=== PATIENT | male | born 1935 | race Caucasian/White ===

== ENCOUNTER 2017-12-01 09:58 | Inpatient (IN) | payer MEDICARE ==
--- NOTE | 2017-12-01 11:33 | ERPHSYRPT ---
- History of Present Illness Time Seen by Provider: 12/01/17 11:13 Source: patient Exam Limitations: no limitations Patient Subjective Stated Complaint: rash Triage Nursing Assessment: pt to er c/o total body rash, states began tuesday, denies exposure to allaergen, no history of such, rash present from neck down, nothing noted on face, states upper lip feels swollen Physician History: The patient is an 82-year-old male with his complaining of a worsening red itchy blotchy rash all over his body that began 3 days ago. He's had no change in his medicines. He is eaten no new foods. He thinks his lips are slightly swollen. He has a sore throat. He denies shortness of breath. He put some old hydrocortisone cream on the rash on his legs. The cortisone cream help the itching somewhat. His past medical history is significant for diabetes, hypertension, high cholesterol, GERD. Timing/Duration: day(s) (3) Quality: itchy Severity: moderate Location: torso, hands, feet, extremities, generalized Possible Causes: no cause identified Modifying Factors: Improves With: scratching, topical steriods Associated Symptoms: hives, No difficulty breathing, No fever Allergies/Adverse Reactions: morphine Adverse Reaction (Verified 12/01/17 10:42) Fainting Home Medications: Aspirin 81 gm Chew [Baby Aspirin 81 mg Chew] 12/01/17 [History] Atenolol 12/01/17 [History] Fenofibrate,Micronized [Fenofibrate] 12/01/17 [History] Glimepiride 2 mg [Amaryl 2 MG] 12/01/17 [History] Glimepiride 2 mg [Amaryl 2 MG] 1.5 tab PO BID 12/01/17 [History] Insulin Glargine,Hum.rec.anlog [Breana Triplett] 12/01/17 [History] Isosorbide Mononitrate 30 mg [Imdur 30 MG] 12/01/17 [History] Lisinopril 5 mg [Zestril 5 MG] 12/01/17 [History] Niacin 12/01/17 [History] Omeprazole 20 MG [Prilosec 20 mg] 12/01/17 [History] Pravastatin Sodium 12/01/17 [History] Warfarin Sodium 2.5 mg [Coumadin 2.5 MG] 12/01/17 [History] Hx Tetanus, Diphtheria Vaccination/Date Given: No Hx Influenza Vaccination/Date Given: Yes Hx Pneumococcal Vaccination/Date Given: Yes - Review of Systems Constitutional: No Fever, No Chills Eyes: No Symptoms Ears, Nose, & Throat: Throat Pain, Painful Swallowing Respiratory: Cough Cardiac: No Chest Pain, No Edema, No Syncope Abdominal/Gastrointestinal: No Abdominal Pain, No Nausea, No Vomiting, No Diarrhea Genitourinary Symptoms: No Dysuria Musculoskeletal: No Back Pain, No Neck Pain Skin: No Rash Neurological: No Dizziness, No Focal Weakness, No Sensory Changes Psychological: No Symptoms Endocrine: No Symptoms Hematologic/Lymphatic: No Symptoms Immunological/Allergic: No Symptoms All Other Systems: Reviewed and Negative - Past Medical History Pertinent Past Medical History: Yes Neurological History: No Pertinent History ENT History: No Pertinent History Cardiac History: Coronary Artery Disease Respiratory History: No Pertinent History Endocrine Medical History: Diabetes Type II Musculoskeletal History: No Pertinent History GI Medical History: Gallbladder Disease History: No Pertinent History Psycho-Social History: No Pertinent History Male Reproductive Disorders: No Pertinent History - Past Surgical History Neuro Surgical History: No Pertinent History Cardiac: No Pertinent History Respiratory: No Pertinent History Gastrointestinal: Cholecystectomy Genitourinary: No Pertinent History Musculoskeletal: No Pertinent History Male Surgical History: No Pertinent History - Social History Smoking Status: Former smoker Exposure to second hand smoke: No Drug Use: none Patient Lives Alone: No - Nursing Vital Signs Nursing Vital Signs: Initial Vital Signs Temperature 97.8 F 12/01/17 10:31 Pulse Rate 88 12/01/17 10:31 Respiratory Rate 20 12/01/17 10:31 Blood Pressure 119/84 12/01/17 10:31 O2 Sat by Pulse Oximetry 96 12/01/17 10:31 Pain Scale Pain Intensity 0 - Physical Exam General Appearance: no apparent distress, alert Eye Exam: PERRL/EOMI, eyes nml inspection Ears, Nose, Throat Exam: other (pinpoint red rash around pharynx.) Neck Exam: normal inspection, non-tender, supple, full range of motion Respiratory Exam: normal breath sounds, lungs clear, No respiratory distress Cardiovascular Exam: regular rate/rhythm, normal heart sounds Gastrointestinal/Abdomen Exam: soft, mass, No tenderness Rectal Exam: not done Back Exam: normal inspection, normal range of motion, No CVA tenderness, No vertebral tenderness Extremity Exam: normal inspection, normal range of motion Neurologic Exam: alert, oriented x 3, cooperative, normal mood/affect, sensation nml, No motor deficits Skin Exam: rash (red rash of multiple sizes on upper and lower extremities, back , chest, abd.) SpO2 Interpretation: normal SpO2: 96 Oxygen Delivery: Room Air - Radiology Exams Chest X-ray Interpretation: Teleradiologist Report, Negative (stable per Dr Soni.) Ordered Tests: Active Orders 24 hr Category Date Time Status Clean Catch Urine Specimen STAT Care 12/01/17 15:07 Active IV Insertion STAT Care 12/01/17 13:57 Active Regular Diet Diet 12/01/17 Dinner Active CHEST 2 VIEWS (PA AND LAT) Stat Exams 12/01/17 11:41 Completed BMP Stat Lab 12/01/17 12:12 Completed CBC W DIFF Stat Lab 12/01/17 12:12 Completed CULTURE, THROAT Stat Lab 12/01/17 12:12 Received Lactic Acid Stat Lab 12/01/17 13:20 Completed Lactic Acid Stat Lab 12/01/17 15:42 Results [place] Screen Stat Lab 12/01/17 14:10 Completed STREP SCREEN-BETA A Stat Lab 12/01/17 12:12 Completed UA W/RFX UR CULTURE Stat Lab 12/01/17 15:07 Ordered Medication Summary Discontinued Medications Generic Name Dose Route Start Last Admin Trade Name Freq PRN Reason Stop Dose Admin Dexamethasone Sodium Phosphate 10 mg 12/01/17 11:42 12/01/17 12:05 Decadron 10mg Inj. IM 12/01/17 11:43 10 mg STAT ONE Administration Dexamethasone Sodium Phosphate Confirm 12/01/17 12:02 Decadron 10mg Inj. Administered 12/01/17 12:03 Dose 10 mg .ROUTE .STK-MED ONE Ceftriaxone Sodium/Dextrose 1 g in 50 mls @ 100 mls/hr 12/01/17 14:00 14:13 Rocephin 1 Gm-D5w 50 Ml Bag IV 12/01/17 14:29 100 mls/hr STAT ONE Administration Sodium Chloride 1,000 mls @ 999 mls/hr 12/01/17 13:57 12/01/17 14:13 Sodium Chloride 0.9% 1000 Ml IV 12/01/17 14:57 999 mls/hr .Q1H1M STA Administration Sodium Chloride Confirm 12/01/17 14:11 Sodium Chloride 0.9% 1000 Ml Administered 12/01/17 14:12 Dose 1,000 mls @ ud .ROUTE .STK-MED ONE Ceftriaxone Sodium/Dextrose Confirm 12/01/17 14:11 Rocephin 1 Gm-D5w 50 Ml Bag Administered 12/01/17 14:12 Dose 1 g in 50 mls @ ud IV .STK-MED ONE Lab/Rad Data: Laboratory Result Diagrams 12/01/17 12:12 12/01/17 12:12 Laboratory Results 12/01/17 12/01/17 12/01/17 Range/Units 15:42 14:30 14:10 WBC (4.0-10.5) K/mm3 RBC (4.1-5.6) M/mm3 Hgb (12.5-18.0) gm/dl Hct (42-50) % MCV (78-100) fl MCH (26-32) pg MCHC (32-36) g/dl RDW (11.5-14.0) % Plt Count (150-450) K/mm3 MPV (6-9.5) fl Gran % (36.0-66.0) % Lymphocytes % (24.0-44.0) % Monocytes % (0.0-12.0) % Eosinophils % (0.00-5.0) % Basophils % (0.0-0.4) % Basophils # (0-0.4) Sodium (136-145) mEq/L Potassium (3.5-5.1) mEq/L Chloride (98-107) mEq/L Carbon Dioxide (21-32) mEq/L Anion Gap (5-15) MEQ/L BUN (9-20) mg/dL Creatinine (0.55-1.30) mg/dl Estimated GFR ML/MIN Glucose (70-110) MG/DL Lactic Acid 2.2 H (0.4-2.0) Calcium (8.5-10.1) mg/dL Monoscreen NEGATIVE (Negative) Influenza Type A Ag NEGATIVE (NEGATIVE) Influenza Type B Ag NEGATIVE (NEGATIVE) RSV (PCR) NEGATIVE (Negative) Streptococcus Screen (Negative) 12/01/17 12/01/17 12/01/17 Range/Units 13:20 12:12 12:12 WBC (4.0-10.5) K/mm3 RBC (4.1-5.6) M/mm3 Hgb (12.5-18.0) gm/dl Hct (42-50) % MCV (78-100) fl MCH (26-32) pg MCHC (32-36) g/dl RDW (11.5-14.0) % Plt Count (150-450) K/mm3 MPV (6-9.5) fl Gran % (36.0-66.0) % Lymphocytes % (24.0-44.0) % Monocytes % (0.0-12.0) % Eosinophils % (0.00-5.0) % Basophils % (0.0-0.4) % Basophils # (0-0.4) Sodium 130 L (136-145) mEq/L Potassium 4.3 (3.5-5.1) mEq/L Chloride 97 L (98-107) mEq/L Carbon Dioxide 23.7 (21-32) mEq/L Anion Gap 10.2 (5-15) MEQ/L BUN 23 H (9-20) mg/dL Creatinine 1.36 H (0.55-1.30) mg/dl Estimated GFR 53 ML/MIN Glucose 291 H (70-110) MG/DL Lactic Acid 2.5 H (0.4-2.0) Calcium 9.4 (8.5-10.1) mg/dL Monoscreen (Negative) Influenza Type A Ag (NEGATIVE) Influenza Type B Ag (NEGATIVE) RSV (PCR) (Negative) Streptococcus Screen NEGATIVE (Negative) 12/01/17 Range/Units 12:12 WBC 12.9 H (4.0-10.5) K/mm3 RBC 5.03 (4.1-5.6) M/mm3 Hgb 14.6 (12.5-18.0) gm/dl Hct 45.2 (42-50) % MCV 89.9 (78-100) fl MCH 29.0 (26-32) pg MCHC 32.3 (32-36) g/dl RDW 14.1 H (11.5-14.0) % Plt Count 287 (150-450) K/mm3 MPV 11.4 H (6-9.5) fl Gran % 80.5 H (36.0-66.0) % Lymphocytes % 10.6 L (24.0-44.0) % Monocytes % 6.1 (0.0-12.0) % Eosinophils % 2.4 (0.00-5.0) % Basophils % 0.4 (0.0-0.4) % Basophils # 0.05 (0-0.4) Sodium (136-145) mEq/L Potassium (3.5-5.1) mEq/L Chloride (98-107) mEq/L Carbon Dioxide (21-32) mEq/L Anion Gap (5-15) MEQ/L BUN (9-20) mg/dL Creatinine (0.55-1.30) mg/dl Estimated GFR ML/MIN Glucose (70-110) MG/DL Lactic Acid (0.4-2.0) Calcium (8.5-10.1) mg/dL Monoscreen (Negative) Influenza Type A Ag (NEGATIVE) Influenza Type B Ag (NEGATIVE) RSV (PCR) (Negative) Streptococcus Screen (Negative) - Progress Progress: unchanged Discussed with : Freddy Will see patient in: hospital (observation) Counseled pt/family regarding: lab results, diagnosis, rad results - Departure Time of Disposition: 15:48 Departure Disposition: Observation (per Dr Hayes) Clinical Impression: Rash Condition: Stable Critical Care Time: No Referrals: CONY BENSON [Primary Care Provider] -
[2017-12-01] MEDS ORDERED: DECADRON 10MG INJ. IM ONE (11:42)
[2017-12-01] MEDS ORDERED: DECADRON 10MG INJ. ONE (12:02)
--- NOTE | 2017-12-01 12:12 | XRAY ---
Indication: Cough and rash. Comparison: April 21, 2008. PA/lateral chest again markedly hyperinflated with scattered fibrosis/scarring and tiny calcific granulomas. No focal infiltrate, consolidation, or large effusion. Heart is not enlarged. Bony thorax intact again with osteopenia and degenerative changes. Impression: Stable nonacute hyperinflated chest with chronic features.
[2017-12-01 12:14] LABS: BASOPHIL % 0.4 % (0.0-0.4); Basophil (Absolute #) 0.05 (0-0.4); Eosinophil % 2.4 % (0.00-5.0); Eosinophil (Absolute #) 0.31 (0-0.5); Granulocyte Absolute (ANC) 10.38 (1.4-6.9); Granulocytes % 80.5 % (36.0-66.0); Hematocrit 45.2 % (42-50); Hemoglobin 14.6 gm/dl (12.5-18.0); Lymphocyte (Absolute #) 1.37 (1.0-4.6); Lymphocytes % 10.6 % (24.0-44.0); Mean Cell Volume 89.9 fl (78-100); Mean Corpuscular Hgb Concent. 32.3 g/dl (32-36); Mean Platelet Volume 11.4 fl (6-9.5); Monocyte (Absolute #) 0.79 (0.0-1.3); Monocytes % 6.1 % (0.0-12.0); Platelet Count 287 K/mm3 (150-450); Red Blood Count 5.03 M/mm3 (4.1-5.6); Red Cell Distribution Width 14.1 % (11.5-14.0); White Blood Count 12.9 K/mm3 (4.0-10.5)
[2017-12-01 12:34] LABS: ANION GAP 10.2 MEQ/L (5-15); Calcium 9.4 mg/dL (8.5-10.1); Carbon Dioxide 23.7 mEq/L (21-32); Creatinine 1 1.36 mg/dl (0.55-1.30); Potassium 4.3 mEq/L (3.5-5.1)
[2017-12-01 13:24] LABS: Lactic Acid 2.5 (0.4-2.0)
[2017-12-01] MEDS ORDERED: Sodium Chloride 0.9% 1000 ML 1,000 ML IV STA (13:57)
[2017-12-01] MEDS ORDERED: ROCEPHIN 1 Gm-D5w 50 ml Bag** 1 G/50 ML IVPB IV ONE ×2 (14:00→14:11)
[2017-12-01] MEDS ORDERED: Sodium Chloride 0.9% 1000 ML 1,000 ML ONE (14:11)
[2017-12-01 15:02] LABS: INFLUENZA A NEGATIVE (NEGATIVE); INFLUENZA B NEGATIVE (NEGATIVE); RESPIRATORY SYNCTIAL VIRUS NEGATIVE (Negative)
[2017-12-01 15:46] LABS: Lactic Acid 2.2 (0.4-2.0)
[2017-12-01 15:56] LABS: Appearance CLEAR (CLEAR); Bilirubin NEGATIVE (NEGATIVE); Blood NEGATIVE Ery/ul (0-5); Glucose 500 mg/dL (NEGATIVE); Ketones NEGATIVE (NEGATIVE); Leukocyte Esterase NEGATIVE (NEGATIVE); Nitrite NEGATIVE (NEGATIVE); Protein,Urine Dip NEGATIVE (Negative); Urobilinogen NORMAL mg/dL (0-1)
[2017-12-01 18:09] LABS: INR 3.04 (0.8-3.0)
--- NOTE | 2017-12-01 20:16 | PCM.HP ---
History of Present Illness - Chief Complaint Chief Complaint: rash History of Present Illness: is a 82 year old male pt of Dr. Simon who came to ER c/o 3 d of rash. It started with skin itching and some redness. Yesterday he states he could count the number of lesions on his R thigh, but today there are innumerable lesions over the whole body, sparing the face. They are somewhat itchy. Not painful. Overall he has been feeling well, some cough over th elast week or two, otherwise no sx. He feels the rash gets more red when he needs to urinate. He received some IV steroid and IV antibiotic in the ER but is not seeing any decrease in the rash so far. Pt denies any recent medication change. His did start using a different kind of bleach in the white clothes recently, otherwise no changes in household products. - Review of Systems Ears, Nose, & Throat: Throat Pain Respiratory: Cough Psychological: Suicidal Ideations (vague, non specific - wouldn't do it because "I'm a coward." and "I have a loving family"), No Anxiety, No Depression All Other Systems: Reviewed and Negative Medications & Allergies Home Medications: Home Medication List Aspirin 81 gm Chew [Baby Aspirin 81 mg Chew] 81 PO HS 12/01/17 [History] Atenolol 25 PO DAILY 12/01/17 [History] Fenofibrate,Micronized [Fenofibrate] 134 PO HS 12/01/17 [History] Glimepiride 2 mg [Amaryl 2 MG] 1.5 tab PO BID 12/01/17 [History Confirmed 12/01/17] Insulin Glargine,Hum.rec.anlog [Breana Triplett] 50 units HS 12/01/17 [History Confirmed 12/01/17] Isosorbide Mononitrate 30 mg [Imdur 30 MG] 30 PO DAILY 12/01/17 [History] Lisinopril 5 mg [Zestril 5 MG] 5 PO DAILY 12/01/17 [History] Niacinamide [Niacin] 1,000 mg PO HS 12/01/17 [History] Omeprazole 20 MG [Prilosec 20 mg] 20 PO HS 12/01/17 [History] Pravastatin Sodium 40 PO HS 12/01/17 [History] Warfarin Sodium 2.5 mg [Coumadin 2.5 MG] 2.5 PO HS 12/01/17 [History] Allergies/Adverse Reactions: Allergies Allergy/AdvReac Type Severity Reaction Status Date / Time morphine AdvReac Fainting Verified 12/01/17 10:42 - Past Medical History Past Medical History: Yes Neurological History: No Pertinent History ENT History: No Pertinent History Cardiac History: Coronary Artery Disease Respiratory History: No Pertinent History Endocrine Medical History: Diabetes Type II Musculoskelatal History: No Pertinent History GI Medical History: Gallbladder Disease History: No Pertinent History Pyscho-Social History: No Pertinent History Male Reproductive Disorders: No Pertinent History - Past Surgical History Past Surgical History: Yes (gallbladder, 2 stents) Neuro Surgical History: No Pertinent History Cardiac History: No Pertinent History Respiratory Surgery: No Pertinent History GI Surgical History: Cholecystectomy Genitourinary Surgical Hx: No Pertinent History Musculskeletal Surgical Hx: No Pertinent History Male Surgical History: No Pertinent History - Social History Smoking Status: Never smoker Exposure to second hand smoke: No Alcohol: None Drug Use: none - Physical Exam Vital Signs: Vital Signs - 24 hr Temp Pulse Resp BP Pulse Ox 12/01/17 17:50 98.4 F 78 16 122/62 98 12/01/17 17:05 98.5 F 76 18 126/76 94 L 12/01/17 17:03 98.3 F 78 18 126/76 93 L 12/01/17 16:50 98.6 F 76 20 130/62 94 L 12/01/17 16:44 98.6 F 80 20 130/68 94 L 12/01/17 16:40 98.3 F 78 18 126/76 93 L 12/01/17 15:54 96 12/01/17 15:50 98.3 F 78 18 128/71 93 L 12/01/17 15:09 74 16 110/59 93 L 12/01/17 11:56 70 20 120/80 97 12/01/17 10:31 97.8 F 88 20 119/84 96 General Appearance: no apparent distress, alert Neurologic Exam: oriented x 3, cooperative Eye Exam: eyes nml inspection, other (no lesions near eyes; no lesions on face) Ears, Nose, Throat Exam: moist mucous membranes, pharyngeal erythema (soft palate wiht erythematous area vs 2 confluent lesions) Neck Exam: normal inspection, non-tender, supple, No lymphadenopathy Respiratory Exam: normal breath sounds, lungs clear, No crackles/rales, No rhonchi, No wheezing Cardiovascular Exam: regular rate/rhythm, normal heart sounds, No murmur Gastrointestinal/Abdomen Exam: soft, normal bowel sounds, No tenderness, No distention, No mass, No guarding, No rebound Extremity Exam: other (R ankle medially with curvilinear abrasion wiht surrounding erythema), No pedal edema, No swelling Skin Exam: warm, dry, rash (numerous erythematous small papules, some with blanching erythema, over legs, feet, arms, abdomen, back. There are some in the groin area. Some on plantar surfaces and palmar surfaces. Somewhat coalescent at elbows and groin. nttp. no pustules.) Assessment/Plan (1) Rash Current Visit: Yes Status: Acute Assessment & Plan: I don't believe this is infectious, he's really had no prodromal symptoms. Concern for Atkins-Vincenzo Syndrome or erythema multiforme (although pt reallydoes not have typical target lesions). Check ESR and CRP. If no improvement in the morning, will biopsy a lesion or two. If worsening tomorrow , would consider transfer to level of care with ID or dermatology available. He is certainly feeling well and stable at this point. Code(s): R21 - RASH AND OTHER NONSPECIFIC SKIN ERUPTION
[2017-12-01] MEDS ORDERED: CHLORASEPTIC SPRAY 180 ML PO PRN (20:50)
[2017-12-01] MEDS ORDERED: ECOTRIN 81 MG PO ONE (20:59)
[2017-12-01] MEDS ORDERED: XYLOCAINE 1%/Epi 1:100000 MDV 20 ML ONE (21:52)
[2017-12-01] MEDS ORDERED: ZOCOR 20MG PO SCH (22:00)
[2017-12-01] MEDS ORDERED: BABY ASPIRIN 81 MG CHEW PO SCH (22:00)
[2017-12-01] MEDS: Amaryl 2 MG PO SCH (22:33)
[2017-12-01] MEDS: Protonix 40MG Tablet PO SCH (22:34)
[2017-12-01] MEDS: Coumadin 2.5 MG PO SCH (22:35)
[2017-12-02] MEDS ORDERED: Lantus Insulin SQ SCH ×3 (01:06→22:00)
[2017-12-02 05:40] LABS: Lactic Acid 2.6 (0.4-2.0)
[2017-12-02 05:58] LABS: BASOPHIL % 0.2 % (0.0-0.4); Basophil (Absolute #) 0.04 (0-0.4); Eosinophil % 0.3 % (0.00-5.0); Eosinophil (Absolute #) 0.06 (0-0.5); Granulocyte Absolute (ANC) 16.44 (1.4-6.9); Granulocytes % 87.2 % (36.0-66.0); Hematocrit 39.9 % (42-50); Hemoglobin 12.9 gm/dl (12.5-18.0); Lymphocyte (Absolute #) 1.31 (1.0-4.6); Mean Cell Volume 90.1 fl (78-100); Mean Corpuscular Hemoglobin 29.1 pg (26-32); Mean Corpuscular Hgb Concent. 32.3 g/dl (32-36); Mean Platelet Volume 11.8 fl (6-9.5); Monocyte (Absolute #) 0.99 (0.0-1.3); Monocytes % 5.3 % (0.0-12.0); Platelet Count 308 K/mm3 (150-450); Red Blood Count 4.43 M/mm3 (4.1-5.6); Red Cell Distribution Width 13.7 % (11.5-14.0); White Blood Count 18.8 K/mm3 (4.0-10.5)
[2017-12-02 06:11] LABS: ANION GAP 15.3 MEQ/L (5-15); Calcium 9.3 mg/dL (8.5-10.1); Carbon Dioxide 23.8 mEq/L (21-32); Creatinine 1 1.31 mg/dl (0.55-1.30); Potassium 4.2 mEq/L (3.5-5.1)
--- NOTE | 2017-12-02 09:05 | PCM.NOTE ---
Date and Time: 12/02/17 0900 Subjective Assessment: Pt thinks his rash is perhaps a little better on his R forearm. Itchy. Harvinder po well. Otherwise feeling well. - Review of Systems Constitutional: No Fever Skin: Rash Objective Exam General Appearance: no apparent distress, alert Neurologic Exam: oriented x 3, cooperative Skin Exam: warm, dry, rash (as before, numerous erythematous papules on erythematous base, at times confluent) Respiratory Exam: normal breath sounds, lungs clear, No crackles/rales, No rhonchi, No wheezing Cardiovascular Exam: regular rate/rhythm, normal heart sounds, No murmur OBJECTIVE DATA Vital Signs: Vital Signs - 24 hr Temp Pulse Resp BP Pulse Ox 12/02/17 07:00 97.7 F 77 18 134/89 94 L 12/02/17 03:00 97.8 F 76 20 99/51 93 L 12/01/17 23:53 98.1 F 84 18 143/67 93 L 12/01/17 21:40 98.1 F 81 18 144/65 94 L 12/01/17 17:50 98.4 F 78 16 122/62 98 12/01/17 17:05 98.5 F 76 18 126/76 94 L 12/01/17 17:03 98.3 F 78 18 126/76 93 L 12/01/17 16:50 98.6 F 76 20 130/62 94 L 12/01/17 16:44 98.6 F 80 20 130/68 94 L 12/01/17 16:40 98.3 F 78 18 126/76 93 L 12/01/17 15:54 96 12/01/17 15:50 98.3 F 78 18 128/71 93 L 12/01/17 15:09 74 16 110/59 93 L 12/01/17 11:56 70 20 120/80 97 12/01/17 10:31 97.8 F 88 20 119/84 96 Pain Assessment - Last Documented Pain Intensity 0 Pain Scale Used FLACC Intake and Output: Intake & Output 11/29/17 11/30/17 12/01/17 12/02/17 11:59 11:59 11:59 11:59 Intake Total 1220 Balance 1220 Weight 87.1 kg Lab Results: Accuchecks Accucheck Value: 248 Lab Results-Last 24 Hours 12/02/17 12/02/17 12/02/17 Range/Units 05:25 05:25 05:25 WBC 18.8 H (4.0-10.5) K/mm3 RBC 4.43 (4.1-5.6) M/mm3 Hgb 12.9 (12.5-18.0) gm/dl Hct 39.9 L (42-50) % MCV 90.1 (78-100) fl MCH 29.1 (26-32) pg MCHC 32.3 (32-36) g/dl RDW 13.7 (11.5-14.0) % Plt Count 308 (150-450) K/mm3 MPV 11.8 H (6-9.5) fl Gran % 87.2 H (36.0-66.0) % Lymphocytes % 7.0 L (24.0-44.0) % Monocytes % 5.3 (0.0-12.0) % Eosinophils % 0.3 (0.00-5.0) % Basophils % 0.2 (0.0-0.4) % Basophils # 0.04 (0-0.4) ESR 5 (0-15) mm/hr Sodium 138 (136-145) mEq/L Potassium 4.2 (3.5-5.1) mEq/L Chloride 103 (98-107) mEq/L Carbon Dioxide 23.8 (21-32) mEq/L Anion Gap 15.3 H (5-15) MEQ/L BUN 22 H (9-20) mg/dL Creatinine 1.31 H (0.55-1.30) mg/dl Estimated GFR 56 ML/MIN Glucose 297 H (70-110) MG/DL Lactic Acid (0.4-2.0) Calcium 9.3 (8.5-10.1) mg/dL 12/02/17 Range/Units 05:30 WBC (4.0-10.5) K/mm3 RBC (4.1-5.6) M/mm3 Hgb (12.5-18.0) gm/dl Hct (42-50) % MCV (78-100) fl MCH (26-32) pg MCHC (32-36) g/dl RDW (11.5-14.0) % Plt Count (150-450) K/mm3 MPV (6-9.5) fl Gran % (36.0-66.0) % Lymphocytes % (24.0-44.0) % Monocytes % (0.0-12.0) % Eosinophils % (0.00-5.0) % Basophils % (0.0-0.4) % Basophils # (0-0.4) ESR (0-15) mm/hr Sodium (136-145) mEq/L Potassium (3.5-5.1) mEq/L Chloride (98-107) mEq/L Carbon Dioxide (21-32) mEq/L Anion Gap (5-15) MEQ/L BUN (9-20) mg/dL Creatinine (0.55-1.30) mg/dl Estimated GFR ML/MIN Glucose (70-110) MG/DL Lactic Acid 2.6 H (0.4-2.0) Calcium (8.5-10.1) mg/dL Assessment/Plan (1) Rash Current Visit: Yes Status: Acute Assessment & Plan: ESR is nl. WBC elevated today but he received decadron in ER yesterday. May have slight improvement; give IV solumedrol now and if d/c to home will give kenalog before discharge. Biopsy taken of area on R lower back and sent to pathology. I will discuss with dermatology, would like for them to see him today. Code(s): R21 - RASH AND OTHER NONSPECIFIC SKIN ERUPTION (2) Abrasion Current Visit: Yes Status: Acute Assessment & Plan: On ankle. Received IV rocephin for this. Code(s): T14.8XXA - OTHER INJURY OF UNSPECIFIED BODY REGION, INITIAL ENCOUNTER
[2017-12-02] MEDS ORDERED: solu-MEDROL 40 MG IV ONE (09:30)
[2017-12-02] MEDS ORDERED: TENORMIN 50 MG PO SCH (10:00)
[2017-12-02] MEDS ORDERED: Zestril 5 MG PO SCH (10:00)
[2017-12-02] MEDS: ROCEPHIN 1 Gm-D5w 50 ml Bag** 1 G/50 ML IVPB IV SCH (10:33)
[2017-12-02] MEDS: Amaryl 2 MG PO SCH (10:34)
[2017-12-02] MEDS: Imdur 30 MG PO SCH (10:34)
[2017-12-02] MEDS ORDERED: Sodium Chloride 0.9% 1000 ML 1,000 ML IV SCH ×2 (12:30→16:30)
[2017-12-02] MEDS: Sodium Chloride 0.9% 1000 ML 1,000 ML IV SCH ×2 (13:04→15:36)
[2017-12-02] MEDS: NovoLOG Insulin SQ PRN ×3 (13:12→22:11)
[2017-12-02] MEDS ORDERED: Kenalog-40 IM ONE (14:45)
[2017-12-02 15:12] LABS: Lactic Acid 3.1 (0.4-2.0)
[2017-12-02] MEDS: BENADRYL 25 MG CAPSULE PO PRN ×2 (18:39→23:31)
[2017-12-02 20:41] LABS: Lactic Acid 3.7 (0.4-2.0)
[2017-12-02] MEDS ORDERED: BABY ASPIRIN 81 MG CHEW PO SCH (22:00)
[2017-12-02] MEDS ORDERED: ECOTRIN 81 MG PO SCH (22:00)
[2017-12-02] MEDS ORDERED: Tricor 145 MG PO SCH (22:00)
[2017-12-02] MEDS: Protonix 40MG Tablet PO SCH (22:10)
[2017-12-02] MEDS: Coumadin 2.5 MG PO SCH (22:10)
[2017-12-02] MEDS: CHLORASEPTIC SPRAY 180 ML PO PRN (22:55)
[2017-12-03] MEDS: CHLORASEPTIC SPRAY 180 ML PO PRN ×2 (03:05→08:06)
[2017-12-03 06:39] LABS: ALBUMIN 3.1 g/dL (3.4-5.0); ALKALINE PHOSPHATASE 52 U/L (46-116); ANION GAP 11.4 MEQ/L (5-15); BLOOD UREA NITROGEN 19 mg/dL (9-20); CHLORIDE 105 mEq/L (98-107); Calcium 8.6 mg/dL (8.5-10.1); Carbon Dioxide 25.4 mEq/L (21-32); Creatinine 1 1.18 mg/dl (0.55-1.30); EST GLOMERULAR FILTRATION RATE > 60 ML/MIN; Glucose 232 MG/DL (70-110); SGOT/AST 16 U/L (15-37); SGPT/ALT 13 U/L (12-78); SODIUM 138 mEq/L (136-145); Total Protein 6.2 gm/dL (6.4-8.2)
[2017-12-03 06:42] LABS: INR 2.81 (0.8-3.0)
[2017-12-03] MEDS ORDERED: NovoLOG Insulin SQ SCH (07:30)
[2017-12-03] MEDS: BENADRYL 25 MG CAPSULE PO PRN ×6 (08:05→22:52)
[2017-12-03] MEDS: Imdur 30 MG PO SCH (08:06)
[2017-12-03] MEDS: ROCEPHIN 1 Gm-D5w 50 ml Bag** 1 G/50 ML IVPB IV SCH ×2 (11:12→13:03)
--- NOTE | 2017-12-03 11:31 | PCM.NOTE ---
Date and Time: 12/03/17 1125 Subjective Assessment: rash no change swelling and pain in throat worsening. feeling swollen in hands and more short of breath Objective Exam General Appearance: no apparent distress, obese Neurologic Exam: alert, oriented x 3, cooperative Skin Exam: warm, dry, other (diffuse bright red raised macular papular rash with some pustules sparing the face and head and involving the left sole and bilateral palms. no draining pustules. involves testicles bilateral but no chancaroid. no herrald patch and does not follow Beau lines.) Eye Exam: PERRL, EOMI, No scleral icterus, No pale conjunctivae Ears, Nose, Throat Exam: moist mucous membranes (pharyngitis and uvulitis) Neck Exam: non-tender, supple, full range of motion, No meningismus, No Brudzinski, No Kernig's Respiratory Exam: normal breath sounds, lungs clear, No crackles/rales, No rhonchi, No wheezing Cardiovascular Exam: regular rate/rhythm, normal heart sounds, No murmur Gastrointestinal/Abdomen Exam: soft, normal bowel sounds, No tenderness, No distention, No mass Extremity Exam: normal inspection, other (bilateral mild edema hands) Male Genitalia Exam: other (the same lesions present on the trunk also involve scrotum and penis to lesser extent but no open ulcerations or chancaroid), No testicular mass OBJECTIVE DATA Vital Signs: Vital Signs - 24 hr Temp Pulse Resp BP BP Pulse Ox 12/03/17 07:42 98.3 F 60 20 126/61 95 12/03/17 04:00 97.6 F 61 24 102/52 94 L 12/03/17 00:00 97.6 F 64 20 114/55 91 L 12/02/17 20:00 98.4 F 63 24 118/58 89/54 91 L 12/02/17 16:00 97.9 F 92 H 18 89/54 92 L Pain Assessment - Last Documented Pain Intensity 0 Pain Scale Used 0-10 Pain Scale Intake and Output: Intake & Output 11/30/17 12/01/17 12/02/17 12/03/17 11:59 11:59 11:59 11:59 Intake Total 1760 5453 Output Total 2960 Balance 1760 2813 Weight 87.1 kg Lab Results: Accuchecks Date 12/03/17 Date 12/02/17 Time 07:30 Accucheck Value: 221 Accucheck Value: 298 Accucheck Value: 362 Accucheck Value: 342 Lab Results-Last 24 Hours 12/02/17 12/02/17 12/02/17 Range/Units 05:25 15:00 20:29 INR (0.8-3.0) Sodium (136-145) mEq/L Potassium (3.5-5.1) mEq/L Chloride (98-107) mEq/L Carbon Dioxide (21-32) mEq/L Anion Gap (5-15) MEQ/L BUN (9-20) mg/dL Creatinine (0.55-1.30) mg/dl Estimated GFR ML/MIN Glucose (70-110) MG/DL Hemoglobin A1c 10.0 H (4.5-6.2) Lactic Acid 3.1 H 3.7 H (0.4-2.0) Calcium (8.5-10.1) mg/dL Total Bilirubin (0.2-1.0) mg/dL AST (15-37) U/L ALT (12-78) U/L Alkaline Phosphatase (46-116) U/L Serum Total Protein (6.4-8.2) gm/dL Albumin (3.4-5.0) g/dL 12/03/17 12/03/17 12/03/17 Range/Units 05:45 05:45 05:45 INR 2.81 (0.8-3.0) Sodium 138 (136-145) mEq/L Potassium 4.0 (3.5-5.1) mEq/L Chloride 105 (98-107) mEq/L Carbon Dioxide 25.4 (21-32) mEq/L Anion Gap 11.4 (5-15) MEQ/L BUN 19 (9-20) mg/dL Creatinine 1.18 (0.55-1.30) mg/dl Estimated GFR > 60 ML/MIN Glucose 232 H (70-110) MG/DL Hemoglobin A1c (4.5-6.2) Lactic Acid 1.7 (0.4-2.0) Calcium 8.6 (8.5-10.1) mg/dL Total Bilirubin 0.40 (0.2-1.0) mg/dL AST 16 (15-37) U/L ALT 13 (12-78) U/L Alkaline Phosphatase 52 (46-116) U/L Serum Total Protein 6.2 L (6.4-8.2) gm/dL Albumin 3.1 L (3.4-5.0) g/dL Assessment/Plan (1) Shortness of breath Current Visit: Yes Status: Acute Assessment & Plan: he presented with a diffuse rash sparing the face and involving the palms and left sole he had a cat scratch on the right foot that is more red and irritated and occurred prior to the rash. cover for cellulites due to cat scratch will change from ceftriaxone to unasyn the disseminated rash need to rule out secondary syphilis RPR is pending will place in contact isolation pending results With the increased swelling in throat monitor for worsening respiratory distress with the lactic acidosis now improving less likely vasculitis with the normal esr and lack of improvement with the steroids ANCA testing and skin biopsy pending Possible drug reaction: have d/c his glyburide, lisinopril and atenolol monitor for symptoms none of the medications were new Continue titrate the insulin for uncontrolled diabetes chronically worse with the steroids he had no exposure to ticks, or uncooked seafood and no travel, it is not in the typical distribution for pityriasis rosea Code(s): R06.02 - SHORTNESS OF BREATH (2) Throat swelling Current Visit: Yes Status: Acute Code(s): R22.1 - LOCALIZED SWELLING, MASS AND LUMP, NECK (3) Rash Current Visit: Yes Status: Acute Code(s): R21 - RASH AND OTHER NONSPECIFIC SKIN ERUPTION (4) Uncontrolled diabetes mellitus Current Visit: Yes Status: Acute Code(s): E11.65 - TYPE 2 DIABETES MELLITUS WITH HYPERGLYCEMIA (5) Pharyngitis Current Visit: Yes Status: Acute Code(s): J02.9 - ACUTE PHARYNGITIS, UNSPECIFIED (6) Cat scratch Current Visit: Yes Status: Acute Code(s): W55.03XA - SCRATCHED BY CAT, INITIAL ENCOUNTER (7) Cellulitis Current Visit: Yes Status: Acute Code(s): L03.90 - CELLULITIS, UNSPECIFIED
[2017-12-03] MEDS: NovoLOG Insulin SQ SCH ×2 (12:21→16:55)
[2017-12-03] MEDS: Unasyn 3GM / NaCl 100ML 3 GM/100 ML IVPB IV SCH ×3 (12:21→23:00)
[2017-12-03] MEDS: NovoLOG Insulin SQ PRN (12:22)
[2017-12-03 17:19] LABS: BASOPHIL % 0.3 % (0.0-0.4); Basophil (Absolute #) 0.06 (0-0.4); Eosinophil % 3.1 % (0.00-5.0); Eosinophil (Absolute #) 0.56 (0-0.5); Granulocyte Absolute (ANC) 15.26 (1.4-6.9); Granulocytes % 83.6 % (36.0-66.0); Hematocrit 41.8 % (42-50); Hemoglobin 13.2 gm/dl (12.5-18.0); Lymphocytes % 7.1 % (24.0-44.0); Mean Cell Volume 93.5 fl (78-100); Mean Corpuscular Hemoglobin 29.5 pg (26-32); Mean Corpuscular Hgb Concent. 31.6 g/dl (32-36); Mean Platelet Volume 12.6 fl (6-9.5); Monocyte (Absolute #) 1.08 (0.0-1.3); Monocytes % 5.9 % (0.0-12.0); Platelet Count 273 K/mm3 (150-450); Red Blood Count 4.47 M/mm3 (4.1-5.6); Red Cell Distribution Width 14.3 % (11.5-14.0); White Blood Count 18.3 K/mm3 (4.0-10.5)
[2017-12-03] MEDS: Protonix 40MG Tablet PO SCH (22:52)
[2017-12-03] MEDS: Coumadin 2.5 MG PO SCH (22:52)
[2017-12-03] MEDS: Lantus Insulin SQ SCH (22:53)
[2017-12-04] MEDS: Unasyn 3GM / NaCl 100ML 3 GM/100 ML IVPB IV SCH (05:14)
[2017-12-04 05:50] LABS: Granulocyte Absolute (ANC) 9.55 (1.4-6.9); Hematocrit 40.4 % (42-50); Hemoglobin 13.2 gm/dl (12.5-18.0); Mean Cell Volume 90.4 fl (78-100); Mean Corpuscular Hemoglobin 29.5 pg (26-32); Mean Corpuscular Hgb Concent. 32.7 g/dl (32-36); Mean Platelet Volume 11.9 fl (6-9.5); Platelet Count 270 K/mm3 (150-450); Red Blood Count 4.47 M/mm3 (4.1-5.6); White Blood Count 12.8 K/mm3 (4.0-10.5)
[2017-12-04 06:05] LABS: ALBUMIN 3.1 g/dL (3.4-5.0); ALKALINE PHOSPHATASE 41 U/L (46-116); ANION GAP 12.3 MEQ/L (5-15); BLOOD UREA NITROGEN 19 mg/dL (9-20); CHLORIDE 105 mEq/L (98-107); Calcium 8.7 mg/dL (8.5-10.1); Carbon Dioxide 25.3 mEq/L (21-32); Creatinine 1 1.22 mg/dl (0.55-1.30); EST GLOMERULAR FILTRATION RATE > 60 ML/MIN; Glucose 198 MG/DL (70-110); SGOT/AST 16 U/L (15-37); SGPT/ALT 15 U/L (12-78); SODIUM 139 mEq/L (136-145); Total Protein 6.2 gm/dL (6.4-8.2)
[2017-12-04 06:11] LABS: INR 2.63 (0.8-3.0)
[2017-12-04 07:38] LABS: BAND 1 % (0.0-2.0); Eosinophil 5 % (0.00-3.0); Lymphocytes 16 % (24-44); Monocyte 2 % (0.0-12.0); Neutrophils 76 % (36.-66.); Platelet Estimate NORMAL (NORMAL); Total Cells Counted 100
[2017-12-04 07:39] LABS: Toxic Granulation 1+
[2017-12-04] MEDS: NovoLOG Insulin SQ SCH ×3 (07:54→17:07)
[2017-12-04] MEDS: Imdur 30 MG PO SCH (07:54)
[2017-12-04] MEDS: BENADRYL 25 MG CAPSULE PO PRN ×4 (08:02→21:42)
--- NOTE | 2017-12-04 09:21 | PCM.NOTE ---
Date and Time: 12/04/17914 Subjective Assessment: the rash is relatively unchanged throat swelling and difficulty breathing is resolved throat pain improving now some irritation of tongue as well lips dry swelling in hands and feet improving Objective Exam General Appearance: no apparent distress, alert Neurologic Exam: alert, oriented x 3, cooperative, normal mood/affect, nml cerebellar function, sensation nml, No motor deficits Skin Exam: warm, dry, rash (diffuse nonblanching macular papular rash with some pustules sparing the face and neck involving the palms and soles) Eye Exam: PERRL, EOMI, eyes nml inspection Ears, Nose, Throat Exam: normal ENT inspection, pharynx normal, moist mucous membranes Neck Exam: normal inspection, non-tender, supple, full range of motion Respiratory Exam: normal breath sounds, lungs clear, No respiratory distress Cardiovascular Exam: regular rate/rhythm, normal heart sounds Gastrointestinal/Abdomen Exam: soft, No tenderness, No mass Extremity Exam: normal inspection, normal range of motion Back Exam: normal inspection, normal range of motion, No CVA tenderness, No vertebral tenderness Male Genitalia Exam: deferred Rectal Exam: deferred OBJECTIVE DATA Vital Signs: Vital Signs - 24 hr Temp Pulse Resp BP Pulse Ox 12/04/17 07:31 98.2 F 80 20 130/76 97 12/04/17 04:00 98.5 F 74 18 134/65 90 L 12/04/17 00:00 98.1 F 79 22 129/63 93 L 12/03/17 20:00 97.8 F 75 20 131/69 93 L 12/03/17 16:00 96.4 F 116/65 12/03/17 12:00 97.8 F Pain Assessment - Last Documented Pain Intensity 0 Pain Scale Used 0-10 Pain Scale Intake and Output: Intake & Output 12/01/17 12/02/17 12/03/17 12/04/17 11:59 11:59 11:59 11:59 Intake Total 1250 Output Total 2400 Balance -1150 Lab Results: Accuchecks Date 12/04/17 Date 12/03/17 Date 12/03/17 Date 12/03/17 Time 07:32 Time 22:00 Time 22:00 Time 16:30 Accucheck Value: 170 Accucheck Value: 189 Accucheck Value: 189 Accucheck Value: 160 Lab Results-Last 24 Hours 12/04/17 12/04/17 12/04/17 Range/Units 05:15 05:15 05:15 WBC 12.8 H (4.0-10.5) K/mm3 RBC 4.47 (4.1-5.6) M/mm3 Hgb 13.2 (12.5-18.0) gm/dl Hct 40.4 L (42-50) % MCV 90.4 (78-100) fl MCH 29.5 (26-32) pg MCHC 32.7 (32-36) g/dl RDW 14.0 (11.5-14.0) % Plt Count 270 (150-450) K/mm3 MPV 11.9 H (6-9.5) fl Segmented Neutrophils 76 H (36.-66.) % Band Neutrophils 1 (0.0-2.0) % Lymphocytes (Manual) 16 L (24-44) % Monocytes (Manual) 2 (0.0-12.0) % Eosinophils (Manual) 5 H (0.00-3.0) % Differential Comment ABNORMAL Toxic Granulation 1+ Platelet Estimate NORMAL (NORMAL) ESR Pending INR 2.63 (0.8-3.0) Sodium 139 (136-145) mEq/L Potassium 4.0 (3.5-5.1) mEq/L Chloride 105 (98-107) mEq/L Carbon Dioxide 25.3 (21-32) mEq/L Anion Gap 12.3 (5-15) MEQ/L BUN 19 (9-20) mg/dL Creatinine 1.22 (0.55-1.30) mg/dl Estimated GFR > 60 ML/MIN Glucose 198 H (70-110) MG/DL Calcium 8.7 (8.5-10.1) mg/dL Total Bilirubin 0.40 (0.2-1.0) mg/dL AST 16 (15-37) U/L ALT 15 (12-78) U/L Alkaline Phosphatase 41 L (46-116) U/L Serum Total Protein 6.2 L (6.4-8.2) gm/dL Albumin 3.1 L (3.4-5.0) g/dL Assessment/Plan (1) Shortness of breath Current Visit: Yes Status: Acute Assessment & Plan: he presented with a diffuse rash nonblanching papular macular with some pustules sparing the face and involving the palms and left sole he had a cat scratch on the right foot that is more red and irritated and occurred prior to the rash. cover for cellulites due to cat scratch will changed yesterday from Rocephin to unasyn and no significant change will go to doxycycline po today to cover for any potential spirochete disease although feel it is less likely given his lack of systemic symptoms as well as cover for Bartonella from cat scratch but no lymphadenopathy for possible plan for home tomorrow RPR was negative The throat swelling is improving today and pain is improving and less short of breath. less swelling in extremities since iv fluids d/c with the lactic acidosis was improved less likely vasculitis with the normal esr and lack of improvement with the steroids ANCA testing and skin biopsy pending Possible drug reaction eosinophils are higher today: have d/c his glyburide, lisinopril and atenolol yesterday no significant change will d/c imdur today monitor for symptoms none of the medications were new he did get a new order of toujeo 6 days prior to this but he has been on toujeo in the past Continue titrate the insulin for uncontrolled diabetes chronically worse with the steroids he had no exposure to ticks, or uncooked seafood and no travel, it is not in the typical distribution for pityriasis rosea add nystatin for thrush Code(s): R06.02 - SHORTNESS OF BREATH (2) Throat swelling Current Visit: Yes Status: Acute Code(s): R22.1 - LOCALIZED SWELLING, MASS AND LUMP, NECK (3) Rash Current Visit: Yes Status: Acute Code(s): R21 - RASH AND OTHER NONSPECIFIC SKIN ERUPTION (4) Uncontrolled diabetes mellitus Current Visit: Yes Status: Acute Code(s): E11.65 - TYPE 2 DIABETES MELLITUS WITH HYPERGLYCEMIA (5) Pharyngitis Current Visit: Yes Status: Acute Code(s): J02.9 - ACUTE PHARYNGITIS, UNSPECIFIED (6) Cat scratch Current Visit: Yes Status: Acute Code(s): W55.03XA - SCRATCHED BY CAT, INITIAL ENCOUNTER (7) Cellulitis Current Visit: Yes Status: Acute Code(s): L03.90 - CELLULITIS, UNSPECIFIED
[2017-12-04 09:22] LABS: Erythrocyte Sedimentation Rate 5 mm/hr (0-15)
[2017-12-04] MEDS: Nystatin SUSPENSION 60 ML PO SCH ×4 (10:45→21:41)
[2017-12-04] MEDS: Vibramycin 100 MG PO SCH ×2 (10:46→21:42)
[2017-12-04] MEDS: NovoLOG Insulin SQ PRN ×2 (12:31→21:43)
[2017-12-04] MEDS: Protonix 40MG Tablet PO SCH (21:42)
[2017-12-04] MEDS: Coumadin 2.5 MG PO SCH (21:42)
[2017-12-04] MEDS: Lantus Insulin SQ SCH (21:43)
[2017-12-04] MEDS ORDERED: Augmentin 875-125 Tablet PO SCH (22:00)
[2017-12-05] MEDS: NovoLOG Insulin SQ SCH (08:14)
[2017-12-05] MEDS: BENADRYL 25 MG CAPSULE PO PRN (08:15)
[2017-12-05] MEDS: NovoLOG Insulin SQ PRN (08:15)
[2017-12-05] MEDS: Nystatin SUSPENSION 60 ML PO SCH (08:16)
[2017-12-05] MEDS: Vibramycin 100 MG PO SCH (08:16)
--- NOTE | 2017-12-05 08:22 | PCM.DS ---
Discharge Summary Date of Admission: 12/03/17 11:36 Admitting Physician: ESA GAMBINO Primary Care Provider: CONY BENSON Allergies Allergies morphine Adverse Reaction (Verified 12/01/17 10:42) Fainting Hospital Summary - Hospital Course Hospital Course: Pt is an 82 yo male pt of Dr. Simon who came to [facility] ER c/o 3d of diffuse, worsening rash. He did have a cat scratch preceeding the rash. Has not been overall ill, no fevers. Some slight cough and some sore throat. He was found to be mono, strep, and flu negative in ER. A biopsy was taken of one of the lesions on 12/02/17, and is pending in pathology. ESR was 5. RPR was neg. His renal function was decreased and lactate was elevated for his first two days of admission; these were normalized by day #3. He had some throat swelling and difficulty swallowing yesterday, which has resolved. He was on rocephin initially for the cat scratch, changed to unasyn briefly with no improvement. Pt now on doxycycline in the event he is suffering from zoonosis such as RMSF but with no fever or systemic illness this is less likely. Some of his medicines have been discontinued in the event of drug reaction (although he does not have any overtly new medicines). I did discuss his case with the [employer] REP from [facility], Lorraine Sunshine, and I sent her pictures of the rash ( all with his verbal permission). He is seeing dermatology today in office. This morning he notes the rash is "more solid" and darker. - Vitals & Intake/Output Vital Signs: Vital Signs Temperature 97.5 F 12/05/17 07:02 Pulse Rate 83 12/05/17 07:02 Respiratory Rate 22 12/05/17 07:02 Blood Pressure 125/67 12/05/17 07:02 O2 Sat by Pulse Oximetry 93 L 12/05/17 07:02 Intake & Output: Intake & Output 12/02/17 12/03/17 12/04/17 12/05/17 11:59 11:59 11:59 11:59 Intake Total 1370 1040 Output Total 2600 400 Balance -1230 640 - Lab Result Diagrams: 12/04/17 05:15 12/04/17 05:15 Lab Results-Last 24 Hrs: Accuchecks Date 12/04/17 Date 12/04/17 Date 12/04/17 Time 22:00 Time 16:30 Time 11:30 Accucheck Value: 273 Accucheck Value: 176 Accucheck Value: 233 Lab Results-Last 24 Hours 12/04/17 Range/Units 05:15 ESR 5 (0-15) mm/hr Micro Results-Entire Visit: Accuchecks Date 12/04/17 Date 12/04/17 Date 12/04/17 Time 22:00 Time 16:30 Time 11:30 Accucheck Value: 273 Accucheck Value: 176 Accucheck Value: 233 Discharge Exam General Appearance: no apparent distress, alert Neurologic Exam: alert, oriented x 3, cooperative Skin Exam: warm, dry, rash (diffuse erythematous papules with expanding bases, darker than previously noted, somewhat coalescent.) Ears, Nose, Throat Exam: pharynx normal, moist mucous membranes, No pharyngeal erythema, No tonsillar exudate Respiratory Exam: normal breath sounds, lungs clear, No crackles/rales, No rhonchi, No wheezing Cardiovascular Exam: regular rate/rhythm, normal heart sounds, No murmur Final Diagnosis/Problem List - Final Discharge Diagnosis/Problem (1) Rash Current Visit: Yes Status: Acute Assessment & Plan: Still unsure the etiology of this rash. Less likely vasculitis with ESR of 5. RPR negative. Strep negative. Less likely drug reaction with no new meds (but most of his meds currently being held). Less likely RMSF or similar with no systemic illness. Biopsy pending; pt asking this morning about non-Hodgekins lymphoma - I explained the blood tests look fine so far, but the biopsy would be helpful in differentiating some of these serious illnesses. To dermatology today. Hold the atenolol, fenofibrate, isosorbide, lisinopril, pravastatin, aspirin, omeprazole, amaryl, and niacin until seen by dermatology today. Please address these medicines with dermatology; after the appointment, I should hear from dermatology and we can decide together which medicines pt should continue. (2) Abrasion Current Visit: Yes Status: Acute Assessment & Plan: Home on doxycycline for cat scratch. (3) Uncontrolled diabetes mellitus Current Visit: Yes Status: Acute Assessment & Plan: Continue the insulin. Hold the amaryl until seen by dermatology. - Discharge Disposition: Home, Self-Care Condition: Stable Prescriptions: New Phenol/Sodium Phenolate [Chloraseptic [place] 180 ml] 0 ml PO PRN PRN bottle PRN Reason: Sore Throat Nystatin 60 ml [Nystatin SUSPENSION 60 ML] 5 ml PO QID #1 bottle Doxycycline Hyclate 100 mg [Vibramycin 100 MG] 100 mg PO BID #20 tab Continue Glimepiride 2 mg [Amaryl 2 MG] 1.5 tab PO BID Warfarin Sodium 2.5 mg [Coumadin 2.5 MG] 2.5 tab PO HS Pravastatin Sodium 40 mg PO HS Omeprazole 20 MG [Prilosec 20 mg] 20 mg PO HS Lisinopril 5 mg [Zestril 5 MG] 5 mg PO DAILY Isosorbide Mononitrate 30 mg [Imdur 30 MG] 30 mg PO DAILY Insulin Glargine,Hum.rec.anlog [Breana Triplett] 50 units HS Fenofibrate,Micronized [Fenofibrate] 134 mg PO HS Atenolol 25 mg PO DAILY Aspirin 81 gm Chew [Baby Aspirin 81 mg Chew] 81 mg PO HS Niacinamide [Niacin] 1,000 mg PO HS Follow up with: CONY BENSON [Primary Care Provider] -
[2017-12-05 11:22] VITALS: BP 140/74; PULSE 80; O2SAT 96
[2017-12-05 15:21] LABS: ANA Interpretation See Result Note:
== END 2017-12-05 11:30 | disposition home or self-care (01) | DRG 607 ==
LOC: ED 09:58 → UNDOADMOB 16:40 → OBSVTOIN 16:40 → MED SURG 16:40 → INTOOBSV 12-03 11:36 → OBSVTOIN 12-03 11:36 → UNDODISIN 12-05 11:30
PROVIDERS: ADMIT Family Medicine; ATTEND Family Medicine
DX: R21 Rash and other nonspecific skin eruption (principal); E11.9 Type 2 diabetes mellitus without complications; L03.115 Cellulitis of right lower limb; I10 Essential (primary) hypertension; E78.00 Pure hypercholesterolemia, unspecified; K21.9 Gastro-esophageal reflux disease without esophagitis; S90.511A Abrasion, right ankle, initial encounter; W55.03XA Scratched by cat, initial encounter; E11.65 Type 2 diabetes mellitus with hyperglycemia; Z79.4 Long term (current) use of insulin; I25.10 Atherosclerotic heart disease of native coronary artery without angina pectoris; R06.02 Shortness of breath; R22.1 Localized swelling, mass and lump, neck; J02.9 Acute pharyngitis, unspecified; Z79.01 Long term (current) use of anticoagulants; Z79.899 Other long term (current) drug therapy
CPT/HCPCS: 36000; 36415; 71046; 80048; 80053; 81002; 82962; 83036; 83605; 85025; 85610; 85652; 86038; 86140; 86255; 86256; 86308; 86592; 87070; 87430; 87631; 88305; 88312; 88341; 88342; 96360; 96365; 96372; 99285; G0378; J0295; J0696; J1100; J2920; J3301; A9270-GY

== ENCOUNTER 2018-05-02 17:12 | Observation (INO) | payer MEDICARE, SELFPAY ==
[2018-05-02] MEDS ORDERED: Zofran 4 MG/2 ML VIAL IV ONE (17:23)
[2018-05-02] MEDS ORDERED: Sodium Chloride 0.9% 1000 ML 1,000 ML IV STA (17:23)
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
[2018-05-02] MEDS ORDERED: Sodium Chloride 0.9% 1000 ML 1,000 ML ONE (17:44)
[2018-05-02] MEDS ORDERED: Zofran 4 MG/2 ML VIAL ONE (17:44)
[2018-05-02 18:21] LABS: Granulocyte Absolute (ANC) 7.55 (1.4-6.9); Hematocrit 49.5 % (42-50); Hemoglobin 16.6 gm/dl (12.5-18.0); Mean Cell Volume 88.9 fl (78-100); Mean Corpuscular Hemoglobin 29.8 pg (26-32); Mean Corpuscular Hgb Concent. 33.5 g/dl (32-36); Mean Platelet Volume 12.6 fl (6-9.5); Platelet Count 181 K/mm3 (150-450); Red Blood Count 5.57 M/mm3 (4.1-5.6); Red Cell Distribution Width 15.1 % (11.5-14.0); White Blood Count 9.5 K/mm3 (4.0-10.5)
[2018-05-02 18:34] LABS: Appearance CLEAR (CLEAR); Leukocyte Esterase NEGATIVE (NEGATIVE); Nitrite NEGATIVE (NEGATIVE); Protein,Urine Dip NEGATIVE (Negative); Specific Gravity 1.015 (1.005-1.025)
[2018-05-02 18:35] LABS: Bilirubin NEGATIVE (NEGATIVE); Blood NEGATIVE Ery/ul (0-5); Glucose 1000 mg/dL (NEGATIVE); Ketones NEGATIVE (NEGATIVE); Urobilinogen NORMAL mg/dL (0-1)
[2018-05-02 18:37] LABS: ALBUMIN 4.4 g/dL (3.5-5.0); ALKALINE PHOSPHATASE 85 U/L (38-126); ANION GAP 17.4 MEQ/L (5-15); BLOOD UREA NITROGEN 19 mg/dL (9-20); CHLORIDE 103 mmol/L (98-107); Calcium 9.9 mg/dL (8.4-10.2); Carbon Dioxide 23 mmol/L (22-30); Creatinine 1 0.79 mg/dL (0.66-1.25); Glucose 263 mg/dL (74-106); Potassium 4.7 mmol/L (3.5-5.1); SGOT/AST 23 U/L (17-59); SGPT/ALT 27 U/L (0-50); SODIUM 138 mmol/L (137-145); Total Protein 7.5 g/dL (6.3-8.2)
[2018-05-02 18:38] LABS: Amphetamine,Urine NEGATIVE (NEGATIVE); Barbiturate,Urine NEGATIVE (NEGATIVE); Benzodiazepine,Urine NEGATIVE (NEGATIVE); Cocaine,Urine NEGATIVE (NEGATIVE); Methadone,Urine NEGATIVE (NEGATIVE); Opiate,Urine NEGATIVE (NEGATIVE); PCP,Urine NEGATIVE (NEGATIVE); THC,Urine NEGATIVE (NEGATIVE)
[2018-05-02 18:42] LABS: ETHYL ALCOHOL < 10 mg/dL (0-10)
[2018-05-02 19:11] LABS: Lactic Acid 3.4 (0.4-2.0)
[2018-05-02 19:44] LABS: Eosinophil 1 % (0.00-3.0); Lymphocytes 14 % (24-44); Monocyte 5 % (0.0-12.0); Neutrophils 80 % (36.-66.); Total Cells Counted 100
[2018-05-02 19:47] LABS: Platelet Estimate DECREASED (NORMAL)
[2018-05-02 22:29] LABS: Lactic Acid 2.5 (0.4-2.0)
[2018-05-02] MEDS ORDERED: ROCEPHIN 1 Gm-D5w 50 ml Bag** 1 G/50 ML IVPB IV STA (22:57)
[2018-05-02] MEDS ORDERED: ROCEPHIN 1 Gm-D5w 50 ml Bag** 1 G/50 ML IVPB IV ONE (23:08)
[2018-05-02] MEDS: Sodium Chloride 0.9% 1000 ML 1,000 ML IV SCH (23:37)
[2018-05-03 02:59] LABS: Lactic Acid 2.8 (0.4-2.0)
[2018-05-03 05:52] LABS: Granulocyte Absolute (ANC) 6.06 (1.4-6.9); Hematocrit 39.2 % (42-50); Mean Cell Volume 89.9 fl (78-100); Mean Corpuscular Hemoglobin 29.8 pg (26-32); Mean Corpuscular Hgb Concent. 33.2 g/dl (32-36); Mean Platelet Volume 11.1 fl (6-9.5); Platelet Count 246 K/mm3 (150-450); Red Blood Count 4.36 M/mm3 (4.1-5.6); Red Cell Distribution Width 14.9 % (11.5-14.0); White Blood Count 9.4 K/mm3 (4.0-10.5)
[2018-05-03 06:06] LABS: BLOOD UREA NITROGEN 16 mg/dL (9-20); CHLORIDE 104 mmol/L (98-107); Calcium 8.9 mg/dL (8.4-10.2); Carbon Dioxide 23 mmol/L (22-30); Creatinine 1 0.76 mg/dL (0.66-1.25); Glucose 165 mg/dL (74-106); Potassium 3.9 mmol/L (3.5-5.1); SODIUM 136 mmol/L (137-145)
[2018-05-03 07:28] LABS: BAND 2 % (0.0-2.0); Lymphocytes 16 % (24-44); Monocyte 8 % (0.0-12.0); Neutrophils 74 % (36.-66.); Total Cells Counted 100
[2018-05-03 07:29] LABS: Platelet Estimate NORMAL (NORMAL)
[2018-05-03] MEDS ORDERED: Sodium Chloride 0.9% 10 ML FLUSH Syringe IV PRN (08:17)
--- NOTE | 2018-05-03 09:06 | XRAY ---
Indication: Dizziness. Multiple contiguous axial images obtained through the head without contrast. Comparison: None Age-appropriate global atrophy and minimal periventricular degenerative micro-ischemia bilaterally. No acute intracranial hemorrhage, abnormal extra-axial fluid collection, or mass effect. Fourth ventricle is midline without hydrocephalus. Bony calvarium intact. There is near complete opacification of the visualized left maxillary sinus. Mastoid air cells are clear. Impression: Nonacute senile brain. Incidental left maxillary sinus disease. CT DI 49.41
--- NOTE | 2018-05-03 09:10 | XRAY ---
Indication: Left upper quadrant pain. Multiple contiguous axial images obtained through the abdomen and pelvis using 80 cc Isovue 370 contrast. Comparison: None Lung bases demonstrates mild pulmonary emphysema and minimal bibasilar fibrosis/scarring. No infiltrate or effusion. Heart is not enlarged. Noncontrasted stomach and bowel loops appear nonobstructed. Normal appendix. No free fluid/air. Diffuse fatty liver with 1 cm right lobe cyst. Previous cholecystectomy. Enlarged prostate gland impresses on the base of the bladder. Remaining liver, pancreas, spleen, adrenal glands, kidneys, ureters, and bladder appear unremarkable. Moderate scattered aortoiliac calcifications with mild aortic ectasia. Small nonpathologic rectoperineal lymph nodes. Osseous structures intact with mild degenerative changes throughout the spine. Small fatty right inguinal hernia. Impression: 1. Fatty liver, hepatic cyst, enlarged prostate gland, and small fatty right inguinal hernia. 2. No acute intra-abdominal/pelvic abnormalities on this contrasted exam. CT DI 23.24
--- NOTE | 2018-05-03 09:12 | XRAY ---
Indication: Short of breath. Comparison: December 01, 2017. Portable chest remains hyperinflated with scattered fibrosis/scarring and tiny left apical calcified granuloma. Again no focal infiltrate, consolidation, or large effusion. Heart and mediastinal structures within normal limits. Bony thorax intact again with mild osteopenia and degenerative changes. Impression: Stable nonacute hyperinflated chest with chronic features.
[2018-05-03] MEDS: Amaryl 2 MG PO SCH ×2 (09:22→22:20)
[2018-05-03] MEDS: TENORMIN 50 MG PO SCH (09:23)
--- NOTE | 2018-05-03 09:51 | XRAY ---
Indication: Dizziness. Two-dimensional sonogram and color Doppler imaging of the carotid arteries of the neck performed. Comparison: None Examination of the right carotid circulation demonstrates very minimal calcified plaquing at the level of the bulb, origin external carotid artery, and proximal internal carotid artery. PSV of the CCA is 91 cm/s. PSV of the ICA is 79 cm/s. ICA/CCA ratio is 0.9. Normal antegrade vertebral artery flow. Examination of the left carotid circulation also demonstrates very minimal calcified plaquing at the level of the bulb and proximal internal/external carotid arteries. PSV of the CCA is 82 cm/s. PSV of the ICA is 74 cm/s. ICA/CCA ratio is 0.9. Normal antegrade vertebral artery flow. Incidental benign appearing bilateral cervical lymph nodes. Impression: Very minimal calcified plaquing bilaterally as detailed. Velocity measurements and ratios are negative for hemodynamically significant flow-limiting stenosis.
[2018-05-03] MEDS: Sodium Chloride 0.9% 1000 ML 1,000 ML IV SCH ×2 (10:55→20:22)
[2018-05-03] MEDS: Sodium Chloride 0.9% 10 ML FLUSH Syringe IV SCH ×2 (17:10→22:22)
[2018-05-03] MEDS ORDERED: INSULIN GLARGINE HUM REC ANLOG 60 UNIT SQ SCH (22:00)
[2018-05-03] MEDS ORDERED: Lantus Insulin SQ SCH (22:00)
[2018-05-03] MEDS ORDERED: Ecotrin 325 MG PO ONE (22:59)
[2018-05-04] MEDS: Sodium Chloride 0.9% 10 ML FLUSH Syringe IV SCH ×2 (05:25→12:44)
[2018-05-04] MEDS: Sodium Chloride 0.9% 1000 ML 1,000 ML IV SCH (05:58)
[2018-05-04] MEDS: Amaryl 2 MG PO SCH (09:11)
[2018-05-04] MEDS: TENORMIN 50 MG PO SCH (09:11)
--- NOTE | 2018-05-04 09:28 | SSS ---
DISCHARGE DIAGNOSES: 1) TRANSIENT ISCHEMIC ATTACK. 2) DEHYDRATION. HOSPITAL COURSE: The patient is an 82 year-old white male patient who presented to the emergency room after having an episode of weakness and discoordination of both upper extremities. He was apparently in the car when his episode occurred. He does not describe it as vertiginous in nature. The patient had fairly recently been discontinued off his Coumadin and aspirin. He had a rash. He was seen by his legal billing analyst who agreed to take him off of anticoagulant therapy as he has been on it for the past eight years. The patient is currently now on no anticoagulant medication. The patient was seen in the emergency room and admitted to the hospital for evaluation and management and neural checks. We did obtain a tele-neurology consultation. The patient did have carotid Doppler's which were essentially negative with good antegrade flow through the vertebral system. He was on telemetry and showed no arrhythmia issues during his stay. The patient is currently pending MRI and MRA of the brain to determine the blood flow issue there. He also fairly recently had echocardiogram. We will get the report on this from his legal billing analyst, Dr. Owusu. The patient otherwise has been ambulated by PT. He has been checked on his oxygen saturations, 91% on room air at rest. They will be checking during ambulation to see if he qualifies for home oxygen. Otherwise the patient is back to his baseline and ready to return home, this was discussed with his daughter and his and he appears to be back to his normal baseline status neurologically otherwise. He will be sent home on Plavix 75 mg daily and have follow up appointment in the office in one week. PHYSICAL EXAMINATION: Revealed a well nourished, well developed 82 year-old white male patient currently sitting up in bed eating breakfast. HEENT: Normocephalic, atraumatic. Pupils equal round reactive to light. Extraocular movements intact. Oropharynx is pink and moist. NECK: Supple without lymphadenopathy, thyromegaly or JVD. CHEST: Clear to auscultation with good air movement bilaterally. HEART: Regular rate and rhythm without significant murmurs, rubs or gallops. ABDOMEN: Soft, nontender, nondistended without hepatosplenomegaly or masses. EXTREMITIES: Without clubbing, cyanosis or edema. NEUROLOGIC: Currently the patient is alert and oriented x3, moving all four extremities well. LAB DATA AND TESTS: His telemetry tracing has shown him to be in sinus rhythm. There is some T-wave inversion however noted. His CBC was normal. His PLT count was noted to be 246,000. He did have elevation of his lactic acid initially but was 2.0 by his admission after just fluid hydration. His metabolic panel showed glucose 165, BUN 16, creatinine 0.76. Electrolytes were normal. Liver enzymes were normal as well. He had a troponin less than 0.012. Again, the patient is felt to be ready for discharge home with addition of Plavix. He will follow up in the office in one week.
[2018-05-04] MEDS ORDERED: PLAVIX 75 MG Tablet PO SCH (10:00)
--- NOTE | 2018-05-04 11:31 | XRAY ---
Indication: Confusion and problems ambulating. Possible TIA. Multi slab 3-D [id number] MRA [place] was performed. Comparison: None Distal internal carotid arteries are bilaterally symmetric without critical stenosis, obstruction, or AV malformation. Normal carotid terminus with normal branching A1 and M1 segments bilaterally. More distal anterior and middle cerebral arteries including anterior communicating artery normal in MRA appearance. Normal left posterior communicating artery. Right posterior communicating artery not seen presumed hypoplastic. Examination of the posterior circulation demonstrates distal left vertebral artery slightly larger in caliber. Normal MRA appearance to the basilar artery with normal branching superior cerebellar, anterior-inferior cerebellar, and posterior cerebral arteries bilaterally. Incidental near complete opacification of the left maxillary sinus. Impression: 1. Negative MRA [place]. 2. Incidental left maxillary sinus disease.
--- NOTE | 2018-05-04 12:14 | XRAY ---
Indication: Confusion and problems ambulating. Possible TIA. Sagittal, coronal, and axial MRI brain was performed using pre-and post T1, T2, FLAIR, diffusion, and ADC sequences. 15 cc Magnevist contrast used. Comparison: None There is age-appropriate global atrophy and minimal bilateral periventricular degenerative micro-ischemia signal. Diffusion images demonstrates a few petechial subcortical restricted signal in the left posterior parietal and both occipital lobes favoring acute micro-ischemia. No acute intracranial hemorrhage, abnormal extra-axial fluid collection, or mass effect. Postcontrast images are negative for abnormal enhancing intra-or extra-axial mass. Fourth ventricle is midline without hydrocephalus. 7/8 cranial nerve complex bilaterally symmetric. Normal flow-void signal within the major intracerebral circulation. Normal appearing craniocervical junction and sella turcica. There is complete opacification of the left maxillary sinus. Impression: 1. Petechial acute micro-ischemia in both occipital and left posterior parietal lobes. No acute hemorrhage/mass effect. 2. Normal aging brain as evidence by atrophy and degenerative micro-ischemia. 3. Negative contrast exam. 4. Incidental left maxillary sinus disease.
[2018-05-04 12:37] VITALS: BP 164/76; PULSE 70; O2SAT 92
--- NOTE | 2018-05-04 16:02 | PCM.DCORD ---
- Discharge Discharge Date: 05/04/18 Disposition: Home, Self-Care Condition: Stable Prescriptions: New Clopidogrel Bisulfate 75 mg [PLAVIX 75 MG Tablet] 75 mg PO DAILY 30 Days #30 tablet NS Continue Glimepiride 2 mg [Amaryl 2 MG] 2 mg PO BID Insulin Glargine,Hum.rec.anlog [Breana Triplett] 60 units SQ HS Atenolol 25 mg PO DAILY Instructions: Transient Ischemic Attack, Oxygen Therapy, Adult (DC), Clopidogrel, Going Home on Blood Thinners Additional Instructions: Pt requires O2 24 x 7 @ 2l NC Follow up with: MEGHA COLLIER [CONSULTING PHYSICIAN] - 05/12/18 2:30 pm KIRAN ADAM [Primary Care Provider] - 05/09/18 10:30 am Forms: Discharge Instructions, Patient Portal Information
== END 2018-05-04 17:30 | disposition home or self-care (01) ==
LOC: ED 17:12 → MED SURG 05-03 00:38
PROVIDERS: ADMIT Internal Medicine; ATTEND Family Medicine
DX: G45.9 Transient cerebral ischemic attack, unspecified (principal); E86.0 Dehydration; Z86.718 Personal history of other venous thrombosis and embolism; R42 Dizziness and giddiness; Z79.01 Long term (current) use of anticoagulants
CPT/HCPCS: 36415; 70450; 70553; 71045; 74177; 80048; 80053; 80307; 81002; 83605; 83690; 84484; 85025; 87040; 93005; 93041; 93268; 93880; 94760; 96360; 96365; 96374; 97161; 99285; G0378; 70544; J0696; J2405; A9270-GY; G0480

== ENCOUNTER 2018-10-07 08:58 | Emergency (ER) | payer MEDICARE ==
[2018-10-07] MEDS ORDERED: Sodium Chloride 0.9% 1000 ML 1,000 ML IV STA (09:18)
[2018-10-07] MEDS ORDERED: Zofran 4 MG/2 ML VIAL IV ONE (09:18)
--- NOTE | 2018-10-07 09:18 | ERPHSYRPT ---
- History of Present Illness Time Seen by Provider: 10/07/18 09:05 Historian: patient, family Exam Limitations: no limitations Patient Subjective Stated Complaint: INCREASED WEAKNESS OVER THE PAST WEEK. DENIES ANY PAIN. ALSO HAVING DECREASED APPETITE FOR ONE WEEK. Triage Nursing Assessment: TO ROOM PER EMS COT. SKIN W/D, COLOR PALE, RESP NONLABORED. MUCOUS MEMBRANES DRY. C/O THIRST. Physician History: 82 y/o white male presents with one week h/o flu like sx including n/v earlier in this week. generalized aches and weakness. denies abd pain, cp, and soa. pt was seen at pcp Tuesday and told he has the flu and given rx for omeprazole for his gas. Timing/Duration: week(s) (1) Activities at Onset: none Quality: other (weakness) Abdominal Pain Onset Location: generalized abdomen (mild) Pain Radiation: no radiation Severity of Pain-Max: none Severity of Pain-Current: none Associated Symptoms: loss of appetite, nausea, vomiting, weakness Allergies/Adverse Reactions: morphine Adverse Reaction (Verified 10/07/18 09:06) Fainting Home Medications: Atenolol 25 mg PO DAILY 12/01/17 [History] Glimepiride 2 mg [Amaryl 2 MG] 2 mg PO BID 12/01/17 [History] Insulin Glargine,Hum.rec.anlog [Breana Triplett] 60 units SQ HS 12/01/17 [ History] Magnesium Oxide 400 mg PO BID 10/07/18 [History] Omeprazole 20 mg PO HS 10/07/18 [History] Hx Tetanus, Diphtheria Vaccination/Date Given: No Hx Influenza Vaccination/Date Given: Yes Hx Pneumococcal Vaccination/Date Given: Yes - Review of Systems Constitutional: Weakness Eyes: No Symptoms Ears, Nose, & Throat: No Symptoms Respiratory: No Symptoms Cardiac: No Symptoms Abdominal/Gastrointestinal: Nausea, Vomiting, Appetite Changes Genitourinary Symptoms: No Symptoms Musculoskeletal: No Symptoms Skin: No Symptoms Neurological: No Symptoms Psychological: No Symptoms Endocrine: No Symptoms Hematologic/Lymphatic: No Symptoms Immunological/Allergic: No Symptoms All Other Systems: Reviewed and Negative - Past Medical History Pertinent Past Medical History: Yes Neurological History: No Pertinent History ENT History: No Pertinent History Cardiac History: Coronary Artery Disease Respiratory History: No Pertinent History Endocrine Medical History: Diabetes Type II Musculoskeletal History: No Pertinent History GI Medical History: Gallbladder Disease History: No Pertinent History Psycho-Social History: No Pertinent History Male Reproductive Disorders: No Pertinent History - Past Surgical History Past Surgical History: Yes (gallbladder, 2 stents) Neuro Surgical History: No Pertinent History Cardiac: Cardiac Stent Respiratory: No Pertinent History Gastrointestinal: Cholecystectomy Genitourinary: No Pertinent History Musculoskeletal: No Pertinent History Male Surgical History: No Pertinent History - Social History Smoking Status: Former smoker Exposure to second hand smoke: No Drug Use: none Patient Lives Alone: No - Nursing Vital Signs Nursing Vital Signs: Initial Vital Signs Temperature 98.1 F 10/07/18 09:00 Pulse Rate 92 H 10/07/18 09:00 Respiratory Rate 16 10/07/18 09:00 Blood Pressure 143/74 10/07/18 09:00 O2 Sat by Pulse Oximetry 94 L 10/07/18 09:00 Pain Scale Pain Intensity 0 - Physical Exam General Appearance: mild distress, alert Eye Exam: PERRL/EOMI Ears, Nose, Throat Exam: dry mucous membranes Neck Exam: normal inspection, non-tender, supple, full range of motion Respiratory Exam: normal breath sounds, lungs clear, airway intact, No chest tenderness, No respiratory distress, No accessory muscle use, No rhonchi, No wheezing, No stridor Gastrointestinal/Abdomen Exam: soft, normal bowel sounds, No tenderness, No guarding, No rebound Rectal Exam: deferred Back Exam: normal inspection, normal range of motion, No CVA tenderness, No vertebral tenderness Extremity Exam: normal inspection, normal range of motion, pelvis stable Neurologic Exam: alert, oriented x 3, cooperative, psychology tech II-XII nml as tested Skin Exam: normal color, warm, dry Lymphatic Exam: No adenopathy SpO2 Interpretation: normal SpO2: 94 - Course Nursing assessment & vital signs reviewed: Yes EKG Interpreted by Me: RATE ([id number]), Sinus Rhythm, NORMAL AXIS, NORMAL INTERVALS, NORMAL QRS, Other (no change from ekg dated 05/02/18) Ordered Tests: Active Orders 24 hr Category Date Time Status Clean Catch Urine Specimen STAT Care 10/07/18 09:18 Active EKG-ER Only STAT Care 10/07/18 09:20 Active IV Insertion STAT Care 10/07/18 09:18 Active Regular Diet Diet 10/07/18 Dinner Active AMYLASE Stat Lab 10/07/18 09:30 Completed CBC W DIFF Stat Lab 10/07/18 09:30 Completed CMP Stat Lab 10/07/18 09:30 Completed CULTURE,URINE Stat Lab 10/07/18 09:45 Received LIPASE Stat Lab 10/07/18 09:30 Completed Manual Differential NC Stat Lab 10/07/18 09:30 Completed TROPONIN Q3H Lab 10/07/18 09:30 Completed TROPONIN Q3H Lab 10/07/18 12:30 Ordered TROPONIN Q3H Lab 10/07/18 15:30 Ordered TROPONIN Q3H Lab 10/07/18 18:30 Ordered TROPONIN Q3H Lab 10/07/18 21:30 Ordered UA W/RFX UR CULTURE Stat Lab 10/07/18 09:45 Completed Medication Summary Generic Name Dose Route Start Last Admin Trade Name Freq PRN Reason Stop Dose Admin Dextrose/Sodium Chloride 1,000 mls @ 100 mls/hr 10/07/18 11:00 10/07/18 11:10 Dextrose 5%-Ns Iv Solution 1000 Ml IV 11/06/18 10:59 100 mls/hr .Q10H SHELLY Administration Discontinued Medications Generic Name Dose Route Start Last Admin Trade Name Freq PRN Reason Stop Dose Admin Dextrose Confirm 10/07/18 10:20 D50w 50 Ml Abboject Administered 10/07/18 10:21 Dose 50 ml IV .STK-MED ONE Dextrose 50 ml 10/07/18 10:27 10/07/18 10:30 D50w 50 Ml Abboject IV 10/07/18 10:28 50 ml STAT ONE Administration Sodium Chloride 1,000 mls @ 999 mls/hr 10/07/18 09:18 10/07/18 10:32 Sodium Chloride 0.9% 1000 Ml IV 10/07/18 10:18 Infused .Q1H1M STA Infusion Sodium Chloride Confirm 10/07/18 09:31 Sodium Chloride 0.9% 1000 Ml Administered 10/07/18 09:32 Dose 1,000 mls @ ud .ROUTE .STK-MED ONE Ondansetron HCl 4 mg 10/07/18 09:18 10/07/18 09:27 Zofran 4 Mg/2 Ml Vial IV 10/07/18 09:19 4 mg STAT ONE Administration Ondansetron HCl Confirm 10/07/18 09:26 Zofran 4 Mg/2 Ml Vial Administered 10/07/18 09:27 Dose 4 mg .ROUTE .STK-MED ONE Lab/Rad Data: Laboratory Result Diagrams 10/07/18 09:30 10/07/18 09:30 Laboratory Results 10/07/18 10/07/18 10/07/18 Range/Units 09:45 09:30 09:30 WBC (4.0-10.5) K/mm3 RBC (4.1-5.6) M/mm3 Hgb (12.5-18.0) gm/dl Hct (42-50) % MCV (78-100) fl MCH (26-32) pg MCHC (32-36) g/dl RDW (11.5-14.0) % Plt Count (150-450) K/mm3 MPV (6-9.5) fl Segmented Neutrophils (36.-66.) % Band Neutrophils (0.0-2.0) % Lymphocytes (Manual) (24-44) % Monocytes (Manual) (0.0-12.0) % Eosinophils (Manual) (0.00-3.0) % Toxic Granulation Platelet Estimate (NORMAL) RBC Morphology Sodium (137-145) mmol/L Potassium (3.5-5.1) mmol/L Chloride (98-107) mmol/L Carbon Dioxide (22-30) mmol/L Anion Gap (5-15) MEQ/L BUN (9-20) mg/dL Creatinine (0.66-1.25) mg/dL Estimated GFR ML/MIN Glucose (74-106) mg/dL Calcium (8.4-10.2) mg/dL Total Bilirubin (0.2-1.3) mg/dL AST (17-59) U/L ALT (0-50) U/L Alkaline Phosphatase (38-126) U/L Troponin I < 0.012 (0.000-0.034) ng/mL Serum Total Protein (6.3-8.2) g/dL Albumin (3.5-5.0) g/dL Amylase (30-110) U/L Lipase (23-300) U/L Urine Color DARK YELLOW (YELLOW) Urine Appearance CLEAR (CLEAR) Urine pH 5.0 (5-6) Ur Specific [place] 1.023 (1.005-1.025) Urine Protein NEGATIVE (Negative) Urine Ketones NEGATIVE (NEGATIVE) Urine Blood NEGATIVE (0-5) García/ul Urine Nitrite NEGATIVE (NEGATIVE) Urine Bilirubin NEGATIVE (NEGATIVE) Urine Urobilinogen 4 (0-1) mg/dL Ur Leukocyte Esterase NEGATIVE (NEGATIVE) Urine WBC (Auto) 3-5 (0-5) /HPF Urine RBC (Auto) 3-5 (0-2) /HPF U Epithel Cells (Auto) RARE (FEW) /HPF Urine Bacteria (Auto) MODERATE (NEGATIVE) /HPF Urine Mucus (Auto) SLIGHT (NEGATIVE) /HPF Urine Culture Reflexed YES (NO) Urine Glucose NEGATIVE (NEGATIVE) mg/dL Influenza Type A Ag NEGATIVE (NEGATIVE) Influenza Type B Ag NEGATIVE (NEGATIVE) RSV (PCR) NEGATIVE (Negative) 10/07/18 10/07/18 Range/Units 09:30 09:30 WBC 6.1 (4.0-10.5) K/mm3 RBC 4.38 (4.1-5.6) M/mm3 Hgb 12.4 L (12.5-18.0) gm/dl Hct 38.7 L (42-50) % MCV 88.4 (78-100) fl MCH 28.3 (26-32) pg MCHC 32.0 (32-36) g/dl RDW 14.5 H (11.5-14.0) % Plt Count 330 (150-450) K/mm3 MPV 9.9 H (6-9.5) fl Segmented Neutrophils 76 H (36.-66.) % Band Neutrophils 5 H (0.0-2.0) % Lymphocytes (Manual) 16 L (24-44) % Monocytes (Manual) 2 (0.0-12.0) % Eosinophils (Manual) 1 (0.00-3.0) % Toxic Granulation 1+ Platelet Estimate NORMAL (NORMAL) RBC Morphology ABNORMAL Sodium 137 (137-145) mmol/L Potassium 4.0 (3.5-5.1) mmol/L Chloride 105 (98-107) mmol/L Carbon Dioxide 26 (22-30) mmol/L Anion Gap 9.7 (5-15) MEQ/L BUN 16 (9-20) mg/dL Creatinine 0.91 (0.66-1.25) mg/dL Estimated GFR > 60.0 ML/MIN Glucose 43 L* (74-106) mg/dL Calcium 8.2 L (8.4-10.2) mg/dL Total Bilirubin 0.90 (0.2-1.3) mg/dL AST 67 H (17-59) U/L ALT 46 (0-50) U/L Alkaline Phosphatase 92 (38-126) U/L Troponin I (0.000-0.034) ng/mL Serum Total Protein 8.0 (6.3-8.2) g/dL Albumin 3.3 L (3.5-5.0) g/dL Amylase 57 (30-110) U/L Lipase 123 (23-300) U/L Urine Color (YELLOW) Urine Appearance (CLEAR) Urine pH (5-6) Ur Specific [place] (1.005-1.025) Urine Protein (Negative) Urine Ketones (NEGATIVE) Urine Blood (0-5) García/ul Urine Nitrite (NEGATIVE) Urine Bilirubin (NEGATIVE) Urine Urobilinogen (0-1) mg/dL Ur Leukocyte Esterase (NEGATIVE) Urine WBC (Auto) (0-5) /HPF Urine RBC (Auto) (0-2) /HPF U Epithel Cells (Auto) (FEW) /HPF Urine Bacteria (Auto) (NEGATIVE) /HPF Urine Mucus (Auto) (NEGATIVE) /HPF Urine Culture Reflexed (NO) Urine Glucose (NEGATIVE) mg/dL Influenza Type A Ag (NEGATIVE) Influenza Type B Ag (NEGATIVE) RSV (PCR) (Negative) - Progress Progress: improved, re-examined Progress Note: 10/07/18 11:57 pt states he is feeling much better and wants to go home Counseled pt/family regarding: lab results, diagnosis, need for follow-up - Departure Time of Disposition: 11:57 Departure Disposition: Home Clinical Impression: Hypoglycemia, Dehydration Condition: Stable Critical Care Time: No Referrals: KIRAN ADAM [Primary Care Provider] - Additional Instructions: eat your diabetic diet. drink plenty of fluids. hold your diabetic medication until you are eating, drinking well. check your blood sugar before you take any of your diabetic medications.
[2018-10-07] MEDS ORDERED: Zofran 4 MG/2 ML VIAL ONE (09:26)
[2018-10-07] MEDS ORDERED: Sodium Chloride 0.9% 1000 ML 1,000 ML ONE (09:31)
[2018-10-07 09:55] LABS: Hematocrit 38.7 % (42-50); Hemoglobin 12.4 gm/dl (12.5-18.0); Mean Cell Volume 88.4 fl (78-100); Mean Corpuscular Hemoglobin 28.3 pg (26-32); Mean Platelet Volume 9.9 fl (6-9.5); Platelet Count 330 K/mm3 (150-450); Red Blood Count 4.38 M/mm3 (4.1-5.6); Red Cell Distribution Width 14.5 % (11.5-14.0); White Blood Count 6.1 K/mm3 (4.0-10.5)
[2018-10-07 10:01] LABS: Appearance CLEAR (CLEAR); Bilirubin NEGATIVE (NEGATIVE); Blood NEGATIVE Ery/ul (0-5); Glucose NEGATIVE (NEGATIVE); Ketones NEGATIVE (NEGATIVE); Leukocyte Esterase NEGATIVE (NEGATIVE); Nitrite NEGATIVE (NEGATIVE); Protein,Urine Dip NEGATIVE (Negative); Specific Gravity 1.023 (1.005-1.025); Urobilinogen 4 mg/dL (0-1)
[2018-10-07 10:12] LABS: ALBUMIN 3.3 g/dL (3.5-5.0); ALKALINE PHOSPHATASE 92 U/L (38-126); AMYLASE 57 U/L (30-110); ANION GAP 9.7 MEQ/L (5-15); BLOOD UREA NITROGEN 16 mg/dL (9-20); CHLORIDE 105 mmol/L (98-107); Calcium 8.2 mg/dL (8.4-10.2); Carbon Dioxide 26 mmol/L (22-30); Creatinine 1 0.91 mg/dL (0.66-1.25); LIPASE 123 U/L (23-300); SGOT/AST 67 U/L (17-59); SGPT/ALT 46 U/L (0-50); SODIUM 137 mmol/L (137-145)
[2018-10-07 10:13] LABS: INFLUENZA A NEGATIVE (NEGATIVE); INFLUENZA B NEGATIVE (NEGATIVE); RESPIRATORY SYNCTIAL VIRUS NEGATIVE (Negative)
[2018-10-07 10:18] LABS: BAND 5 % (0.0-2.0); Eosinophil 1 % (0.00-3.0); Lymphocytes 16 % (24-44); Monocyte 2 % (0.0-12.0); Neutrophils 76 % (36.-66.); Platelet Estimate NORMAL (NORMAL); Total Cells Counted 100; Toxic Granulation 1+
[2018-10-07 10:20] LABS: Glucose 43 mg/dL (74-106)
[2018-10-07] MEDS ORDERED: D50W 50 ml Abboject IV ONE ×2 (10:20→10:27)
[2018-10-07] MEDS ORDERED: Dextrose 5%-NS IV Solution 1000 ML 1,000 ML IV SCH (11:00)
[2018-10-07] MEDS ORDERED: Dextrose 5%-NS IV Solution 1000 ML 1,000 ML IV ONE (11:08)
[2018-10-07 12:52] VITALS: BP 111/54
[2018-10-07 12:58] VITALS: PULSE 76; O2SAT 95
== END 2018-10-07 13:00 | disposition home or self-care (01) ==
LOC: ED 08:58
DX: E11.649 Type 2 diabetes mellitus with hypoglycemia without coma (principal); E86.0 Dehydration; R53.1 Weakness; Z79.899 Other long term (current) drug therapy; Z79.4 Long term (current) use of insulin
CPT/HCPCS: 36000; 36415; 80053; 81001; 82150; 82962; 83690; 84484; 85025; 87077; 87086; 87186; 87631; 93005; 96360; 96374; 96375; 99284; J2405

== ENCOUNTER 2018-10-20 05:59 | Day surgery (SDC) | payer MEDICARE ==
[2018-10-20] MEDS ORDERED: DIPRIVAN 200 MG/20 ML IV ONE (06:00)
[2018-10-20] MEDS ORDERED: Lactated Ringers 1,000 ML IV ONE ×2 (06:13→06:49)
[2018-10-20] MEDS ORDERED: Lactated Ringers 1,000 ML IV SCH (06:30)
--- NOTE | 2018-10-20 08:59 | OP ---
SURGERY DATE/TIME: 10/20/2018821 PREOPERATIVE DIAGNOSIS: A 12 pound weight loss and nausea after meals. POSTOPERATIVE DIAGNOSIS: Diabetic gastroparesis. PROCEDURE: Esophagogastroduodenoscopy. SURGEON: Dr. Lyons. ANESTHESIA: Medications were given by the anesthesia department. BRIEF HISTORY: The patient is an 82 year old white male patient who has been taking aspirin and Plavix for heart issues. He reports he has been having problems over the past couple of months with nausea after each meal and he has been losing weight. The patient was felt to need to have endoscopic evaluation. He was appraised of the risks of the procedure including the risk of perforation, phlebitis, untoward reaction to medication, bleeding and missed lesions. The patient verbalized his understanding and desired to have the procedure performed. DESCRIPTION OF PROCEDURE: The patient was given the medications by the anesthesia department. He had continuous pulse oximetry, ECG monitoring, intermittent blood pressure monitoring and tidal CO2 monitoring during the examination. He was placed in the left lateral decubitus position. A bite block was placed and the flexible Olympus gastroscope was used to intubate the oropharynx. A view of the larynx was obtained and was normal. The scope was easily introduced in the esophagus which appeared to be normal throughout its length. The stomach was entered where we noted large amounts of retained gastric food products. The scope was passed along the stomach into the pylorus. We were able to intubate the pylorus and inspect duodenum which appeared to be normal. The scope was withdrawn towards the stomach. A retroflex view was obtained of the lesser curvature, fundus and cardia regions of the stomach and these appeared normal otherwise. The scope was removed from the patient who tolerated the procedure well and was sent back to outpatient recovery in good condition.
[2018-10-20 09:36] VITALS: BP 125/64; PULSE 89; O2SAT 100
== END 2018-10-20 09:46 | disposition home or self-care (01) ==
LOC: SDC 05:59
PROVIDERS: ATTEND Family Medicine
DX: R63.4 Abnormal weight loss (principal); Z68.1 Body mass index [BMI] 19.9 or less, adult; E11.43 Type 2 diabetes mellitus with diabetic autonomic (poly)neuropathy; K31.84 Gastroparesis
CPT/HCPCS: 82962; 99100; J2704

== ENCOUNTER 2019-08-19 18:08 | Emergency (ER) | payer MEDICARE, SELFPAY ==
[2019-08-19] MEDS ORDERED: Sodium Chloride 0.9% 1000 ML 1,000 ML IV STA (18:11)
--- NOTE | 2019-08-19 18:33 | ERPHSYRPT ---
- History of Present Illness Time Seen by Provider: 08/19/19 18:15 Source: EMS Exam Limitations: clinical condition Patient Subjective Stated Complaint: pt arrived per ambulance for possible stroke, the told ems that pt all of sudden threw her walker,sat down and then was confused with slurred speech. Triage Nursing Assessment: pt confused to person place and time, with some slurred speech. pt follows some commands, he keeps repating the same thing.resp easy,skin w/d/p. mo edema noted Physician History: Patient developed sudden confusion and slurred speech prior to coming into the emergency department. Speech is clear currently but patient does not answer questions Timing/Duration: today (15 minutes prior to coming into the emergency department ) Severity: mild Character of Deficits: impaired speech Deficits: no difficulties Baseline/Normal Cognition: alert oriented x 3 Current Cognition: alert but confused, alert/disoriented to time Baseline Gait: walks w/o assistance Associated Symptoms: confusion, No fatigue, No fever, No chills, No loss of consciousness, No nausea, No vomiting, No weakness, No insomnia, No muscle spasms, No numbness/tingling in legs/feet, No paresthesia, No ringing in ears, No seizures, No slurred speech, No trouble walking, No vision changes, No chest pain, No headache Allergies/Adverse Reactions: morphine Adverse Reaction (Verified 08/19/19 18:22) Fainting Home Medications: Glimepiride 2 mg [Amaryl 2 MG] 1.5 mg PO BID 12/01/17 [History] Omeprazole 20 mg PO HS 10/07/18 [History] Atorvastatin Calcium [Lipitor] 40 mg PO HS 10/19/18 [History] Ondansetron HCl 4 mg PO Q4HPRN PRN 10/20/18 [History] Metformin HCl 500 mg BID 08/19/19 [History] Hx Tetanus, Diphtheria Vaccination/Date Given: No Hx Influenza Vaccination/Date Given: No Hx Pneumococcal Vaccination/Date Given: No Immunizations Up to Date: No - Review of Systems Constitutional: No Fever, No Chills Eyes: No Eye Pain, No Vision Changes Ears, Nose, & Throat: No Mouth Swelling, No Painful Swallowing, No Stridor Respiratory: No Cough, No Dyspnea Cardiac: No Chest Pain, No Palpitations Abdominal/Gastrointestinal: No Abdominal Pain, No Nausea, No Vomiting Genitourinary Symptoms: No Hematuria, No Flank Pain Musculoskeletal: No Back Pain, No Neck Pain Neurological: No Dizziness, No Focal Weakness, No Headache, No Parasthesia, No Tremors Psychological: No Anxiety Endocrine: No Excessive Sweating Hematologic/Lymphatic: No Easy Bleeding, No Easy Bruising All Other Systems: Reviewed and Negative - Past Medical History Pertinent Past Medical History: Yes Neurological History: No Pertinent History ENT History: No Pertinent History Cardiac History: Coronary Artery Disease, High Cholesterol Respiratory History: No Pertinent History Endocrine Medical History: Diabetes Type II Musculoskeletal History: No Pertinent History GI Medical History: Gallbladder Disease History: No Pertinent History Psycho-Social History: No Pertinent History Male Reproductive Disorders: No Pertinent History - Past Surgical History Past Surgical History: Yes (gallbladder, 2 stents) Neuro Surgical History: No Pertinent History Cardiac: Cardiac Catheterization, Cardiac Stent Respiratory: No Pertinent History Gastrointestinal: Cholecystectomy Genitourinary: No Pertinent History Musculoskeletal: No Pertinent History Male Surgical History: No Pertinent History Other Surgical History: enlarged lymph node removed from L neck(benign per pt) - Social History Smoking Status: Former smoker Exposure to second hand smoke: No Drug Use: none Patient Lives Alone: No - Nursing Vital Signs Nursing Vital Signs: Initial Vital Signs O2 Sat by Pulse Oximetry 98 08/19/19 18:31 - An Coma Scale Best Eye Response (An): (4) open spontaneously Best Verbal Response (An): (4) confused conversation Best Motor Response (An): (6) obeys commands (some not all) [place] Total: 14 - Physical Exam General Appearance: no apparent distress, alert Eye Exam: bilateral eye: normal inspection, PERRL, EOMI Ears, Nose, Throat Exam: normal ENT inspection, TMs normal, pharynx normal, moist mucous membranes Neck Exam: normal inspection, non-tender, supple, full range of motion, No meningismus, No Brudzinski, No lymphadenopathy Respiratory: normal breath sounds, lungs clear, airway intact, No chest tenderness, No respiratory distress Cardiovascular: regular rate/rhythm, normal heart sounds, normal peripheral pulses, capillary refill <2 sec Gastrointestinal: soft, normal bowel sounds, No tenderness, No mass Back Exam: normal inspection, normal range of motion, No CVA tenderness, No vertebral tenderness, No rash Extremity Exam: normal inspection, normal range of motion, pelvis stable, No calf tenderness, No danielle's sign, No inflammation, No pedal edema, No swelling Peripheral Pulses: dorsalis-pedis (R): 2+, dorsalis-pedis (L): 2+ Mental Status: alert, uncooperative, disoriented to person, disoriented to place , disoriented to time, No agitated highway engineer Exam: normal hearing, normal speech, PERRL, No abnormal gag reflex, No facial asymmetry, No facial droop, No gaze palsy, No tongue deviation to R, No tongue deviation to L Coordination/Gait: normal finger to nose Motor/Sensory: no motor deficit, no sensory deficit, No weak motor strength RUE , No weak motor strength LUE, No weak motor strength RLE, No weak motor strength LLE Skin Exam: normal color, warm, dry, No rash, No petechiae SpO2 Interpretation: normal O2 Delivery: Room Air - Course Nursing assessment & vital signs reviewed: Yes EKG Interpreted by Me: RATE (81), Sinus Rhythm, NORMAL AXIS, NORMAL INTERVALS, NORMAL QRS, NORMAL ST-T, Other (no appreciable change in comparison to EKG from 10/07/2018) - CT Exams Head CT Interpretation: Tele-radiologist Report, Other (radiologist's interpretation : 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 Severe chronic left maxillae sinusitis with central calcifications. Unremarkable bbones with no acute fracture. Sinuses show no fluid levels and are unremarkable. Visualized mastoid air cells are well aerated. Soft tissues are unremarkable. Passenger' s show severe calcified intracranial atherosclerotic vessel disease. Overall impression: No acute intracranial findings.) Ordered Tests: Active Orders 24 hr Category Date Time Status Accucheck STAT Care 08/19/19 18:11 Active Environmental Health Nurse STAT Care 08/19/19 18:12 Active EKG-ER Only STAT Care 08/19/19 18:11 Active IV Insertion STAT Care 08/19/19 18:11 Active NPO (ED) STAT Care 08/19/19 18:11 Active Pulse Oximetry (ED) STAT Care 08/19/19 18:11 Active CHEST 1 VIEW (PORTABLE) Stat Exams 08/19/19 18:11 Taken HEAD WITHOUT CONTRAST [CT] Stat Exams 08/19/19 18:09 Taken AMYLASE Stat Lab 08/19/19 18:12 Completed ARTERIAL BLOOD GASES Stat Lab 08/19/19 18:38 Completed BLOOD CULTURE Stat Lab 08/19/19 18:37 Received CBC W DIFF Stat Lab 08/19/19 18:37 Completed CK-Creatinine Phosphokinase Stat Lab 08/19/19 18:37 Completed CMP Stat Lab 08/19/19 18:37 Completed CULTURE,URINE Stat Lab 08/19/19 18:11 Uncollected ETHYL ALCOHOL Stat Lab 08/19/19 18:37 Completed LIPASE Stat Lab 08/19/19 18:12 Completed Lactic Acid Stat Lab 08/19/19 18:38 Results MAGNESIUM Stat Lab 08/19/19 18:12 Completed NT PRO BNP Stat Lab 08/19/19 18:37 Completed PROTIME WITH INR Stat Lab 08/19/19 18:37 Completed PTT Stat Lab 08/19/19 18:37 Completed TROPONIN Q3H Lab 08/19/19 18:37 Completed TROPONIN Q3H Lab 08/19/19 21:15 Ordered TROPONIN Q3H Lab 08/20/19 00:15 Ordered TROPONIN Q3H Lab 08/20/19 03:15 Ordered TROPONIN Q3H Lab 08/20/19 06:15 Ordered Urine Triage Profile Stat Lab 08/19/19 18:13 Uncollected Medication Summary Generic Name Dose Route Start Last Admin Trade Name Freq PRN Reason Stop Dose Admin Magnesium Sulfate/Dextrose 100 mls @ 100 mls/hr 08/19/19 19:30 Magnesium 1 Gm / 100 Ml D5w IV 08/19/19 21:29 Q1H SHELLY Discontinued Medications Generic Name Dose Route Start Last Admin Trade Name Freq PRN Reason Stop Dose Admin Alteplase, Recombinant 8 mg 08/19/19 19:15 Activase 100 Mg IV 08/19/19 19:16 STAT STA Sodium Chloride 1,000 mls @ 999 mls/hr 08/19/19 18:11 08/19/19 18:44 Sodium Chloride 0.9% 1000 Ml IV 08/19/19 19:11 999 mls/hr .Q1H1M STA Administration Sodium Chloride Confirm 08/19/19 18:43 Sodium Chloride 0.9% 1000 Ml Administered 08/19/19 18:44 Dose 1,000 mls @ ud .ROUTE .STK-MED ONE Lab/Rad Data: Laboratory Result Diagrams 08/19/19 18:37 08/19/19 18:37 Laboratory Results 08/19/19 08/19/19 08/19/19 Range/Units 18:38 18:38 18:37 WBC (4.0-10.5) K/mm3 RBC (4.1-5.6) M/mm3 Hgb (12.5-18.0) gm/dl Hct (42-50) % MCV (78-100) fl MCH (26-32) pg MCHC (32-36) g/dl RDW (11.5-14.0) % Plt Count (150-450) K/mm3 MPV (6-9.5) fl Gran % (36.0-66.0) % Eos # (Auto) (0-0.5) Absolute Lymphs (auto) (1.0-4.6) Absolute Monos (auto) (0.0-1.3) Lymphocytes % (24.0-44.0) % Monocytes % (0.0-12.0) % Eosinophils % (0.00-5.0) % Basophils % (0.0-0.4) % Absolute Granulocytes (1.4-6.9) Basophils # (0-0.4) PT (8.83-12.87) SECONDS INR (0.8-3.0) APTT (24.1-36.1) SECONDS Puncture Site RIGHT BRACHIAL pCO2 26 L (35-45) mmHg pO2 82 (75-100) mmHg Base Excess -1.5 (-2.0-2.0) O2 Saturation 93.9 L (94-100) g/dF ABG pH 7.50 H (7.35-7.45) ABG HCO3 20.3 L (22-28) ABG O2 Sat (Measured) 97.0 (95-100) % Justin Test NOT APPLICABLE A-a Gradient 35 a/A Ratio 0.70 Hemoglobin 13.0 Carboxyhemoglobin 2.1 (0.0-6.9) % THgb Methemoglobin 1.2 L (1.4-1.5) % Temperature 37.0 C POC O2 Flow Rate 21 % Sodium (137-145) mmol/L Potassium 4.0 (3.5-5.1) mmol/L Chloride (98-107) mmol/L Carbon Dioxide (22-30) mmol/L Anion Gap (5-15) MEQ/L BUN (9-20) mg/dL Creatinine (0.66-1.25) mg/dL Estimated GFR ML/MIN Glucose (74-106) mg/dL Lactic Acid 3.7 H (0.4-2.0) Calcium (8.4-10.2) mg/dL Magnesium (1.6-2.3) mg/dL Total Bilirubin (0.2-1.3) mg/dL AST (17-59) U/L ALT (0-50) U/L Alkaline Phosphatase (38-126) U/L Creatine Kinase (55-170) U/L Troponin I < 0.012 (0.000-0.034) ng/mL NT-Pro-B Natriuret Pep (0-1800) pg/mL Serum Total Protein (6.3-8.2) g/dL Albumin (3.5-5.0) g/dL Amylase (30-110) U/L Lipase (23-300) U/L Ethyl Alcohol (0-10) mg/dL 08/19/19 08/19/19 08/19/19 Range/Units 18:37 18:37 18:37 WBC (4.0-10.5) K/mm3 RBC (4.1-5.6) M/mm3 Hgb (12.5-18.0) gm/dl Hct (42-50) % MCV (78-100) fl MCH (26-32) pg MCHC (32-36) g/dl RDW (11.5-14.0) % Plt Count (150-450) K/mm3 MPV (6-9.5) fl Gran % (36.0-66.0) % Eos # (Auto) (0-0.5) Absolute Lymphs (auto) (1.0-4.6) Absolute Monos (auto) (0.0-1.3) Lymphocytes % (24.0-44.0) % Monocytes % (0.0-12.0) % Eosinophils % (0.00-5.0) % Basophils % (0.0-0.4) % Absolute Granulocytes (1.4-6.9) Basophils # (0-0.4) PT 11.8 (8.83-12.87) SECONDS INR 1.04 (0.8-3.0) APTT 28.7 (24.1-36.1) SECONDS Puncture Site pCO2 (35-45) mmHg pO2 (75-100) mmHg Base Excess (-2.0-2.0) O2 Saturation (94-100) g/dF ABG pH (7.35-7.45) ABG HCO3 (22-28) ABG O2 Sat (Measured) (95-100) % Justin Test A-a Gradient a/A Ratio Hemoglobin Carboxyhemoglobin (0.0-6.9) % THgb Methemoglobin (1.4-1.5) % Temperature C POC O2 Flow Rate % Sodium 141 (137-145) mmol/L Potassium 4.2 (3.5-5.1) mmol/L Chloride 107 (98-107) mmol/L Carbon Dioxide 20 L (22-30) mmol/L Anion Gap 17.0 H (5-15) MEQ/L BUN 15 (9-20) mg/dL Creatinine 0.63 L (0.66-1.25) mg/dL Estimated GFR > 60.0 ML/MIN Glucose 240 H (74-106) mg/dL Lactic Acid (0.4-2.0) Calcium 8.9 (8.4-10.2) mg/dL Magnesium (1.6-2.3) mg/dL Total Bilirubin 0.40 (0.2-1.3) mg/dL AST 15 L (17-59) U/L ALT 17 (0-50) U/L Alkaline Phosphatase 86 (38-126) U/L Creatine Kinase < 20 L (55-170) U/L Troponin I (0.000-0.034) ng/mL NT-Pro-B Natriuret Pep 397 (0-1800) pg/mL Serum Total Protein 6.8 (6.3-8.2) g/dL Albumin 3.7 (3.5-5.0) g/dL Amylase (30-110) U/L Lipase (23-300) U/L Ethyl Alcohol < 10 (0-10) mg/dL 08/19/19 08/19/19 Range/Units 18:37 18:12 WBC 7.6 (4.0-10.5) K/mm3 RBC 4.18 (4.1-5.6) M/mm3 Hgb 12.7 (12.5-18.0) gm/dl Hct 37.4 L (42-50) % MCV 89.5 (78-100) fl MCH 30.4 (26-32) pg MCHC 34.0 (32-36) g/dl RDW 14.2 H (11.5-14.0) % Plt Count 294 (150-450) K/mm3 MPV 11.2 H (6-9.5) fl Gran % 70.9 H (36.0-66.0) % Eos # (Auto) 0.12 (0-0.5) Absolute Lymphs (auto) 1.40 (1.0-4.6) Absolute Monos (auto) 0.64 (0.0-1.3) Lymphocytes % 18.3 L (24.0-44.0) % Monocytes % 8.4 (0.0-12.0) % Eosinophils % 1.6 (0.00-5.0) % Basophils % 0.8 (0.0-0.4) % Absolute Granulocytes 5.42 (1.4-6.9) Basophils # 0.06 (0-0.4) PT (8.83-12.87) SECONDS INR (0.8-3.0) APTT (24.1-36.1) SECONDS Puncture Site pCO2 (35-45) mmHg pO2 (75-100) mmHg Base Excess (-2.0-2.0) O2 Saturation (94-100) g/dF ABG pH (7.35-7.45) ABG HCO3 (22-28) ABG O2 Sat (Measured) (95-100) % Justin Test A-a Gradient a/A Ratio Hemoglobin Carboxyhemoglobin (0.0-6.9) % THgb Methemoglobin (1.4-1.5) % Temperature C POC O2 Flow Rate % Sodium (137-145) mmol/L Potassium (3.5-5.1) mmol/L Chloride (98-107) mmol/L Carbon Dioxide (22-30) mmol/L Anion Gap (5-15) MEQ/L BUN (9-20) mg/dL Creatinine (0.66-1.25) mg/dL Estimated GFR ML/MIN Glucose (74-106) mg/dL Lactic Acid (0.4-2.0) Calcium (8.4-10.2) mg/dL Magnesium 1.1 L (1.6-2.3) mg/dL Total Bilirubin (0.2-1.3) mg/dL AST (17-59) U/L ALT (0-50) U/L Alkaline Phosphatase (38-126) U/L Creatine Kinase (55-170) U/L Troponin I (0.000-0.034) ng/mL NT-Pro-B Natriuret Pep (0-1800) pg/mL Serum Total Protein (6.3-8.2) g/dL Albumin (3.5-5.0) g/dL Amylase 44 (30-110) U/L Lipase 101 (23-300) U/L Ethyl Alcohol (0-10) mg/dL - Progress Progress: unchanged Progress Note: 08/19/19 18:35 Patient's speech is understandable, but he does not follow commands still or answers questions appropriately. 08/19/19 18:48 Tele-Neurology has been consulted Patient appears to be a possible TIA and not a candidate for alteplase, but we will wait for Neurology consultation and opinion 08/19/19 19:25 Patient was discussed with Dr Michael Pineda, Hospitalist at [facility] in [place], [place]. Dr Pineda accepted the patient to the ICU at [facility]. Discussed with Dr.: Other (@ 19:05, Dr Mindy Flores, Neurologist from [facility]iology states patient is a candidate for alteplase and to start with 10% percent bolus over one minute, then 90% percent over 60 minutes) Will see patient in: hospital (full admit) Counseled pt/family regarding: lab results, diagnosis, need for follow-up, rad results - Departure Departure Disposition: Transfer ([facility] ICU in [place], [place]) Clinical Impression: Hypomagnesemia, Elevated lactic acid level CVA (cerebral vascular accident) Qualifiers: CVA mechanism: thrombosis Precerebral and cerebral artery: unspecified cerebral artery Qualified Code(s): 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
[2019-08-19] MEDS ORDERED: Sodium Chloride 0.9% 1000 ML 1,000 ML ONE (18:43)
[2019-08-19 18:44] LABS: Lactic Acid 3.7 (0.4-2.0)
[2019-08-19 18:45] LABS: Absolute Neutrophil Ct (ANC) 5.42 (1.4-6.9); BASOPHIL % 0.8 % (0.0-0.4); Basophil (Absolute #) 0.06 (0-0.4); Eosinophil % 1.6 % (0.00-5.0); Eosinophil (Absolute #) 0.12 (0-0.5); Hematocrit 37.4 % (42-50); Hemoglobin 12.7 gm/dl (12.5-18.0); Lymphocytes % 18.3 % (24.0-44.0); Mean Cell Volume 89.5 fl (78-100); Mean Corpuscular Hemoglobin 30.4 pg (26-32); Mean Platelet Volume 11.2 fl (6-9.5); Monocyte (Absolute #) 0.64 (0.0-1.3); Monocytes % 8.4 % (0.0-12.0); Neutrophil % 70.9 % (36.0-66.0); Platelet Count 294 K/mm3 (150-450); Red Blood Count 4.18 M/mm3 (4.1-5.6); Red Cell Distribution Width 14.2 % (11.5-14.0); White Blood Count 7.6 K/mm3 (4.0-10.5)
[2019-08-19 18:48] LABS: A-aADO2 35; ABG SITE RIGHT BRACHIAL; ARTERIAL BLOOD GAS BASE EXCESS -1.5 (-2.0-2.0); ARTERIAL BLOOD GAS FIO2 21 %; ARTERIAL BLOOD GAS PCO2 26 mmHg (35-45); ARTERIAL BLOOD GAS PO2 82 mmHg (75-100); CARBOXYHEMOGLOBIN 2.1 % THgb (0.0-6.9); HCO3- 20.3 (22-28); HGB O2 SAT 93.9 g/dF (94-100); Methhemoglobin 1.2 % (1.4-1.5)
[2019-08-19 18:53] LABS: INR 1.04 (0.8-3.0); PROTIME 11.8 SECONDS (8.83-12.87)
[2019-08-19 18:55] LABS: PTT 28.7 SECONDS (24.1-36.1)
[2019-08-19 19:00] LABS: MAGNESIUM 1.1 mg/dL (1.6-2.3)
[2019-08-19 19:01] LABS: ALBUMIN 3.7 g/dL (3.5-5.0); ALKALINE PHOSPHATASE 86 U/L (38-126); BLOOD UREA NITROGEN 15 mg/dL (9-20); CHLORIDE 107 mmol/L (98-107); Calcium 8.9 mg/dL (8.4-10.2); Carbon Dioxide 20 mmol/L (22-30); Creatinine 1 0.63 mg/dL (0.66-1.25); Glucose 240 mg/dL (74-106); Potassium 4.2 mmol/L (3.5-5.1); SGOT/AST 15 U/L (17-59); SGPT/ALT 17 U/L (0-50); SODIUM 141 mmol/L (137-145); Total Protein 6.8 g/dL (6.3-8.2)
[2019-08-19 19:08] LABS: NT PRO BNP 397 pg/mL (0-1800)
[2019-08-19 19:15] LABS: CK-Creatinine Phosphokinase < 20 U/L (55-170); ETHYL ALCOHOL < 10 mg/dL (0-10)
[2019-08-19] MEDS ORDERED: Activase 100 MG IV STA (19:15)
[2019-08-19] MEDS ORDERED: Magnesium 1 Gm / 100 Ml D5W*** 200 ML IV ONE (20:23)
[2019-08-19] MEDS: Magnesium 1 Gm / 100 Ml D5W*** 100 ML IV SCH ×2 (20:24→20:55)
[2019-08-19 22:06] VITALS: BP 168/89; PULSE 82; O2SAT 94
--- NOTE | 2019-08-20 08:47 | XRAY ---
Indication: Confusion. Comparison: May 02, 2018. Portable chest less inflated with new bibasilar infiltrates versus atelectasis. Remaining heart and lungs unremarkable again with scattered fibrosis/scarring and left apical calcified granuloma. Bony thorax intact again with mild osteopenia and degenerative changes.
--- NOTE | 2019-08-20 08:59 | XRAY ---
Indication: Confusion. Multiple contiguous axial images obtained through the head without contrast. Comparison: May 02, 2018. Right mid parietal lobe demonstrates new small focus of remote appearing infarct. Stable age-appropriate global atrophy and mild periventricular degenerative micro-ischemia. No acute intracranial hemorrhage, hydrocephalus, or mass effect. Fourth ventricle is midline. Bony calvarium intact. Again complete opacification of the left maxillary sinus. Mastoid air cells are clear. Impression: 1. No acute intracranial abnormalities. 2. Old right parietal lobe infarct. 3. Normal aging brain including atrophy and degenerative micro-ischemia. 4. Incidental left maxillary sinus disease. Comment: Preliminary interpretation was made by [facility]. No critical discrepancy. CT DI 62.11
== END 2019-08-19 20:50 | disposition short-term general hospital (02) ==
LOC: ED 18:08
DX: I63.30 Cerebral infarction due to thrombosis of unspecified cerebral artery (principal); E83.42 Hypomagnesemia; R74.0 Nonspecific elevation of levels of transaminase and lactic acid dehydrogenase [LDH]; E11.65 Type 2 diabetes mellitus with hyperglycemia
CPT/HCPCS: 36000; 36415; 36600; 70450; 71045; 80053; 82150; 82375; 82550; 82803; 82962; 83605; 83690; 83735; 83880; 84484; 85025; 85610; 85730; 87040; 90791; 93005; 93041; 94760; 96360; 96365; 96374; 99285; 99291; G0480; Q3014; 80307; 96366; J2997; J3475

== ENCOUNTER 2020-03-06 09:45 | Emergency (ER) | payer MEDICARE, SELFPAY ==
--- NOTE | 2020-03-06 10:16 | ERPHSYRPT ---
- History of Present Illness Time Seen by Provider: 03/06/20 10:05 Source: patient Exam Limitations: no limitations Patient Subjective Stated Complaint: Pt states that he fell on his left shoulder in November or December and the pain has gotten too much for him today Triage Nursing Assessment: Pt was brought to the ER by his daughter, he walked into the ER with a cane, pt states that his arm hurts and it "catches" when he moves it a certain way, hypertensive, rates pain 4/10, pulses normal, no noticable swelling or deformaties, denies pain with palpatation Physician History: This is an 84-year-old white gentleman who back in November or December 2019 fell onto his left elbow. Relatively soon after, patient was seen by Dr. Lyons his primary care physician. No x-rays were obtained at that time. Patient states that the pain is more of an ache that is intermittent over the last 2 to 3 months. It is worse in the morning and then improves with time throughout the day and evening. The the impact of the fall was primarily on the left elbow. Patient states he does not have pain in the left elbow any longer. It is isolated in the left shoulder. She denies chest pain and he denies shortness of breath. Occurred: other (2 to 3 months ago) Reason for Fall: tripped Injuries/Pain Location: upper extremity (Left shoulder) Loss of Consciousness: no loss of consciousness Quality: aching Severity of Pain-Max: moderate (The mornings usually) Severity of Pain-Current: mild Modifying Factors: Improves With: other (There is an underlying ache intermittently. In the morning the ache is worse and then lightens up as the day presses on. Movement slightly was the pain as the day goes on) Associated Symptoms (Fall): denies symptoms Allergies/Adverse Reactions: morphine Adverse Reaction (Verified 03/06/20 09:58) Fainting Home Medications: Omeprazole 20 mg PO HS 10/07/18 [History] Atorvastatin Calcium [Lipitor] 20 mg PO HS 10/19/18 [History] Aspirin EC 81 mg [Ecotrin 81 mg] 81 mg PO DAILY 03/06/20 [History] Fluoxetine HCl 10 mg PO DAILY 03/06/20 [History] Insulin Detemir [Levemir] 20 unit SQ BID 03/06/20 [History] Hx Tetanus, Diphtheria Vaccination/Date Given: No Hx Influenza Vaccination/Date Given: No Hx Pneumococcal Vaccination/Date Given: No Travel Risk - International Travel Have you traveled outside of the country in past 3 weeks: No Have you or anyone close to you been diagnosed with or: No Do your reside in a community with a known COVID-19 case?: Yes If Yes where:: [place] - Coronavirus Screening Has patient experienced Coronavirus symptoms: No - Review of Systems Constitutional: No Symptoms Eyes: No Symptoms Ears, Nose, & Throat: No Symptoms Respiratory: No Symptoms Cardiac: No Symptoms Abdominal/Gastrointestinal: No Symptoms Genitourinary Symptoms: No Symptoms Musculoskeletal: Injury, Joint Pain (Shoulder) Skin: No Symptoms Neurological: No Symptoms Psychological: No Symptoms Endocrine: No Symptoms Hematologic/Lymphatic: No Symptoms Immunological/Allergic: No Symptoms All Other Systems: Reviewed and Negative - Past Medical History Pertinent Past Medical History: Yes Neurological History: No Pertinent History ENT History: No Pertinent History Cardiac History: Coronary Artery Disease, High Cholesterol Respiratory History: No Pertinent History Endocrine Medical History: Diabetes Type II Musculoskeletal History: No Pertinent History GI Medical History: Gallbladder Disease History: No Pertinent History Psycho-Social History: No Pertinent History Male Reproductive Disorders: No Pertinent History - Past Surgical History Past Surgical History: Yes (gallbladder, 2 stents) Neuro Surgical History: No Pertinent History Cardiac: Cardiac Catheterization, Cardiac Stent Respiratory: No Pertinent History Gastrointestinal: Cholecystectomy Genitourinary: No Pertinent History Musculoskeletal: No Pertinent History Male Surgical History: No Pertinent History Other Surgical History: enlarged lymph node removed from L neck(benign per pt) - Social History Smoking Status: Former smoker Exposure to second hand smoke: No Drug Use: none Patient Lives Alone: No - Nursing Vital Signs Nursing Vital Signs: Initial Vital Signs Temperature 97.5 F 03/06/20 09:50 Pulse Rate 78 03/06/20 09:50 Blood Pressure 163/90 03/06/20 09:50 O2 Sat by Pulse Oximetry 96 03/06/20 09:50 Pain Scale Pain Intensity 0 - An Coma Score Best Eye Response (An): (4) open spontaneously Best Verbal Response ([place]): (5) oriented Best Motor Response (An): (6) obeys commands [place] Total: 15 - Physical Exam General Appearance: no apparent distress, alert, anxiety Head Injury: no evidence of injury Eye Exam: PERRL/EOMI, eyes nml inspection ENT Exam: airway nml, nml ext.inspection Neck Exam: supple, trachea midline, full range of motion, normal alignment, normal inspection Respiratory/Chest Exam: normal breath sounds, No chest tenderness, No respiratory distress Cardiovascular Exam: normal heart sounds, regular rate/rhythm Gastrointestinal Exam: No tenderness Rectal Exam: not done Back Exam: normal inspection, normal range of motion, No CVA tenderness, No vertebral tenderness Extremity Exam: normal inspection, normal range of motion, pelvis stable Neurologic Exam: alert, oriented x 3, cooperative, getterer II-XII nml as tested, normal mood/affect, nml cerebellar function, nml station & gait Skin Exam: normal color, warm, dry SpO2 Interpretation: normal SpO2: 96 O2 Delivery: Room Air Ordered Tests: Active Orders 24 hr Category Date Time Status HUMERUS Stat Exams 03/06/20 10:16 Taken SHOULDER Stat Exams 03/06/20 10:16 Taken - Progress Progress: unchanged Progress Note: 03/06/20 11:12 X-ray of the left shoulder reveals no acute fracture or dislocation. chronic changes are present. X-ray of the left humerus reveals no evidence of any acute fracture or dislocation. Counseled pt/family regarding: diagnosis, need for follow-up, rad results - Departure Departure Disposition: Home Clinical Impression: Left shoulder pain, Degenerative joint disease of left shoulder Condition: Stable Critical Care Time: No Referrals: KIRAN LYONS [Primary Care Provider] - Additional Instructions: Call Dr. Lyons's office later today to arrange an appointment for reevaluation of your left shoulder pain. Take your medication as prescribed. Monitor your blood sugar closely while taking the steroids. Prescriptions: Prednisone 10 mg [Deltasone 10 mg] 10 mg PO TID #12 tablet
--- NOTE | 2020-03-06 11:17 | XRAY ---
Exam: Left humerus films from 03/06/2020. Comparison: None. Indication: 84-year-old male fell and complains of left shoulder and left humerus pain. Findings: 2 AP internal rotation views and 2 AP external rotation views of the left humerus were obtained. I see no acute fracture or other significant focal bone lesion involving the left humerus. Some mild degenerative changes are again seen involving the left shoulder joint and acromioclavicular joint. Impression: 1. No acute fracture of the left humerus is seen.
--- NOTE | 2020-03-06 11:20 | XRAY ---
Exam: 3 view left shoulder series from 03/06/2020 Comparison: 3 view left shoulder series from 03/04/2008. Indication: 84-year-old male fell and complains of left shoulder and left humerus pain. Findings: AP internal rotation, AP external rotation, and a shallow Y view of the left shoulder reveal no acute fracture or dislocation. There is mild apparent narrowing at the superior aspect of the glenohumeral joint with minor marginal glenoid spurring indicating degenerative change. I also note mild elevation of the left humeral head with respect to the glenoid of the left scapula suggesting an element of mild chronic rotator cuff disease. There are a couple subtle punctate calcifications adjacent to the lateral cortical margin of the left humeral head on the AP internal rotation view which may reflect hydroxyapatite deposition disease, or chronic calcific tendinitis. There is mild narrowing of the left acromioclavicular joint with some mild spurring arising from the inferior margin of the lateral end of the left clavicle. No bone destruction is seen. A calcified granuloma is seen in the lateral left lung apex. Minimal pleural-parenchymal scarring is noted at the lateral left lung apex and superior margin of the left lung apex. These findings are stable compared to 2007. Impression: 1. No acute fracture or dislocation of the left shoulder is seen. 2. There are mild degenerative changes of the left glenohumeral joint and acromioclavicular joint, as discussed above. This is similar to the prior study. 3. I suspect mild chronic rotator cuff disease of the left shoulder. 4. 2 subtle punctate calcifications are seen adjacent to the lateral humeral head cortex on the AP internal rotation view, likely representing hydroxyapatite deposition disease, or chronic calcific tendinitis.
[2020-03-06 11:38] VITALS: BP 172/96; PULSE 78; O2SAT 98
== END 2020-03-06 11:37 | disposition home or self-care (01) ==
LOC: ED 09:45
DX: M25.512 Pain in left shoulder (principal); M19.012 Primary osteoarthritis, left shoulder; W19.XXXS Unspecified fall, sequela; Z79.899 Other long term (current) drug therapy
CPT/HCPCS: 73030; 73060; 99283

== ENCOUNTER 2020-05-03 07:13 | Emergency (ER) | payer MEDICARE ==
[2020-05-03] MEDS ORDERED: Zofran 4 MG/2 ML VIAL IV ONE (07:44)
[2020-05-03] MEDS ORDERED: TYLENOL 325 MG PO STA (07:45)
[2020-05-03] MEDS ORDERED: TYLENOL EXTRA STRENGTH 500 MG ONE (07:46)
[2020-05-03] MEDS ORDERED: TYLENOL 325 MG ONE (07:48)
[2020-05-03] MEDS ORDERED: Zofran 4 MG/2 ML VIAL ONE (07:48)
--- NOTE | 2020-05-03 07:51 | ERPHSYRPT ---
- History of Present Illness Time Seen by Provider: 05/03/20 07:39 Historian: patient, family Exam Limitations: no limitations Patient Subjective Stated Complaint: Flank pain Triage Nursing Assessment: Patient ambulated back to ED with cane with slow and steady gait. Patient transferred self to bed per self. Patient A+O X3. Patient's skin pink, warm and dry. Patient complains of left sided flank pain since . Patient states the pain is intermittent, sharp pain when moving. Abdomen soft and round with BS X 4. Patient states he hasn't had a BM for 3 days. Patient denies N/V. Patient states he has increased frequency and urgency upon urination. Physician History: 84 years old male with history of coronary artery disease status post stenting, diabetes mellitus, stroke with left-sided weakness presented in the ER with chief complaint of left flank and left lower back pain for the last 3 days with progressive worsening. Patient reports history of multiple falls in the past but denies any fall 3 days ago. Reports sharp pain in the left lower back, not in the midline, moderate intensity, better with resting and taking Tylenol, aggravated with activity/ambulation, not associated with any numbness tingling or weakness of lower extremities. Denies any loss of bowel or bladder control. Denies any abdominal pain nausea or vomiting. Last bowel movement was 3 days ago. Patient reports mild relief of pain with urination. Timing/Duration: day(s) (3) Activities at Onset: rest Quality: sharpness Abdominal Pain Onset Location: flank Severity of Pain-Max: moderate Severity of Pain-Current: mild Modifying Factors: Improves With: lying down, movement, rest Associated Symptoms: back Previous symptoms: no prior history Allergies/Adverse Reactions: morphine Adverse Reaction (Verified 05/03/20 07:21) Fainting Home Medications: Omeprazole 20 mg PO BID 10/07/18 [History] Atorvastatin Calcium [Lipitor] 20 mg PO HS 10/19/18 [History] Aspirin EC 81 mg [Ecotrin 81 mg] 81 mg PO DAILY 03/06/20 [History] Fluoxetine HCl 10 mg PO DAILY 03/06/20 [History] Insulin Detemir [Levemir] 20 unit SQ BID 03/06/20 [History] Canagliflozin [Invokana] 1 tab PO DAILY 05/03/20 [History] Hx Tetanus, Diphtheria Vaccination/Date Given: No Hx Influenza Vaccination/Date Given: Yes Hx Pneumococcal Vaccination/Date Given: Yes Immunizations Up to Date: Yes Travel Risk - International Travel Have you traveled outside of the country in past 3 weeks: No - Coronavirus Screening Close contact with a COVID-19 positive Pt in past 14-21 Days: No - Review of Systems Constitutional: No Symptoms Eyes: No Symptoms Ears, Nose, & Throat: No Symptoms Respiratory: No Symptoms Cardiac: No Symptoms Abdominal/Gastrointestinal: Abdominal Pain Genitourinary Symptoms: Flank Pain Musculoskeletal: Back Pain Skin: No Symptoms Neurological: Paralysis Psychological: No Symptoms Endocrine: No Symptoms Hematologic/Lymphatic: No Symptoms Immunological/Allergic: No Symptoms - Past Medical History Pertinent Past Medical History: Yes Neurological History: No Pertinent History ENT History: No Pertinent History Cardiac History: Coronary Artery Disease, High Cholesterol Respiratory History: No Pertinent History Endocrine Medical History: Diabetes Type II Musculoskeletal History: No Pertinent History GI Medical History: Gallbladder Disease History: No Pertinent History Psycho-Social History: No Pertinent History Male Reproductive Disorders: No Pertinent History - Past Surgical History Past Surgical History: Yes (gallbladder, 2 stents) Neuro Surgical History: Other Cardiac: Cardiac Catheterization, Cardiac Stent Respiratory: No Pertinent History Gastrointestinal: Cholecystectomy Genitourinary: No Pertinent History Musculoskeletal: No Pertinent History Male Surgical History: No Pertinent History Other Surgical History: enlarged lymph node removed from L neck(benign per pt), 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 - Social History Smoking Status: Former smoker Exposure to second hand smoke: No Drug Use: none Patient Lives Alone: No - Nursing Vital Signs Nursing Vital Signs: Initial Vital Signs Temperature 97.6 F 05/03/20 07:22 Pulse Rate 80 05/03/20 07:22 Respiratory Rate 18 05/03/20 07:22 Blood Pressure 159/87 05/03/20 07:22 O2 Sat by Pulse Oximetry 93 L 05/03/20 07:22 Pain Scale Pain Intensity 5 - Physical Exam General Appearance: no apparent distress Eye Exam: PERRL/EOMI Ears, Nose, Throat Exam: normal ENT inspection, pharynx normal Neck Exam: normal inspection, supple, full range of motion Respiratory Exam: normal breath sounds, lungs clear Cardiovascular Exam: regular rate/rhythm, normal heart sounds Gastrointestinal/Abdomen Exam: soft, normal bowel sounds, No tenderness, No guarding Back Exam: normal inspection, muscle spasm, point tenderness (left SI joint area ), No normal range of motion, No CVA tenderness, No vertebral tenderness Extremity Exam: paralysis (left UE), limited range of motion Neurologic Exam: alert, oriented x 3, cooperative Skin Exam: normal color Lymphatic Exam: adenopathy SpO2 Interpretation: normal SpO2: 93 O2 Delivery: Room Air - Course Nursing assessment & vital signs reviewed: Yes Ordered Tests: Active Orders 24 hr Category Date Time Status IV Insertion STAT Care 05/03/20 07:44 Active ABDOMEN AND PELVIS W/0 CONTRAS [CT] Stat Exams 05/03/20 07:44 Taken CBC W DIFF Stat Lab 05/03/20 07:58 Completed CMP Stat Lab 05/03/20 07:58 Completed LIPASE Stat Lab 05/03/20 07:58 Completed UA W/RFX UR CULTURE Stat Lab 05/03/20 07:58 Completed Medication Summary Discontinued Medications Generic Name Dose Route Start Last Admin Trade Name Freq PRN Reason Stop Dose Admin Acetaminophen 975 mg 05/03/20 07:45 05/03/20 07:50 Tylenol 325 Mg PO 05/03/20 07:46 975 mg STAT STA Administration Acetaminophen Confirm 05/03/20 07:46 Tylenol Extra Strength 500 Mg Administered 05/03/20 07:47 Dose 500 mg .ROUTE .STK-MED ONE Acetaminophen Confirm 05/03/20 07:48 Tylenol 325 Mg Administered 05/03/20 07:49 Dose 975 mg .ROUTE .STK-MED ONE Ondansetron HCl 4 mg 05/03/20 07:44 05/03/20 07:50 Zofran 4 Mg/2 Ml Vial IV 05/03/20 07:45 4 mg STAT ONE Administration Ondansetron HCl Confirm 05/03/20 07:48 Zofran 4 Mg/2 Ml Vial Administered 05/03/20 07:49 Dose 4 mg .ROUTE .STK-MED ONE Lab/Rad Data: Laboratory Result Diagrams 05/03/20 07:58 05/03/20 07:58 Laboratory Results 05/03/20 05/03/20 05/03/20 Range/Units 07:58 07:58 07:58 WBC 7.8 (4.0-10.5) K/mm3 RBC 5.01 (4.1-5.6) M/mm3 Hgb 14.7 (12.5-18.0) gm/dl Hct 46.0 (42-50) % MCV 91.8 (78-100) fl MCH 29.3 (26-32) pg MCHC 32.0 (32-36) g/dl RDW 14.7 H (11.5-14.0) % Plt Count 289 (150-450) K/mm3 MPV 11.2 H (7.5-11.0) fl Gran % 68.2 H (36.0-66.0) % Eos # (Auto) 0.11 (0-0.5) Absolute Lymphs (auto) 1.50 (1.0-4.6) Absolute Monos (auto) 0.82 (0.0-1.3) Lymphocytes % 19.1 L (24.0-44.0) % Monocytes % 10.5 (0.0-12.0) % Eosinophils % 1.4 (0.00-5.0) % Basophils % 0.8 (0.0-0.4) % Absolute Granulocytes 5.35 (1.4-6.9) Basophils # 0.06 (0-0.4) Sodium 136 L (137-145) mmol/L Potassium 4.3 (3.5-5.1) mmol/L Chloride 102 (98-107) mmol/L Carbon Dioxide 26 (22-30) mmol/L Anion Gap 12.4 (5-15) MEQ/L BUN 24 H (9-20) mg/dL Creatinine 0.88 (0.66-1.25) mg/dL Estimated GFR > 60.0 ML/MIN Glucose 177 H (74-106) mg/dL Calcium 9.6 (8.4-10.2) mg/dL Total Bilirubin 0.90 (0.2-1.3) mg/dL AST 16 L (17-59) U/L ALT 13 (0-50) U/L Alkaline Phosphatase 88 (38-126) U/L Serum Total Protein 7.2 (6.3-8.2) g/dL Albumin 4.0 (3.5-5.0) g/dL Lipase 77 (23-300) U/L Urine Color YELLOW (YELLOW) Urine Appearance CLEAR (CLEAR) Urine pH 5.0 (5-6) Ur Specific [place] 1.024 (1.005-1.025) Urine Protein NEGATIVE (Negative) Urine Ketones NEGATIVE (NEGATIVE) Urine Blood NEGATIVE (0-5) García/ul Urine Nitrite NEGATIVE (NEGATIVE) Urine Bilirubin NEGATIVE (NEGATIVE) Urine Urobilinogen 2 (0-1) mg/dL Ur Leukocyte Esterase NEGATIVE (NEGATIVE) Urine WBC (Auto) 0-2 (0-5) /HPF Urine RBC (Auto) NONE (0-2) /HPF U Epithel Cells (Auto) NONE (FEW) /HPF Urine Bacteria (Auto) NONE (NEGATIVE) /HPF Urine Mucus (Auto) SLIGHT (NEGATIVE) /HPF Urine Culture Reflexed NO (NO) Urine Glucose >=500 (NEGATIVE) mg/dL - Progress Progress: improved, pain not gone completely, re-examined Progress Note: 05/03/20 09:00 patient is not in severe pain on presentation. Does not want any stronger pain medication but Tylenol, on reevaluation pain is better and ambulating in the ER with a cane which he does normally. I have obtained CT abdomen pelvis without contrast which did not show any acute intra-abdominal finding, patient has tenderness in the left sacroiliac area but no sclerotic/erosive/inflammatory findings. Unremarkable work-up otherwise. I believe patient symptoms are more of musculoskeletal, recommended taking Tylenol and outpatient follow-up. Does not have any midline tenderness on repeated evaluation as well. Do not think patient needs any further work-up and is stable for discharge with outpatient follow-up. Discussed signs symptoms of worsening needing return to ER which he seems understanding. Counseled pt/family regarding: lab results, diagnosis, need for follow-up, rad results - Departure Departure Disposition: Home Clinical Impression: Left low back pain Qualifiers: Chronicity: unspecified Sciatica presence: without sciatica Qualified Code(s): M54.5 - Low back pain Condition: Stable Critical Care Time: No Referrals: KIRAN ADAM [Primary Care Provider] - Follow Up with PCP/3 days Instructions: Low Back Pain in Adults, Flank Pain Additional Instructions: Take Tylenol as needed. Follow-up with primary care for reevaluation. Return to ER for worsening back pain, numbness tingling weakness of lower extremities, loss of bowel or bladder control or difficulty ambulation.
[2020-05-03 07:59] LABS: Absolute Neutrophil Ct (ANC) 5.35 (1.4-6.9); BASOPHIL % 0.8 % (0.0-0.4); Basophil (Absolute #) 0.06 (0-0.4); Eosinophil % 1.4 % (0.00-5.0); Eosinophil (Absolute #) 0.11 (0-0.5); Hemoglobin 14.7 gm/dl (12.5-18.0); Lymphocytes % 19.1 % (24.0-44.0); Mean Cell Volume 91.8 fl (78-100); Mean Corpuscular Hemoglobin 29.3 pg (26-32); Mean Platelet Volume 11.2 fl (7.5-11.0); Monocyte (Absolute #) 0.82 (0.0-1.3); Monocytes % 10.5 % (0.0-12.0); Neutrophil % 68.2 % (36.0-66.0); Platelet Count 289 K/mm3 (150-450); Red Blood Count 5.01 M/mm3 (4.1-5.6); Red Cell Distribution Width 14.7 % (11.5-14.0); White Blood Count 7.8 K/mm3 (4.0-10.5)
[2020-05-03 08:08] LABS: Appearance CLEAR (CLEAR); Bilirubin NEGATIVE (NEGATIVE); Blood NEGATIVE Ery/ul (0-5); Glucose >=500 mg/dL (NEGATIVE); Ketones NEGATIVE (NEGATIVE); Leukocyte Esterase NEGATIVE (NEGATIVE); Mucus SLIGHT /HPF (NEGATIVE); Nitrite NEGATIVE (NEGATIVE); Protein,Urine Dip NEGATIVE (Negative); Specific Gravity 1.024 (1.005-1.025); Urobilinogen 2 mg/dL (0-1); WBC 0-2 /HPF (0-5)
[2020-05-03 08:37] LABS: ALKALINE PHOSPHATASE 88 U/L (38-126); ANION GAP 12.4 MEQ/L (5-15); BLOOD UREA NITROGEN 24 mg/dL (9-20); CHLORIDE 102 mmol/L (98-107); Calcium 9.6 mg/dL (8.4-10.2); Carbon Dioxide 26 mmol/L (22-30); Creatinine 1 0.88 mg/dL (0.66-1.25); Glucose 177 mg/dL (74-106); LIPASE 77 U/L (23-300); Potassium 4.3 mmol/L (3.5-5.1); SGOT/AST 16 U/L (17-59); SGPT/ALT 13 U/L (0-50); SODIUM 136 mmol/L (137-145); Total Protein 7.2 g/dL (6.3-8.2)
[2020-05-03 08:52] VITALS: BP 135/82; PULSE 76
[2020-05-03 09:12] VITALS: O2SAT 93
--- NOTE | 2020-05-03 16:47 | XRAY ---
Indication: Left flank pain. Multiple contiguous axial images obtained through the abdomen and pelvis without contrast as ordered. Comparison: October 22, 2019. Lung bases again demonstrates pulmonary emphysema with scattered bibasilar fibrosis/scarring. No infiltrate or effusion. Heart is not enlarged. Noncontrasted stomach and bowel loops remain nonobstructed. Normal appendix. Mild fecal debris predominantly in the ascending and transverse colon. Stable fatty liver, hepatic cyst, cholecystectomy, calcified splenic granulomas, and enlarged prostate gland. Previous node posterior to the descending duodenum today measures 9 x 15 mm, previously 14 x 16 mm. No new pathologic mesenteric or retroperitoneal lymphadenopathy. Remaining liver, pancreas, spleen, adrenal glands, kidneys, ureters, and bladder appear unremarkable for noncontrast exam. Stable mild scattered aortoiliac calcifications without AAA. Osseous structures remain intact again with mild degenerative changes throughout the thoracolumbar spine. Impression: 1. Stable fatty liver, hepatic cyst, enlarged prostate gland, arteriosclerotic disease, chronic bony findings, and old granulomatous disease. 2. No new or acute intra-abdominal/pelvic abnormalities on this noncontrast exam. Comment: Preliminary interpretation was made by [facility]. No critical discrepancy.
== END 2020-05-03 09:00 | disposition home or self-care (01) ==
LOC: ED 07:13
DX: M54.5 Low back pain (principal); I25.10 Atherosclerotic heart disease of native coronary artery without angina pectoris; E78.00 Pure hypercholesterolemia, unspecified; E11.9 Type 2 diabetes mellitus without complications; Z86.73 Personal history of transient ischemic attack (TIA), and cerebral infarction without residual deficits; Z79.899 Other long term (current) drug therapy; R10.9 Unspecified abdominal pain
CPT/HCPCS: 36000; 36415; 74176; 80053; 81001; 83690; 85025; 96374; 99284; J2405; A9270-GY

== ENCOUNTER 2020-07-01 11:10 | Emergency (ER) | payer MEDICARE ==
--- NOTE | 2020-07-01 11:24 | ERPHSYRPT ---
- History of Present Illness Time Seen by Provider: 07/01/20 11:20 Historian: patient Exam Limitations: no limitations Physician History: Patient is a 84-year-old male who presents to our ED with complaints of generalized abdominal pain, left shoulder pain and foggy thinking. Symptoms started approximately 3 days ago. Symptoms have been constant. Symptoms are mild to moderate in intensity. Abdominal pain is generalized but somewhat worse to the suprapubic region. No trauma or fevers. Patient has stroke approximately a year ago. Left shoulder pain described as an ache that is well localized. Pain is mild to moderate in intensity. Movement worsens symptoms. No trauma. No nausea or vomiting. No diarrhea. No rash. Patient voices no other complaints or concerns at this time. Timing/Duration: day(s) (3 days ago) Activities at Onset: none Quality: aching Abdominal Pain Onset Location: generalized abdomen Pain Radiation: no radiation Severity of Pain-Max: moderate Severity of Pain-Current: mild Modifying Factors: Improves With: nothing Associated Symptoms: No chest pain, No diarrhea, No fever/chills, No nausea, No vomiting, No weakness Previous symptoms: no prior history Allergies/Adverse Reactions: morphine Adverse Reaction (Verified 07/01/20 11:24) Fainting Home Medications: Omeprazole 20 mg PO BID 10/07/18 [History] Atorvastatin Calcium [Lipitor] 20 mg PO HS 10/19/18 [History] Aspirin EC 81 mg [Ecotrin 81 mg] 81 mg PO DAILY 03/06/20 [History] Fluoxetine HCl 10 mg PO DAILY 03/06/20 [History] Insulin Detemir [Levemir] 20 unit SQ BID 03/06/20 [History] Canagliflozin [Invokana] 1 tab PO DAILY 05/03/20 [History] Hx Tetanus, Diphtheria Vaccination/Date Given: No Hx Influenza Vaccination/Date Given: Yes Hx Pneumococcal Vaccination/Date Given: Yes - Review of Systems Constitutional: No Symptoms, No Fever, No Chills Eyes: No Symptoms Ears, Nose, & Throat: No Symptoms Respiratory: No Symptoms, No Cough, No Dyspnea Cardiac: No Symptoms, No Chest Pain, No Edema, No Syncope Abdominal/Gastrointestinal: No Symptoms, No Abdominal Pain, No Nausea, No Vomiting, No Diarrhea Genitourinary Symptoms: No Symptoms, No Dysuria Musculoskeletal: No Symptoms, No Back Pain, No Neck Pain Skin: No Symptoms, No Rash Neurological: No Dizziness, No Focal Weakness, No Sensory Changes Psychological: No Symptoms Endocrine: No Symptoms Hematologic/Lymphatic: No Symptoms Immunological/Allergic: No Symptoms All Other Systems: Reviewed and Negative - Past Medical History Pertinent Past Medical History: Yes Neurological History: No Pertinent History ENT History: No Pertinent History Cardiac History: Coronary Artery Disease, High Cholesterol Respiratory History: No Pertinent History Endocrine Medical History: Diabetes Type II Musculoskeletal History: No Pertinent History GI Medical History: Gallbladder Disease History: No Pertinent History Psycho-Social History: No Pertinent History Male Reproductive Disorders: No Pertinent History - Past Surgical History Past Surgical History: Yes (gallbladder, 2 stents) Neuro Surgical History: Other Cardiac: Cardiac Catheterization, Cardiac Stent Respiratory: No Pertinent History Gastrointestinal: Cholecystectomy Genitourinary: No Pertinent History Musculoskeletal: No Pertinent History Male Surgical History: No Pertinent History Other Surgical History: enlarged lymph node removed from L neck(benign per pt), 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 - Social History Smoking Status: Former smoker Exposure to second hand smoke: No Drug Use: none Patient Lives Alone: No - Nursing Vital Signs Nursing Vital Signs: Initial Vital Signs Temperature 97.7 F 07/01/20 11:13 Pulse Rate 71 07/01/20 11:13 Respiratory Rate 20 07/01/20 11:13 Blood Pressure 188/90 07/01/20 11:13 O2 Sat by Pulse Oximetry 94 L 07/01/20 11:13 Pain Scale Pain Intensity 5 - Physical Exam General Appearance: no apparent distress, alert Eye Exam: PERRL/EOMI, eyes nml inspection Ears, Nose, Throat Exam: normal ENT inspection, pharynx normal, moist mucous membranes Neck Exam: normal inspection, non-tender, supple, full range of motion Respiratory Exam: normal breath sounds, lungs clear, No respiratory distress Cardiovascular Exam: regular rate/rhythm, normal heart sounds Gastrointestinal/Abdomen Exam: soft, other (generalized abdominal pain but worse at the suprapubic area. Overlying soft tissue intact.), No tenderness, No mass, No pulsatile mass, No rebound, No organomegaly Back Exam: normal inspection, normal range of motion, No CVA tenderness, No vertebral tenderness Extremity Exam: normal inspection, normal range of motion, pelvis stable Neurologic Exam: alert, oriented x 3, cooperative, normal mood/affect, nml cerebellar function, sensation nml, No motor deficits Skin Exam: normal color, warm, dry Lymphatic Exam: No adenopathy SpO2 Interpretation: normal SpO2: 94 O2 Delivery: Room Air - Course Nursing assessment & vital signs reviewed: Yes EKG Interpreted by Me: RATE (68), NORMAL AXIS, prolonged QT interval, NORMAL QRS - Radiology Exams Shoulder X-ray Interpretation: Teleradiologist Report (No acute fracture dislocation of the left shoulder. Remainder of the findings are unchanged from 03/06/2020. Left AC osteoarthritis observed. Chronic rotator cuff disease. Calcific tendinitis.) Ordered Tests: Active Orders 24 hr Category Date Time Status Lighting Fixture Installer STAT Care 07/01/20 11:24 Active EKG-ER Only STAT Care 07/01/20 11:19 Active IV Insertion STAT Care 07/01/20 11:19 Active ABDOMEN AND PELVIS W/0 CONTRAS [CT] Stat Exams 07/01/20 11:21 Completed SHOULDER Stat Exams 07/01/20 11:26 Completed CBC W DIFF Stat Lab 07/01/20 11:35 Completed CMP Stat Lab 07/01/20 11:35 Completed CULTURE,URINE Stat Lab 07/01/20 11:20 Received LIPASE Stat Lab 07/01/20 11:35 Completed TROPONIN Q3H Lab 07/01/20 11:35 Completed TROPONIN Q3H Lab 07/01/20 14:30 Ordered TROPONIN Q3H Lab 07/01/20 17:30 Ordered TROPONIN Q3H Lab 07/01/20 20:30 Ordered TROPONIN Q3H Lab 07/01/20 23:30 Ordered UA W/RFX UR CULTURE Stat Lab 07/01/20 11:20 Completed Medication Summary Generic Name Dose Route Start Last Admin Trade Name Freq PRN Reason Stop Dose Admin Ceftriaxone Sodium/Dextrose 1 g in 50 mls @ 100 mls/hr 07/01/20 13:42 07/01/20 13:47 Rocephin 1 Gm-D5w 50 Ml Bag IV 07/01/20 14:11 100 ml/hr STAT STA 100 mls/hr Administration Discontinued Medications Generic Name Dose Route Start Last Admin Trade Name Freq PRN Reason Stop Dose Admin Ceftriaxone Sodium/Dextrose Confirm 07/01/20 13:43 Rocephin 1 Gm-D5w 50 Ml Bag Administered 07/01/20 13:44 Dose 1 g in 50 mls @ ud IV .STK-MED ONE Lab/Rad Data: Laboratory Result Diagrams 07/01/20 11:35 07/01/20 11:35 Laboratory Results 07/01/20 07/01/20 07/01/20 Range/Units 11:35 11:35 11:35 WBC 6.5 (4.0-10.5) K/mm3 RBC 5.02 (4.1-5.6) M/mm3 Hgb 14.4 (12.5-18.0) gm/dl Hct 45.5 (42-50) % MCV 90.6 (78-100) fl MCH 28.7 (26-32) pg MCHC 31.6 L (32-36) g/dl RDW 15.0 H (11.5-14.0) % Plt Count 234 (150-450) K/mm3 MPV 11.1 H (7.5-11.0) fl Gran % 80.1 H (36.0-66.0) % Eos # (Auto) 0.06 (0-0.5) Absolute Lymphs (auto) 0.53 L (1.0-4.6) Absolute Monos (auto) 0.66 (0.0-1.3) Lymphocytes % 8.2 L (24.0-44.0) % Monocytes % 10.2 (0.0-12.0) % Eosinophils % 0.9 (0.00-5.0) % Basophils % 0.6 (0.0-0.4) % Absolute Granulocytes 5.21 (1.4-6.9) Basophils # 0.04 (0-0.4) Sodium 136 L (137-145) mmol/L Potassium 4.0 (3.5-5.1) mmol/L Chloride 104 (98-107) mmol/L Carbon Dioxide 24 (22-30) mmol/L Anion Gap 11.7 (5-15) MEQ/L BUN 14 (9-20) mg/dL Creatinine 0.69 (0.66-1.25) mg/dL Estimated GFR > 60.0 ML/MIN Glucose 131 H (74-106) mg/dL Calcium 9.1 (8.4-10.2) mg/dL Total Bilirubin 1.00 (0.2-1.3) mg/dL AST 19 (17-59) U/L ALT 14 (0-50) U/L Alkaline Phosphatase 76 (38-126) U/L Troponin I < 0.012 (0.000-0.034) ng/mL Serum Total Protein 6.9 (6.3-8.2) g/dL Albumin 3.9 (3.5-5.0) g/dL Lipase 46 (23-300) U/L Urine Color (YELLOW) Urine Appearance (CLEAR) Urine pH (5-6) Ur Specific [place] (1.005-1.025) Urine Protein (Negative) Urine Ketones (NEGATIVE) Urine Blood (0-5) García/ul Urine Nitrite (NEGATIVE) Urine Bilirubin (NEGATIVE) Urine Urobilinogen (0-1) mg/dL Ur Leukocyte Esterase (NEGATIVE) Urine WBC (Auto) (0-5) /HPF Urine RBC (Auto) (0-2) /HPF U Epithel Cells (Auto) (FEW) /HPF Urine Bacteria (Auto) (NEGATIVE) /HPF Amorphous Crystals (NEGATIVE) /HPF Urine Culture Reflexed (NO) Urine Glucose (NEGATIVE) mg/dL 07/01/20 Range/Units 11:20 WBC (4.0-10.5) K/mm3 RBC (4.1-5.6) M/mm3 Hgb (12.5-18.0) gm/dl Hct (42-50) % MCV (78-100) fl MCH (26-32) pg MCHC (32-36) g/dl RDW (11.5-14.0) % Plt Count (150-450) K/mm3 MPV (7.5-11.0) fl Gran % (36.0-66.0) % Eos # (Auto) (0-0.5) Absolute Lymphs (auto) (1.0-4.6) Absolute Monos (auto) (0.0-1.3) Lymphocytes % (24.0-44.0) % Monocytes % (0.0-12.0) % Eosinophils % (0.00-5.0) % Basophils % (0.0-0.4) % Absolute Granulocytes (1.4-6.9) Basophils # (0-0.4) Sodium (137-145) mmol/L Potassium (3.5-5.1) mmol/L Chloride (98-107) mmol/L Carbon Dioxide (22-30) mmol/L Anion Gap (5-15) MEQ/L BUN (9-20) mg/dL Creatinine (0.66-1.25) mg/dL Estimated GFR ML/MIN Glucose (74-106) mg/dL Calcium (8.4-10.2) mg/dL Total Bilirubin (0.2-1.3) mg/dL AST (17-59) U/L ALT (0-50) U/L Alkaline Phosphatase (38-126) U/L Troponin I (0.000-0.034) ng/mL Serum Total Protein (6.3-8.2) g/dL Albumin (3.5-5.0) g/dL Lipase (23-300) U/L Urine Color YELLOW (YELLOW) Urine Appearance CLOUDY (CLEAR) Urine pH 6.0 (5-6) Ur Specific [place] 1.021 (1.005-1.025) Urine Protein NEGATIVE (Negative) Urine Ketones NEGATIVE (NEGATIVE) Urine Blood SMALL (0-5) García/ul Urine Nitrite NEGATIVE (NEGATIVE) Urine Bilirubin NEGATIVE (NEGATIVE) Urine Urobilinogen 4 (0-1) mg/dL Ur Leukocyte Esterase MODERATE (NEGATIVE) Urine WBC (Auto) 26-50 (0-5) /HPF Urine RBC (Auto) 6-10 (0-2) /HPF U Epithel Cells (Auto) NONE (FEW) /HPF Urine Bacteria (Auto) MANY (NEGATIVE) /HPF Amorphous Crystals FEW (NEGATIVE) /HPF Urine Culture Reflexed YES (NO) Urine Glucose >=500 (NEGATIVE) mg/dL - Progress Progress: improved Progress Note: 07/01/20 13:[address] Leger for his T12 compression fracture. We contacted Dr. Lyons's office and forwarded a referral to Dr. Leger's office for management of his T12 compression fracture. CT scan also shows constipation and a urinary tract infection. IV antibiotics administered. He antibiotic prescription was forwarded the patient's pharmacy. Patient requesting discharge. Patient voiced no other complaints or concerns at this time. Patient agrees to follow-up with Dr. Lyons within 48 hours for reevaluation. Discussed with : Brent Will see patient in: office Counseled pt/family regarding: lab results, diagnosis, rad results - Departure Departure Disposition: Home Clinical Impression: UTI (urinary tract infection), Lung granuloma, Osteoarthritis of AC (acromioclavicular) joint, Emphysema lung, Liver cyst, Liver nodule, Atherosclerosis of aorta, Right inguinal hernia, Constipation, Prostate hypertrophy, T12 compression fracture Condition: Stable Critical Care Time: No Referrals: KIRAN LYONS [Primary Care Provider] - Instructions: Chronic Obstructive Pulmonary Disease Additional Instructions: Discharge/Care Plan PAULETTE CHINO was seen on 07/01/20 in the Emergency Room. The patient was counseled regarding Diagnosis,Lab results, Imaging studies, need for follow up and when to return to the Emergency Room. Prescriptions given: Discharge Note I have spoken with the patient and/or caregivers. I have explained the patient's condition, diagnosis and treatment plan based on the information available to me at this time. I have answered the patient's and/or caregiver's questions and addressed any concerns. The patient and/or caregivers have as good understanding of the patient's diagnosis, condition and treatment plan as can be expected at this point. The vital signs have been stable. The patient's condition is stable and appropriate for discharge from the emergency department. The patient will pursue further outpatient evaluation with the primary care physician or other designated or consulting physician as outlined in the discharge instructions. The patient and/or caregivers are agreeable to this plan of care and follow-up instructions have been explained in detail. The patient and/or caregivers have received these instruction. The patient/and or caregivers are aware that any significant change in condition or worsening of symptoms should prompt an immediate return to this or the closest emergency department or call 911. Prescriptions: Ciprofloxacin [Cipro 500 MG] 500 mg PO BID 14 Days #28 tablet Docusate Sodium 100 mg [Colace 100 MG] 100 mg PO BID 14 Days #28 cap
[2020-07-01 11:32] LABS: Amourphous Crystal FEW /HPF (NEGATIVE); Appearance CLOUDY (CLEAR); Bacteria MANY /HPF (NEGATIVE); Bilirubin NEGATIVE (NEGATIVE); Blood SMALL Ery/ul (0-5); Glucose >=500 mg/dL (NEGATIVE); Ketones NEGATIVE (NEGATIVE); Leukocyte Esterase MODERATE (NEGATIVE); Nitrite NEGATIVE (NEGATIVE); Protein,Urine Dip NEGATIVE (Negative); Specific Gravity 1.021 (1.005-1.025); Urobilinogen 4 mg/dL (0-1); WBC 26-50 /HPF (0-5)
[2020-07-01 11:48] LABS: Absolute Neutrophil Ct (ANC) 5.21 (1.4-6.9); BASOPHIL % 0.6 % (0.0-0.4); Basophil (Absolute #) 0.04 (0-0.4); Eosinophil % 0.9 % (0.00-5.0); Eosinophil (Absolute #) 0.06 (0-0.5); Hematocrit 45.5 % (42-50); Hemoglobin 14.4 gm/dl (12.5-18.0); Lymphocyte (Absolute #) 0.53 (1.0-4.6); Lymphocytes % 8.2 % (24.0-44.0); Mean Cell Volume 90.6 fl (78-100); Mean Corpuscular Hemoglobin 28.7 pg (26-32); Mean Corpuscular Hgb Concent. 31.6 g/dl (32-36); Mean Platelet Volume 11.1 fl (7.5-11.0); Monocyte (Absolute #) 0.66 (0.0-1.3); Monocytes % 10.2 % (0.0-12.0); Neutrophil % 80.1 % (36.0-66.0); Platelet Count 234 K/mm3 (150-450); Red Blood Count 5.02 M/mm3 (4.1-5.6); White Blood Count 6.5 K/mm3 (4.0-10.5)
[2020-07-01 11:59] LABS: ALBUMIN 3.9 g/dL (3.5-5.0); ALKALINE PHOSPHATASE 76 U/L (38-126); ANION GAP 11.7 MEQ/L (5-15); BLOOD UREA NITROGEN 14 mg/dL (9-20); CHLORIDE 104 mmol/L (98-107); Calcium 9.1 mg/dL (8.4-10.2); Carbon Dioxide 24 mmol/L (22-30); Creatinine 1 0.69 mg/dL (0.66-1.25); EST GLOMERULAR FILTRATION RATE > 60.0 ML/MIN; Glucose 131 mg/dL (74-106); LIPASE 46 U/L (23-300); SGOT/AST 19 U/L (17-59); SGPT/ALT 14 U/L (0-50); SODIUM 136 mmol/L (137-145); Total Protein 6.9 g/dL (6.3-8.2)
--- NOTE | 2020-07-01 12:49 | XRAY ---
Exam: 3 view left shoulder series from 07/01/2020. Comparison: 3 view left shoulder series from 03/06/2020. Indication: 84-year-old male with left shoulder pain; fell 4 months ago, and then fell again one month ago. Findings: AP internal rotation, AP external rotation, and a shallow Y view of the left shoulder were obtained. I see no acute fracture or dislocation. There is mild nonuniform narrowing of the glenohumeral joint with minimal marginal spurring inferiorly representing no change. Slight elevation of the left humeral head with respect to the glenoid is again seen. I again note 2 tiny calcifications adjacent to the lateral margin of the left humeral head on the AP internal rotation view. Mild osteoarthritis affecting the left acromioclavicular joint is again seen. There is moderate left apical pleural thickening and a calcified granuloma with adjacent focal probable pleural-parenchymal scarring at the lateral margin of the left lung apex, stable from 03/06/2020. Impression: 1. No acute fracture or dislocation of the left shoulder is seen. 2. The remainder of the findings are unchanged from 03/06/2020 and suggest mild osteoarthritis of both the left acromioclavicular joint and glenohumeral joint space, mild chronic rotator cuff disease, and hydroxyapatite deposition disease, or calcific tendinitis, adjacent to the lateral margin of the left humeral head on AP internal rotation view.
--- NOTE | 2020-07-01 13:25 | XRAY ---
Exam: CT of the abdomen and pelvis without IV contrast from 07/01/2020. CTDI: 8.44 mGy Comparison: CT of the abdomen and pelvis without IV contrast from 05/03/2020. Indication: 84-year-old male with pain in upper mid abdomen, constipation, history of pancreatitis. Technique: Non-IV contrast axial images were obtained through the abdomen and pelvis. Reconstructed coronal and sagittal images were created and reviewed. The patient was unable to lift his left arm over his head for this exam. Findings: The lung bases appear clear. I believe there is some mild centrilobular emphysematous changes at each lung base, right greater than left. The liver appears of normal size. I again see a small oval-shaped 1.4 cm in diameter low-attenuation nodule within the lateral aspect of the right lobe of the liver which is unchanged and probably represents a hepatic cyst. In addition, within the medial aspect of the left hepatic lobe on axial image #19 there is a 1.0 cm in diameter low-attenuation rounded nodule which I believe is unchanged from 05/03/2020 and probably represents a second hepatic cyst. No other liver mass or intrahepatic biliary duct distention is seen. It should be noted that organ assessment on a non-IV contrast study is somewhat limited. Surgical clips consistent with prior cholecystectomy are seen. The spleen reveals a small calcified granuloma. It appears of normal size and is without mass. The pancreas reveals mild fatty change within the uncinate process representing no change. Otherwise, the pancreas is unremarkable without evidence of calcifications, focal mass, inflammatory changes, swelling, or pancreatic duct distention. On coronal image #67, I see a 2.2 cm x 1.2 cm oval-shaped soft tissue nodule which appears about the same size that seen on coronal image #72 from 05/03/2020. This probably represents a mesenteric lymph node. I believe this is also seen in axial image #26. No definite abnormal mesenteric lymphadenopathy is seen. The adrenal glands appear normal size and configuration. Both kidneys are unremarkable size and reveal no renal calculi, gross mass, or hydronephrosis. There appears to be some minimal chronic bilateral cortical scarring within the kidneys. Atherosclerotic vascular calcification is seen within the abdominal aorta. There is minimal anterior bulging of the infrarenal abdominal aorta which measures about 2.65 cm in AP dimension on sagittal image #105. In retrospect, I believe this is unchanged. On axial image #40, the abdominal aorta at this level measures a maximum of 2.8 cm in AP dimension and 2.4 cm in width. This also is essentially unchanged. No abnormal retroperitoneal lymphadenopathy is seen. Some vascular calcifications seen within both proximal renal arteries and the SMA. On each side of midline just superior to the umbilicus, I note some minimal superficial subcutaneous soft tissue density which is likely due to injections. Correlate clinically. No ventral hernia is seen. There is a small stable fat containing right inguinal hernia. No bowel containing hernia is seen. There is no free intraperitoneal air. The appendix appears unremarkable within the right lower quadrant. The bowel is nonobstructed. Moderate diffuse colonic stool is seen consistent with fecal stasis. No definite bowel wall thickening is seen. Atherosclerotic vascular calcification is seen within the common iliac arteries and branches of the internal iliac arteries as well as both common femoral arteries. No enlarged pelvic lymph nodes or free intraperitoneal fluid is seen. The urinary bladder is mildly distended and reveals no gross abnormality. The prostate gland appears enlarged measuring 5.4 cm in width. This also is unchanged. The skeleton reveals a new mild generalized compression fracture deformity of the superior aspect of the T12 vertebral body including the endplate as compared to 05/03/2020. In addition, vacuum disc phenomena is seen within the T11-T12 interspaces indicating degenerative disc disease at this level. This also is new from 05/03/2020. Mild to moderate facet joint arthropathy is seen at L4-L5 and L5-S1 bilaterally. There is slight chronic loss of the posterior vertebral body height of L5 representing no change from 05/03/2020. No aggressive bone lesion is seen. Impression: 1. New mild generalized compression fracture deformity of the superior aspect of the T12 vertebral body and superior endplate, more toward the left than right, as compared to 05/03/2020. There appears to be about 15% loss of the anticipated T12 vertebral body height. In addition, vacuum disc phenomena is seen at T11-T12 which is new from 05/03/2020 and is consistent with moderate degenerative disc disease. 2. Minimal stable anterior bulge of the infrarenal abdominal aorta on axial images #38 through #40. This measures a maximum of about 2.8 cm in AP depth. 3. Other chronic changes consisting of mild centrilobular emphysematous changes within the lung bases, evidence of prior cholecystectomy, a couple small stable hepatic cysts, a stable appearing lymph node posterior to the distal descending duodenum, mild cortical bilateral renal scarring, fecal stasis, fat-containing right inguinal hernia, and mild prostatomegaly are seen. 4. I see no findings of acute pancreatitis or pancreatic mass. I again see minimal fatty change within the uncinate process of the pancreas. 5. There is no evidence of appendicitis.
[2020-07-01] MEDS ORDERED: ROCEPHIN 1 Gm-D5w 50 ml Bag** 1 G/50 ML IVPB IV STA (13:42)
[2020-07-01] MEDS ORDERED: ROCEPHIN 1 Gm-D5w 50 ml Bag** 1 G/50 ML IVPB IV ONE (13:43)
[2020-07-01 14:09] LABS: Slide Review 1 YES
[2020-07-01 15:43] VITALS: BP 147/82; PULSE 87; O2SAT 95
== END 2020-07-01 15:43 | disposition home or self-care (01) ==
LOC: ED 11:10
DX: N39.0 Urinary tract infection, site not specified (principal); J84.10 Pulmonary fibrosis, unspecified; M19.019 Primary osteoarthritis, unspecified shoulder; I70.0 Atherosclerosis of aorta; K40.90 Unilateral inguinal hernia, without obstruction or gangrene, not specified as recurrent; K59.00 Constipation, unspecified; N40.0 Benign prostatic hyperplasia without lower urinary tract symptoms; M48.54XA Collapsed vertebra, not elsewhere classified, thoracic region, initial encounter for fracture; Z79.899 Other long term (current) drug therapy; I25.10 Atherosclerotic heart disease of native coronary artery without angina pectoris; E11.9 Type 2 diabetes mellitus without complications
CPT/HCPCS: 36000; 36415; 73030; 74176; 80053; 81001; 83690; 84484; 85025; 87086; 93005; 93041; 96365; 99284; J0696

== ENCOUNTER 2020-12-05 11:40 | Observation (INO) | payer MEDICARE ==
[2020-12-05] MEDS ORDERED: Sodium Chloride 0.9% 1000 ML 1,000 ML IV STA (12:15)
[2020-12-05] MEDS ORDERED: Zofran 4 MG/2 ML VIAL IV ONE (12:17)
--- NOTE | 2020-12-05 12:20 | ERPHSYRPT ---
- History of Present Illness Time Seen by Provider: 12/05/20 11:46 Source: patient Exam Limitations: no limitations Physician History: Patient is here with nausea and vomiting. No falls no trauma. Possibly some lower abdominal pain. Chronic. Has been going on for 1 week. Has not been able to see PCP. Location: abdomen Quality: N/V Radiation: none Severity: moderate Duration: 1 week Timing: gradual Modifying factors/associated signs and symptoms: none tried Allergies/Adverse Reactions: morphine Adverse Reaction (Verified 12/05/20 12:08) Fainting Home Medications: Omeprazole 20 mg PO BID 10/07/18 [History] Atorvastatin Calcium [Lipitor] 20 mg PO HS 10/19/18 [History] Aspirin EC 81 mg [Ecotrin 81 mg] 81 mg PO DAILY 03/06/20 [History] Fluoxetine HCl 10 mg PO DAILY 03/06/20 [History] Insulin Detemir [Levemir] 20 unit SQ BID 03/06/20 [History] Canagliflozin [Invokana] 100 mg PO 12/05/20 [History] Hydrocodone/Acetaminophen [Hydrocodone-Acetamin 5-325 mg ] 1 tab PO DAILY PRN PRN 12/05/20 [History] Hx Tetanus, Diphtheria Vaccination/Date Given: No Hx Influenza Vaccination/Date Given: Yes Hx Pneumococcal Vaccination/Date Given: Yes - Review of Systems Constitutional: No Fever, No Chills Eyes: No Symptoms Ears, Nose, & Throat: No Symptoms Respiratory: No Cough, No Dyspnea Cardiac: No Chest Pain, No Edema, No Syncope Abdominal/Gastrointestinal: Abdominal Pain, Nausea, Vomiting, No Diarrhea Genitourinary Symptoms: No Dysuria Musculoskeletal: No Back Pain, No Neck Pain Skin: No Rash Neurological: No Dizziness, No Focal Weakness, No Sensory Changes Psychological: No Symptoms Endocrine: No Symptoms All Other Systems: Reviewed and Negative - Past Medical History Pertinent Past Medical History: Yes Neurological History: No Pertinent History ENT History: No Pertinent History Cardiac History: Coronary Artery Disease, High Cholesterol Respiratory History: No Pertinent History Endocrine Medical History: Diabetes Type II Musculoskeletal History: No Pertinent History GI Medical History: Gallbladder Disease History: No Pertinent History Psycho-Social History: No Pertinent History Male Reproductive Disorders: No Pertinent History - Past Surgical History Past Surgical History: Yes (gallbladder, 2 stents) Neuro Surgical History: Other Cardiac: Cardiac Catheterization, Cardiac Stent Respiratory: No Pertinent History Gastrointestinal: Cholecystectomy Genitourinary: No Pertinent History Musculoskeletal: No Pertinent History Male Surgical History: No Pertinent History Other Surgical History: enlarged lymph node removed from L neck(benign per pt), 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 - Social History Smoking Status: Former smoker Exposure to second hand smoke: No Drug Use: none Patient Lives Alone: No - Nursing Vital Signs Nursing Vital Signs: Initial Vital Signs Temperature 98.0 F 12/05/20 11:55 Pulse Rate 99 H 12/05/20 11:55 Respiratory Rate 18 12/05/20 11:55 Blood Pressure 125/76 12/05/20 11:55 O2 Sat by Pulse Oximetry 94 L 12/05/20 11:55 Pain Scale Pain Intensity 6 - Physical Exam General Appearance: no apparent distress, alert Eye Exam: PERRL/EOMI, eyes nml inspection Ears, Nose, Throat Exam: normal ENT inspection, TMs normal, pharynx normal, moist mucous membranes Neck Exam: normal inspection, non-tender, supple, full range of motion Respiratory Exam: normal breath sounds, lungs clear, No respiratory distress Cardiovascular Exam: normal heart sounds, normal peripheral pulses, tachycardia Gastrointestinal/Abdomen Exam: soft, normal bowel sounds, other (No abdominal tenderness to palpation. No rebound or guarding.), No tenderness, No mass Back Exam: normal inspection, normal range of motion, No CVA tenderness, No vertebral tenderness Extremity Exam: normal inspection, normal range of motion, pelvis stable Neurologic Exam: alert, oriented x 3, cooperative, normal mood/affect, nml cerebellar function, nml station & gait, sensation nml, No motor deficits Skin Exam: normal color, warm, dry, No rash Lymphatic Exam: No adenopathy - Course Nursing assessment & vital signs reviewed: Yes EKG Interpreted by Me: Sinus Tach Ordered Tests: Active Orders 24 hr Category Date Time Status Code Status Order ROUTINE Care 12/05/20 13:46 Active EKG-ER Only STAT Care 12/05/20 12:15 Active IV Care Q6H Care 12/05/20 13:46 Active IV Insertion STAT Care 12/05/20 12:[address] in Observation ROUTINE Care 12/05/20 13:46 Active Heart-Healthy Diet Diet 12/05/20 Breakfast Active ABDOMEN AND PELVIS W CONTRAST [CT] Stat Exams 12/05/20 13:03 Completed CHEST 1 VIEW (PORTABLE) Stat Exams 12/05/20 12:16 Completed CHEST WITH CONTRAST [CT] Stat Exams 12/05/20 13:06 Completed HEAD WITHOUT CONTRAST [CT] Stat Exams 12/05/20 13:37 Completed CBC W DIFF AM.LAB Lab 12/06/20 04:00 Ordered CBC W DIFF Stat Lab 12/05/20 12:38 Completed CMP AM.LAB Lab 12/06/20 04:00 Ordered CMP Stat Lab 12/05/20 12:38 Completed LIPASE Stat Lab 12/05/20 12:38 Completed Lactic Acid AM.LAB Lab 12/06/20 04:00 Ordered NT PRO BNP Stat Lab 12/05/20 12:38 Completed TROPONIN Q3H Lab 12/05/20 12:38 Completed TROPONIN Q3H Lab 12/05/20 15:30 Ordered TROPONIN Q3H Lab 12/05/20 18:30 Ordered TROPONIN Q3H Lab 12/05/20 21:30 Ordered TROPONIN Q3H Lab 12/06/20 00:30 Ordered UA W/RFX UR CULTURE Stat Lab 12/05/20 12:15 Ordered Medication Summary Discontinued Medications Generic Name Dose Route Start Last Admin Trade Name Freq PRN Reason Stop Dose Admin Sodium Chloride 1,000 mls @ 999 mls/hr 12/05/20 12:15 12/05/20 13:42 Sodium Chloride 0.9% 1000 Ml IV 12/05/20 13:15 Infused .Q1H1M STA Infusion Sodium Chloride Confirm 12/05/20 12:30 Sodium Chloride 0.9% 1000 Ml Administered 12/05/20 12:31 Dose 1,000 mls @ ud .ROUTE .STK-MED ONE Piperacillin Sod/Tazobactam 100 mls @ 200 mls/hr 12/05/20 13:08 Sod 4.5 gm/ Sodium Chloride IV 12/05/20 13:37 STAT ONE Ondansetron HCl 8 mg 12/05/20 12:17 12/05/20 12:32 Zofran 4 Mg/2 Ml Vial IV 12/05/20 12:18 8 mg STAT ONE Administration Ondansetron HCl Confirm 12/05/20 12:30 Zofran 4 Mg/2 Ml Vial Administered 12/05/20 12:31 Dose 4 mg .ROUTE .STK-MED ONE Ondansetron HCl Confirm 12/05/20 12:33 Zofran 4 Mg/2 Ml Vial Administered 12/05/20 12:34 Dose 4 mg .ROUTE .STK-MED ONE Lab/Rad Data: Laboratory Result Diagrams 12/05/20 12:38 12/05/20 12:38 Laboratory Results 12/05/20 12/05/20 12/05/20 Range/Units 12:38 12:38 12:38 WBC 14.2 H (4.0-10.5) K/mm3 RBC 4.89 (4.1-5.6) M/mm3 Hgb 12.6 (12.5-18.0) gm/dl Hct 41.5 L (42-50) % MCV 84.9 (78-100) fl MCH 25.8 L (26-32) pg MCHC 30.4 L (32-36) g/dl RDW 14.8 H (11.5-14.0) % Plt Count 619 H (150-450) K/mm3 MPV 10.3 (7.5-11.0) fl Gran % 89.1 H (36.0-66.0) % Eos # (Auto) 0.01 (0-0.5) Absolute Lymphs (auto) 0.72 L (1.0-4.6) Absolute Monos (auto) 0.78 (0.0-1.3) Lymphocytes % 5.1 L (24.0-44.0) % Monocytes % 5.5 (0.0-12.0) % Eosinophils % 0.1 (0.00-5.0) % Basophils % 0.2 (0.0-0.4) % Absolute Granulocytes 12.67 H (1.4-6.9) Basophils # 0.03 (0-0.4) Sodium 133 L (137-145) mmol/L Potassium 4.6 (3.5-5.1) mmol/L Chloride 99 (98-107) mmol/L Carbon Dioxide 23 (22-30) mmol/L Anion Gap 15.6 H (5-15) MEQ/L BUN 24 H (9-20) mg/dL Creatinine 0.97 (0.66-1.25) mg/dL Estimated GFR > 60.0 ML/MIN Glucose 172 H (74-106) mg/dL Calcium 9.5 (8.4-10.2) mg/dL Total Bilirubin 1.00 (0.2-1.3) mg/dL AST 29 (17-59) U/L ALT 18 (0-50) U/L Alkaline Phosphatase 95 (38-126) U/L Troponin I < 0.012 (0.000-0.034) ng/mL NT-Pro-B Natriuret Pep 336 (0-1800) pg/mL Serum Total Protein 7.5 (6.3-8.2) g/dL Albumin 3.7 (3.5-5.0) g/dL Lipase 65 (23-300) U/L - Progress Progress: improved Progress Note: 12/05/20 12:20 differential diagnosis includes kidney stone, compression fracture, infection, UTI, triple AAA, STEMI, NSTEM - basic labs including: CBC, lipase, CMP, UA, trops, EKG - insert IV for fluids, pain meds, nausea control - consider imaging: CT ab/pelvis 12/05/20 15:04 Chest x-ray showed possible pneumonia. Therefore we obtained a CT head, chest, pelvis. We did obtain a CT head because his daughter MONE arrived and stated that he had been having some falls at home. The CT of the head demonstrated some old infarcts. This was known to the patient and to the patient's daughter. On CT chest demonstrates a large mass. This most likely was what we thought was a pneumonia. Possibly cancerous with metastasis . I did discuss this with the adult daughter, CC and the patient. They state their understanding need for continued work-up. Patient will still need to be admitted for dehydration and possible secondary pneumonia. Fluids started, antibiotics started in the emergency department. I discussed the case over the phone with on-call physician, Dr. Lyons. He did accept the patient to the hospital. Discussed with : Brent Will see patient in: hospital (observation) Counseled pt/family regarding: lab results, diagnosis, rad results - Departure Departure Disposition: Extended Care Facility Clinical Impression: Pneumonia, Lung mass, Nausea and vomiting, Dehydration, Elevated BUN Condition: Stable Critical Care Time: No Referrals: KIRAN LYONS [Primary Care Provider] -
[2020-12-05] MEDS ORDERED: Sodium Chloride 0.9% 1000 ML 1,000 ML ONE (12:30)
[2020-12-05] MEDS ORDERED: Zofran 4 MG/2 ML VIAL ONE ×2 (12:30→12:33)
--- NOTE | 2020-12-05 12:33 | XRAY ---
Indication: Vomiting. Comparison: August 19, 2019. Portable chest demonstrates new left apical irregular consolidation either organizing airspace disease versus mass. Stable COPD, biapical fibrosis/scarring, and left apical calcified granuloma. Heart not enlarged again with coronary stent. Bony thorax intact again with osteopenia and degenerative changes.
[2020-12-05 12:40] LABS: Absolute Neutrophil Ct (ANC) 12.67 (1.4-6.9); BASOPHIL % 0.2 % (0.0-0.4); Basophil (Absolute #) 0.03 (0-0.4); Eosinophil % 0.1 % (0.00-5.0); Eosinophil (Absolute #) 0.01 (0-0.5); Hematocrit 41.5 % (42-50); Hemoglobin 12.6 gm/dl (12.5-18.0); Lymphocyte (Absolute #) 0.72 (1.0-4.6); Lymphocytes % 5.1 % (24.0-44.0); Mean Cell Volume 84.9 fl (78-100); Mean Corpuscular Hemoglobin 25.8 pg (26-32); Mean Corpuscular Hgb Concent. 30.4 g/dl (32-36); Mean Platelet Volume 10.3 fl (7.5-11.0); Monocyte (Absolute #) 0.78 (0.0-1.3); Monocytes % 5.5 % (0.0-12.0); Neutrophil % 89.1 % (36.0-66.0); Platelet Count 619 K/mm3 (150-450); Red Blood Count 4.89 M/mm3 (4.1-5.6); Red Cell Distribution Width 14.8 % (11.5-14.0); White Blood Count 14.2 K/mm3 (4.0-10.5)
[2020-12-05 12:58] LABS: ALBUMIN 3.7 g/dL (3.5-5.0); ALKALINE PHOSPHATASE 95 U/L (38-126); ANION GAP 15.6 MEQ/L (5-15); BLOOD UREA NITROGEN 24 mg/dL (9-20); CHLORIDE 99 mmol/L (98-107); Calcium 9.5 mg/dL (8.4-10.2); Carbon Dioxide 23 mmol/L (22-30); Creatinine 1 0.97 mg/dL (0.66-1.25); EST GLOMERULAR FILTRATION RATE > 60.0 ML/MIN; Glucose 172 mg/dL (74-106); LIPASE 65 U/L (23-300); NT PRO BNP 336 pg/mL (0-1800); Potassium 4.6 mmol/L (3.5-5.1); SGOT/AST 29 U/L (17-59); SGPT/ALT 18 U/L (0-50); SODIUM 133 mmol/L (137-145); Total Protein 7.5 g/dL (6.3-8.2)
[2020-12-05] MEDS ORDERED: Zosyn INJ 4.5 GM in Sodium Chloride 100ML MINI-BAG PLUS 100 ML IV ONE (13:08)
--- NOTE | 2020-12-05 14:30 | XRAY ---
Indication: Vomiting. Multiple contiguous axial images obtained through the head without contrast. Comparison: August 19, 2019. Again age-appropriate global atrophy, mild periventricular degenerative micro-ischemia bilaterally, and small right parietal lobe infarct. Posterior parietal lobe demonstrates new moderate sized remote appearing infarcts bilaterally. Smaller new remote appearing left frontal lobe infarct. No acute intracranial hemorrhage, hydrocephalus, or mass effect. Fourth ventricle is midline. Bony calvarium intact. Stable complete opacification left maxillary sinus. Mastoid air cells are clear. Impression: 1. New remote-appearing multifocal bilateral infarcts as detailed. 2. Again atrophy, degenerative micro-ischemia, small right parietal infarct, and left maxillary sinus disease. 3. No acute intracranial abnormalities.
--- NOTE | 2020-12-05 14:39 | XRAY ---
Indication: Pneumonia. History lymphoma. Multiple contiguous axial images obtained through the chest using 100 cc Isovue 370 contrast. Comparison: October 22, 2019. Lungs again demonstrates diffuse pulmonary emphysema and scattered versus/scarring. Left upper lobe demonstrates new 4.0 x 5.2 x 5.1 cm subpleural masslike opacity with spiculated margins and mild pleural thickening worrisome for malignancy. Elsewhere mild bilateral dependent atelectasis. No effusion. Heart is not enlarged. [place] of the left ventricle chamber again demonstrates a 1.2 by 1.9 cm mass. Aorta remains mildly calcified without aneurysm/dissection. Slightly enlarging left suprahilar node measuring 1.2 x 1.5 cm, previously 1.0 x 1.1 cm. Previous bilateral axillary lymphadenopathy have all diminished in size, largest on the left measuring 1 x 1.4 cm. New small hiatal hernia. Bony thorax intact again with osteopenia and flowing osteophytes throughout the spine. CT abdomen/pelvis reported separately. Impression: 1. New suspicious left upper lobe masslike opacity as detailed worrisome for malignancy. 2. Prominent left suprahilar node possibly metastatic versus residual/recurrent lymphoma. Previous bilateral axillary lymphadenopathy have all diminished in size. 3. New small hiatal hernia. 4. Stable left ventricle chamber soft tissue mass. Again echocardiogram may yield further information if not already performed. 5. Again chronic findings including pulmonary emphysema, scattered fibrosis/scarring, and chronic bony findings.
--- NOTE | 2020-12-05 14:47 | XRAY ---
Indication: Vomiting. Abdominal pain. History of lymphoma. Multiple contiguous axial images obtained through the abdomen and pelvis using 100 cc Isovue 370 contrast. Comparison: July 01, 2020. CT chest reported separately. Noncontrasted stomach and bowel loops appear nonobstructed with normal appendix. There is again mild diffuse scattered colonic fecal debris throughout, less than before. Again previous cholecystectomy. No free fluid/air. The liver again demonstrates two 1 cm cysts. Both kidneys enhance and excrete with stable bilateral renal cortical scarring. Stable enlarged prostate gland impresses on the base of the bladder. Remaining liver, pancreas, spleen, adrenal glands, kidneys, ureters, and bladder are unremarkable. There remains moderate aortoiliac calcifications with 2.8 cm distal aortic aneurysm. No pathologic retroperitoneal lymphadenopathy. Osseous structures intact again with mild osteopenia and mild degenerative changes throughout the spine. No ventral or inguinal hernias. Impression: 1. 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 2. Remaining CT abdomen/pelvis with contrast exam is negative.
[2020-12-05] MEDS ORDERED: Sodium Chloride 100ML MINI-BAG PLUS 100 ML IV ONE (15:17)
[2020-12-05] MEDS ORDERED: Zosyn INJ IV ONE (15:17)
[2020-12-05 15:19] LABS: INFLUENZA A NEGATIVE (NEGATIVE); INFLUENZA B NEGATIVE (NEGATIVE); RESPIRATORY SYNCTIAL VIRUS NEGATIVE (Negative)
[2020-12-05] MEDS ORDERED: ZOFRAN ODT 4 MG PO PRN (17:06)
[2020-12-05] MEDS ORDERED: MEDICATION INTERVENTION MC SCH (17:15)
[2020-12-05] MEDS: ZOCOR 20MG PO SCH (21:25)
[2020-12-05] MEDS: Protonix 40MG Tablet PO SCH (21:25)
[2020-12-05] MEDS: HYDROCODONE-ACETAMIN 10-325 MG PO SCH (21:25)
[2020-12-05] MEDS: Lantus Insulin SQ SCH (21:26)
[2020-12-05 21:41] LABS: Appearance CLEAR (CLEAR); Bacteria RARE /HPF (NEGATIVE); Bilirubin NEGATIVE (NEGATIVE); Blood NEGATIVE Ery/ul (0-5); Glucose >=500 mg/dL (NEGATIVE); Ketones NEGATIVE (NEGATIVE); Leukocyte Esterase SMALL (NEGATIVE); Mucus SLIGHT /HPF (NEGATIVE); Nitrite NEGATIVE (NEGATIVE); Protein,Urine Dip NEGATIVE (Negative); Specific Gravity 1.041 (1.005-1.025); Urobilinogen 4 mg/dL (0-1)
[2020-12-05] MEDS ORDERED: LIPITOR 40MG PO SCH (22:00)
[2020-12-05] MEDS ORDERED: NON-FORMULARY ITEM (Insulin Detemir [Levemir] 20 UNIT) SQ SCH (22:00)
[2020-12-06 06:31] LABS: Absolute Neutrophil Ct (ANC) 7.83 (1.4-6.9); BASOPHIL % 0.3 % (0.0-0.4); Basophil (Absolute #) 0.03 (0-0.4); Eosinophil % 0.8 % (0.00-5.0); Eosinophil (Absolute #) 0.08 (0-0.5); Hematocrit 37.9 % (42-50); Hemoglobin 11.3 gm/dl (12.5-18.0); Lymphocyte (Absolute #) 0.84 (1.0-4.6); Lymphocytes % 8.7 % (24.0-44.0); Mean Cell Volume 85.9 fl (78-100); Mean Corpuscular Hemoglobin 25.6 pg (26-32); Mean Corpuscular Hgb Concent. 29.8 g/dl (32-36); Mean Platelet Volume 9.9 fl (7.5-11.0); Monocyte (Absolute #) 0.87 (0.0-1.3); Neutrophil % 81.2 % (36.0-66.0); Platelet Count 507 K/mm3 (150-450); Red Blood Count 4.41 M/mm3 (4.1-5.6); Red Cell Distribution Width 14.7 % (11.5-14.0); White Blood Count 9.7 K/mm3 (4.0-10.5)
[2020-12-06 06:54] LABS: ALBUMIN 3.1 g/dL (3.5-5.0); ALKALINE PHOSPHATASE 79 U/L (38-126); ANION GAP 11.4 MEQ/L (5-15); BLOOD UREA NITROGEN 21 mg/dL (9-20); CHLORIDE 100 mmol/L (98-107); Calcium 8.9 mg/dL (8.4-10.2); Carbon Dioxide 26 mmol/L (22-30); Creatinine 1 0.94 mg/dL (0.66-1.25); EST GLOMERULAR FILTRATION RATE > 60.0 ML/MIN; Glucose 193 mg/dL (74-106); Potassium 4.4 mmol/L (3.5-5.1); SGOT/AST 22 U/L (17-59); SGPT/ALT 16 U/L (0-50); SODIUM 133 mmol/L (137-145); Total Protein 6.5 g/dL (6.3-8.2)
[2020-12-06] MEDS: PLAVIX 75 MG Tablet PO SCH (09:10)
[2020-12-06] MEDS: ECOTRIN 81 MG PO SCH (09:10)
[2020-12-06] MEDS: HYDROCODONE-ACETAMIN 10-325 MG PO SCH ×2 (09:11→21:49)
[2020-12-06] MEDS: Protonix 40MG Tablet PO SCH ×2 (09:11→21:49)
[2020-12-06] MEDS: Lantus Insulin SQ SCH ×2 (09:11→21:49)
[2020-12-06] MEDS: PROZAC 10 MG PO SCH (09:12)
--- NOTE | 2020-12-06 09:50 | PCM.NOTE ---
Date and Time: 12/06/20 0913 Subjective Assessment: 85 yr old male seen and examined this am. Patient reports his L shoulder pain has improved but is still present He reports he has been having the nausea with vomiting for months. He also reports decreased appetite and recent 20 pound weight loss. Patient reports his last infusion tx for cancer was in aug and that his other ones have been delayed for various reasons. Patient reports that his vomitus has consisted of yellow mucous. He denies coughing. He reports he used to have PT at home and other home health services. No other concerns this am. - Review of Systems Constitutional: Weight Loss, No Fever Eyes: No Symptoms Ears, Nose, & Throat: Other (Patient reports previous R sided lymph node removal surgery) Respiratory: No Cough, No Short Of Breath, No Wheezing Cardiac: No Chest Pain, No Edema Abdominal/Gastrointestinal: Nausea, Vomiting, Appetite Changes, No Abdominal Pain, No Diarrhea, No Constipation Genitourinary Symptoms: No Symptoms Musculoskeletal: Joint Pain (L shoulder pain and decreased ROM) Skin: No Symptoms Neurological: No Headache Psychological: No Alcohol Abuse, No Drug Abuse, No Anxiety, No Depression Objective Exam General Appearance: mild distress Neurologic Exam: alert, oriented x 3, cooperative, normal mood/affect, motor deficits (left sided weakness), No disoriented, No confusion, No agitation, No depressed mood/affect Skin Exam: warm, dry, No normal color (slightly ashen in color), No rash Eye Exam: eyes nml inspection, No scleral icterus Ears, Nose, Throat Exam: moist mucous membranes Neck Exam: No normal inspection (hx of R sided lymph node removal), No carotid bruit Respiratory Exam: normal breath sounds, lungs clear, No respiratory distress, No diminished breath sounds, No crackles/rales, No wheezing Cardiovascular Exam: regular rate/rhythm, normal heart sounds, No murmur, No friction rub, No gallop Gastrointestinal/Abdomen Exam: soft, normal bowel sounds, No tenderness, No distention, No mass, No guarding Extremity Exam: limited range of motion (left shoulder), other (Patient has swelling in left axillae lateral chest area) Back Exam: other (Patient has lesion on Left upper back area approx 2 cm in size.) Male Genitalia Exam: deferred Rectal Exam: deferred OBJECTIVE DATA Vital Signs: Vital Signs - 24 hr Temp Pulse Resp BP Pulse Ox 12/06/20 07:55 93 L 12/06/20 06:00 97.7 F 67 18 120/66 97 12/06/20 04:00 64 18 12/05/20 23:56 98.6 F 64 17 107/58 95 12/05/20 20:28 98 12/05/20 19:51 97.6 F 70 18 118/53 98 12/05/20 16:51 97.9 F 73 96/42 96 12/05/20 16:37 96 12/05/20 16:17 97.9 F 73 18 96/42 90 L 12/05/20 16:16 97.9 F 73 18 96/42 90 L 12/05/20 16:05 68 16 127/68 98 12/05/20 13:39 116/68 12/05/20 11:55 98.0 F 99 H 18 125/76 94 L Oxygen-Last 24 hours Oxygen Flowrate (L/min)-RT 2 Pain Assessment - Last Documented Pain Intensity 2 Intake and Output: Intake & Output 12/03/20 12/04/20 12/05/20 12/06/20 11:59 11:59 11:59 11:59 Intake Total 960 Output Total 1325 Balance -365 Weight 68.6 kg Lab Results: Lab Results-Last 24 Hours 12/05/20 12/05/20 12/05/20 Range/Units 12:38 12:38 12:38 WBC 14.2 H (4.0-10.5) K/mm3 RBC 4.89 (4.1-5.6) M/mm3 Hgb 12.6 (12.5-18.0) gm/dl Hct 41.5 L (42-50) % MCV 84.9 (78-100) fl MCH 25.8 L (26-32) pg MCHC 30.4 L (32-36) g/dl RDW 14.8 H (11.5-14.0) % Plt Count 619 H (150-450) K/mm3 MPV 10.3 (7.5-11.0) fl Gran % 89.1 H (36.0-66.0) % Eos # (Auto) 0.01 (0-0.5) Absolute Lymphs (auto) 0.72 L (1.0-4.6) Absolute Monos (auto) 0.78 (0.0-1.3) Lymphocytes % 5.1 L (24.0-44.0) % Monocytes % 5.5 (0.0-12.0) % Eosinophils % 0.1 (0.00-5.0) % Basophils % 0.2 (0.0-0.4) % Absolute Granulocytes 12.67 H (1.4-6.9) Basophils # 0.03 (0-0.4) Sodium 133 L (137-145) mmol/L Potassium 4.6 (3.5-5.1) mmol/L Chloride 99 (98-107) mmol/L Carbon Dioxide 23 (22-30) mmol/L Anion Gap 15.6 H (5-15) MEQ/L BUN 24 H (9-20) mg/dL Creatinine 0.97 (0.66-1.25) mg/dL Estimated GFR > 60.0 ML/MIN Glucose 172 H (74-106) mg/dL POC Glucometer (74 to 106) mg/dL Hemoglobin A1c (4.5-6.0) % Lactic Acid (0.4-2.0) Calcium 9.5 (8.4-10.2) mg/dL Total Bilirubin 1.00 (0.2-1.3) mg/dL AST 29 (17-59) U/L ALT 18 (0-50) U/L Alkaline Phosphatase 95 (38-126) U/L Troponin I < 0.012 (0.000-0.034) ng/mL NT-Pro-B Natriuret Pep 336 (0-1800) pg/mL Serum Total Protein 7.5 (6.3-8.2) g/dL Albumin 3.7 (3.5-5.0) g/dL Lipase 65 (23-300) U/L Urine Color (YELLOW) Urine Appearance (CLEAR) Urine pH (5-6) Ur Specific [place] (1.005-1.025) Urine Protein (Negative) Urine Ketones (NEGATIVE) Urine Blood (0-5) García/ul Urine Nitrite (NEGATIVE) Urine Bilirubin (NEGATIVE) Urine Urobilinogen (0-1) mg/dL Ur Leukocyte Esterase (NEGATIVE) Urine WBC (Auto) (0-5) /HPF Urine RBC (Auto) (0-2) /HPF U Epithel Cells (Auto) (FEW) /HPF Urine Bacteria (Auto) (NEGATIVE) /HPF Urine Mucus (Auto) (NEGATIVE) /HPF Urine Culture Reflexed (NO) Urine Glucose (NEGATIVE) mg/dL Influenza Type A Ag (NEGATIVE) Influenza Type B Ag (NEGATIVE) RSV (PCR) (Negative) SARS-CoV-2 (PCR) (NEGATIVE) 12/05/20 12/05/20 12/05/20 Range/Units 12:38 14:32 15:21 WBC (4.0-10.5) K/mm3 RBC (4.1-5.6) M/mm3 Hgb (12.5-18.0) gm/dl Hct (42-50) % MCV (78-100) fl MCH (26-32) pg MCHC (32-36) g/dl RDW (11.5-14.0) % Plt Count (150-450) K/mm3 MPV (7.5-11.0) fl Gran % (36.0-66.0) % Eos # (Auto) (0-0.5) Absolute Lymphs (auto) (1.0-4.6) Absolute Monos (auto) (0.0-1.3) Lymphocytes % (24.0-44.0) % Monocytes % (0.0-12.0) % Eosinophils % (0.00-5.0) % Basophils % (0.0-0.4) % Absolute Granulocytes (1.4-6.9) Basophils # (0-0.4) Sodium (137-145) mmol/L Potassium (3.5-5.1) mmol/L Chloride (98-107) mmol/L Carbon Dioxide (22-30) mmol/L Anion Gap (5-15) MEQ/L BUN (9-20) mg/dL Creatinine (0.66-1.25) mg/dL Estimated GFR ML/MIN Glucose (74-106) mg/dL POC Glucometer (74 to 106) mg/dL Hemoglobin A1c 7.09 H (4.5-6.0) % Lactic Acid (0.4-2.0) Calcium (8.4-10.2) mg/dL Total Bilirubin (0.2-1.3) mg/dL AST (17-59) U/L ALT (0-50) U/L Alkaline Phosphatase (38-126) U/L Troponin I < 0.012 (0.000-0.034) ng/mL NT-Pro-B Natriuret Pep (0-1800) pg/mL Serum Total Protein (6.3-8.2) g/dL Albumin (3.5-5.0) g/dL Lipase (23-300) U/L Urine Color (YELLOW) Urine Appearance (CLEAR) Urine pH (5-6) Ur Specific [place] (1.005-1.025) Urine Protein (Negative) Urine Ketones (NEGATIVE) Urine Blood (0-5) García/ul Urine Nitrite (NEGATIVE) Urine Bilirubin (NEGATIVE) Urine Urobilinogen (0-1) mg/dL Ur Leukocyte Esterase (NEGATIVE) Urine WBC (Auto) (0-5) /HPF Urine RBC (Auto) (0-2) /HPF U Epithel Cells (Auto) (FEW) /HPF Urine Bacteria (Auto) (NEGATIVE) /HPF Urine Mucus (Auto) (NEGATIVE) /HPF Urine Culture Reflexed (NO) Urine Glucose (NEGATIVE) mg/dL Influenza Type A Ag NEGATIVE (NEGATIVE) Influenza Type B Ag NEGATIVE (NEGATIVE) RSV (PCR) NEGATIVE (Negative) SARS-CoV-2 (PCR) NEGATIVE (NEGATIVE) 12/05/20 12/05/20 12/05/20 Range/Units 18:37 20:20 21:30 WBC (4.0-10.5) K/mm3 RBC (4.1-5.6) M/mm3 Hgb (12.5-18.0) gm/dl Hct (42-50) % MCV (78-100) fl MCH (26-32) pg MCHC (32-36) g/dl RDW (11.5-14.0) % Plt Count (150-450) K/mm3 MPV (7.5-11.0) fl Gran % (36.0-66.0) % Eos # (Auto) (0-0.5) Absolute Lymphs (auto) (1.0-4.6) Absolute Monos (auto) (0.0-1.3) Lymphocytes % (24.0-44.0) % Monocytes % (0.0-12.0) % Eosinophils % (0.00-5.0) % Basophils % (0.0-0.4) % Absolute Granulocytes (1.4-6.9) Basophils # (0-0.4) Sodium (137-145) mmol/L Potassium (3.5-5.1) mmol/L Chloride (98-107) mmol/L Carbon Dioxide (22-30) mmol/L Anion Gap (5-15) MEQ/L BUN (9-20) mg/dL Creatinine (0.66-1.25) mg/dL Estimated GFR ML/MIN Glucose (74-106) mg/dL POC Glucometer 149 H (74 to 106) mg/dL Hemoglobin A1c (4.5-6.0) % Lactic Acid (0.4-2.0) Calcium (8.4-10.2) mg/dL Total Bilirubin (0.2-1.3) mg/dL AST (17-59) U/L ALT (0-50) U/L Alkaline Phosphatase (38-126) U/L Troponin I < 0.012 (0.000-0.034) ng/mL NT-Pro-B Natriuret Pep (0-1800) pg/mL Serum Total Protein (6.3-8.2) g/dL Albumin (3.5-5.0) g/dL Lipase (23-300) U/L Urine Color YELLOW (YELLOW) Urine Appearance CLEAR (CLEAR) Urine pH 5.0 (5-6) Ur Specific [place] 1.041 (1.005-1.025) Urine Protein NEGATIVE (Negative) Urine Ketones NEGATIVE (NEGATIVE) Urine Blood NEGATIVE (0-5) García/ul Urine Nitrite NEGATIVE (NEGATIVE) Urine Bilirubin NEGATIVE (NEGATIVE) Urine Urobilinogen 4 (0-1) mg/dL Ur Leukocyte Esterase SMALL (NEGATIVE) Urine WBC (Auto) 11-15 (0-5) /HPF Urine RBC (Auto) 6-10 (0-2) /HPF U Epithel Cells (Auto) NONE (FEW) /HPF Urine Bacteria (Auto) RARE (NEGATIVE) /HPF Urine Mucus (Auto) SLIGHT (NEGATIVE) /HPF Urine Culture Reflexed YES (NO) Urine Glucose >=500 (NEGATIVE) mg/dL Influenza Type A Ag (NEGATIVE) Influenza Type B Ag (NEGATIVE) RSV (PCR) (Negative) SARS-CoV-2 (PCR) (NEGATIVE) 12/06/20 12/06/20 12/06/20 Range/Units 05:53 05:53 05:58 WBC 9.7 (4.0-10.5) K/mm3 RBC 4.41 (4.1-5.6) M/mm3 Hgb 11.3 L (12.5-18.0) gm/dl Hct 37.9 L (42-50) % MCV 85.9 (78-100) fl MCH 25.6 L (26-32) pg MCHC 29.8 L (32-36) g/dl RDW 14.7 H (11.5-14.0) % Plt Count 507 H (150-450) K/mm3 MPV 9.9 (7.5-11.0) fl Gran % 81.2 H (36.0-66.0) % Eos # (Auto) 0.08 (0-0.5) Absolute Lymphs (auto) 0.84 L (1.0-4.6) Absolute Monos (auto) 0.87 (0.0-1.3) Lymphocytes % 8.7 L (24.0-44.0) % Monocytes % 9.0 (0.0-12.0) % Eosinophils % 0.8 (0.00-5.0) % Basophils % 0.3 (0.0-0.4) % Absolute Granulocytes 7.83 H (1.4-6.9) Basophils # 0.03 (0-0.4) Sodium 133 L (137-145) mmol/L Potassium 4.4 (3.5-5.1) mmol/L Chloride 100 (98-107) mmol/L Carbon Dioxide 26 (22-30) mmol/L Anion Gap 11.4 (5-15) MEQ/L BUN 21 H (9-20) mg/dL Creatinine 0.94 (0.66-1.25) mg/dL Estimated GFR > 60.0 ML/MIN Glucose 193 H (74-106) mg/dL POC Glucometer (74 to 106) mg/dL Hemoglobin A1c (4.5-6.0) % Lactic Acid 1.1 (0.4-2.0) Calcium 8.9 (8.4-10.2) mg/dL Total Bilirubin 0.40 (0.2-1.3) mg/dL AST 22 (17-59) U/L ALT 16 (0-50) U/L Alkaline Phosphatase 79 (38-126) U/L Troponin I (0.000-0.034) ng/mL NT-Pro-B Natriuret Pep (0-1800) pg/mL Serum Total Protein 6.5 (6.3-8.2) g/dL Albumin 3.1 L (3.5-5.0) g/dL Lipase (23-300) U/L Urine Color (YELLOW) Urine Appearance (CLEAR) Urine pH (5-6) Ur Specific [place] (1.005-1.025) Urine Protein (Negative) Urine Ketones (NEGATIVE) Urine Blood (0-5) García/ul Urine Nitrite (NEGATIVE) Urine Bilirubin (NEGATIVE) Urine Urobilinogen (0-1) mg/dL Ur Leukocyte Esterase (NEGATIVE) Urine WBC (Auto) (0-5) /HPF Urine RBC (Auto) (0-2) /HPF U Epithel Cells (Auto) (FEW) /HPF Urine Bacteria (Auto) (NEGATIVE) /HPF Urine Mucus (Auto) (NEGATIVE) /HPF Urine Culture Reflexed (NO) Urine Glucose (NEGATIVE) mg/dL Influenza Type A Ag (NEGATIVE) Influenza Type B Ag (NEGATIVE) RSV (PCR) (Negative) SARS-CoV-2 (PCR) (NEGATIVE) 12/06/20 Range/Units 06:43 WBC (4.0-10.5) K/mm3 RBC (4.1-5.6) M/mm3 Hgb (12.5-18.0) gm/dl Hct (42-50) % MCV (78-100) fl MCH (26-32) pg MCHC (32-36) g/dl RDW (11.5-14.0) % Plt Count (150-450) K/mm3 MPV (7.5-11.0) fl Gran % (36.0-66.0) % Eos # (Auto) (0-0.5) Absolute Lymphs (auto) (1.0-4.6) Absolute Monos (auto) (0.0-1.3) Lymphocytes % (24.0-44.0) % Monocytes % (0.0-12.0) % Eosinophils % (0.00-5.0) % Basophils % (0.0-0.4) % Absolute Granulocytes (1.4-6.9) Basophils # (0-0.4) Sodium (137-145) mmol/L Potassium (3.5-5.1) mmol/L Chloride (98-107) mmol/L Carbon Dioxide (22-30) mmol/L Anion Gap (5-15) MEQ/L BUN (9-20) mg/dL Creatinine (0.66-1.25) mg/dL Estimated GFR ML/MIN Glucose (74-106) mg/dL POC Glucometer 205 H (74 to 106) mg/dL Hemoglobin A1c (4.5-6.0) % Lactic Acid (0.4-2.0) Calcium (8.4-10.2) mg/dL Total Bilirubin (0.2-1.3) mg/dL AST (17-59) U/L ALT (0-50) U/L Alkaline Phosphatase (38-126) U/L Troponin I (0.000-0.034) ng/mL NT-Pro-B Natriuret Pep (0-1800) pg/mL Serum Total Protein (6.3-8.2) g/dL Albumin (3.5-5.0) g/dL Lipase (23-300) U/L Urine Color (YELLOW) Urine Appearance (CLEAR) Urine pH (5-6) Ur Specific [place] (1.005-1.025) Urine Protein (Negative) Urine Ketones (NEGATIVE) Urine Blood (0-5) García/ul Urine Nitrite (NEGATIVE) Urine Bilirubin (NEGATIVE) Urine Urobilinogen (0-1) mg/dL Ur Leukocyte Esterase (NEGATIVE) Urine WBC (Auto) (0-5) /HPF Urine RBC (Auto) (0-2) /HPF U Epithel Cells (Auto) (FEW) /HPF Urine Bacteria (Auto) (NEGATIVE) /HPF Urine Mucus (Auto) (NEGATIVE) /HPF Urine Culture Reflexed (NO) Urine Glucose (NEGATIVE) mg/dL Influenza Type A Ag (NEGATIVE) Influenza Type B Ag (NEGATIVE) RSV (PCR) (Negative) SARS-CoV-2 (PCR) (NEGATIVE) Radiology Exams: Radiology Procedures Category Date Time Status ABDOMEN AND PELVIS W CONTRAST [CT] Stat Exams 12/05/20 13:03 Completed CHEST 1 VIEW (PORTABLE) Stat Exams 12/05/20 12:16 Completed CHEST WITH CONTRAST [CT] Stat Exams 12/05/20 13:06 Completed HEAD WITHOUT CONTRAST [CT] Stat Exams 12/05/20 13:37 Completed Assessment/Plan (1) Dehydration Current Visit: Yes Status: Acute Assessment & Plan: Patient has reported chronic vomiting over the past couple of months and describes the vomitus as yellow mucous. Patient was started on IV fluids and has improved. He denies any vomiting since admission. He had elevated platelets which may have been an reactive inflammatory marker. Code(s): E86.0 - DEHYDRATION (2) Elevated BUN Current Visit: Yes Status: Acute Assessment & Plan: Likely related to acute dehydration. Has trended down. Will continue to monitor Code(s): R79.9 - ABNORMAL FINDING OF BLOOD CHEMISTRY, UNSPECIFIED (3) Lung mass Current Visit: Yes Status: Acute Assessment & Plan: From the description on CT scan the mass is suspicious for cancer along with a concerning lymph node and hx of lymphoma possibly a mets picture. Patient reports he has not had his treatments for cancer since aug. He will need to follow up with Dr Horowitz as outpatient. He will likely need PET scan and biopsy of lung mass and lymph node. Code(s): R91.8 - OTHER NONSPECIFIC ABNORMAL FINDING OF LUNG FIELD (4) Nausea and vomiting Current Visit: Yes Status: Acute Assessment & Plan: Patient report improvement following hospital admission. Code(s): R11.2 - NAUSEA WITH VOMITING, UNSPECIFIED (5) Thrombocytosis Current Visit: Yes Status: Acute Assessment & Plan: Trending down. Could be falsely elevated due to dehydration. Will continue to trend. (6) Cardiac mass Current Visit: Yes Status: Acute Assessment & Plan: Noted on CT imaging. Patient may require TTE or LIVIA for further evaluation. Code(s): I51.89 - OTHER ILL-DEFINED HEART DISEASES (7) Diabetes Current Visit: Yes Status: Acute Assessment & Plan: Patient is having BS AC/HS and is on long acting. He was placed on moderate sliding scale as well. Code(s): E11.9 - TYPE 2 DIABETES MELLITUS WITHOUT COMPLICATIONS (8) Left shoulder pain Current Visit: Yes Status: Acute Assessment & Plan: Patient has L shoulder pain. He reports that he has swelling of the armpit area as well. He has decreased ROM. He will need to be evaluated for PT and likely require PT as outpatient. Code(s): M25.512 - PAIN IN LEFT SHOULDER
[2020-12-06] MEDS ORDERED: NON-FORMULARY ITEM (Fluoxetine Hcl [Fluoxetine Hcl] 10 mg) PO SCH (10:00)
[2020-12-06] MEDS ORDERED: NON-FORMULARY ITEM (Canagliflozin [Invokana] 100 MG) PO SCH (10:00)
[2020-12-06] MEDS: HUMALOG SQ PRN (12:25)
[2020-12-06] MEDS: ZOCOR 20MG PO SCH (21:49)
[2020-12-07] MEDS: HYDROCODONE-ACETAMIN 10-325 MG PO SCH ×2 (08:07→21:41)
[2020-12-07] MEDS: Protonix 40MG Tablet PO SCH ×2 (09:17→21:41)
[2020-12-07] MEDS: PLAVIX 75 MG Tablet PO SCH (09:17)
[2020-12-07] MEDS: ECOTRIN 81 MG PO SCH (09:17)
[2020-12-07] MEDS: PROZAC 10 MG PO SCH (09:18)
[2020-12-07] MEDS: Lantus Insulin SQ SCH ×2 (09:21→21:41)
[2020-12-07] MEDS ORDERED: Miralax Powder 17GM PACKET PO SCH (10:00)
[2020-12-07 10:06] LABS: Absolute Neutrophil Ct (ANC) 7.18 (1.4-6.9); BASOPHIL % 0.2 % (0.0-0.4); Basophil (Absolute #) 0.02 (0-0.4); Eosinophil % 0.7 % (0.00-5.0); Eosinophil (Absolute #) 0.06 (0-0.5); Hematocrit 37.6 % (42-50); Hemoglobin 11.2 gm/dl (12.5-18.0); Lymphocyte (Absolute #) 0.94 (1.0-4.6); Lymphocytes % 10.6 % (24.0-44.0); Mean Cell Volume 86.2 fl (78-100); Mean Corpuscular Hemoglobin 25.7 pg (26-32); Mean Corpuscular Hgb Concent. 29.8 g/dl (32-36); Mean Platelet Volume 9.9 fl (7.5-11.0); Monocyte (Absolute #) 0.65 (0.0-1.3); Monocytes % 7.3 % (0.0-12.0); Neutrophil % 81.2 % (36.0-66.0); Platelet Count 460 K/mm3 (150-450); Red Blood Count 4.36 M/mm3 (4.1-5.6); Red Cell Distribution Width 14.6 % (11.5-14.0); White Blood Count 8.9 K/mm3 (4.0-10.5)
[2020-12-07 10:10] LABS: ALBUMIN 3.2 g/dL (3.5-5.0); ALKALINE PHOSPHATASE 84 U/L (38-126); ANION GAP 10.6 MEQ/L (5-15); BLOOD UREA NITROGEN 16 mg/dL (9-20); CHLORIDE 96 mmol/L (98-107); Calcium 8.9 mg/dL (8.4-10.2); Carbon Dioxide 30 mmol/L (22-30); Creatinine 1 0.85 mg/dL (0.66-1.25); EST GLOMERULAR FILTRATION RATE > 60.0 ML/MIN; Glucose 220 mg/dL (74-106); Potassium 4.9 mmol/L (3.5-5.1); SGOT/AST 17 U/L (17-59); SGPT/ALT 16 U/L (0-50); SODIUM 131 mmol/L (137-145); Total Protein 6.4 g/dL (6.3-8.2)
[2020-12-07] MEDS: Miralax Powder 17GM PACKET PO PRN (10:33)
[2020-12-07] MEDS: HUMALOG SQ PRN (16:27)
[2020-12-07] MEDS: ZOCOR 20MG PO SCH (21:41)
--- NOTE | 2020-12-07 22:04 | PCM.NOTE ---
Date and Time: 12/07/202152 Subjective Assessment: 85 yr old male seen and examined this am. Patient reports he continues to have L shoulder pain. He reports his pain is increased today. He reports nausea and constipation and a decreased appetite today. - Review of Systems Constitutional: No Symptoms Eyes: No Symptoms Ears, Nose, & Throat: No Symptoms Respiratory: No Cough, No Short Of Breath Cardiac: No Chest Pain, No Edema Abdominal/Gastrointestinal: Abdominal Pain, Nausea, Constipation, Appetite Changes, No Vomiting, No Diarrhea Genitourinary Symptoms: No Symptoms Musculoskeletal: Other (L shoulder axillae and lateral chestwall pain ) Neurological: No Headache Psychological: No Symptoms Objective Exam General Appearance: mild distress, other (Patient was resting in bed.) Neurologic Exam: alert, oriented x 3, cooperative, normal mood/affect, No confusion, No agitation Skin Exam: warm, dry, No normal color, No rash ([place] color) Eye Exam: eyes nml inspection, No scleral icterus Ears, Nose, Throat Exam: moist mucous membranes Neck Exam: other (Previous R side lymph node removal) Respiratory Exam: normal breath sounds, chest tenderness (left lateral/axillae area with swelling), lungs clear, No respiratory distress, No diminished breath sounds, No crackles/rales, No rhonchi, No wheezing Cardiovascular Exam: regular rate/rhythm, normal heart sounds, No murmur, No friction rub, No gallop Gastrointestinal/Abdomen Exam: soft, normal bowel sounds, No tenderness, No distention, No mass Extremity Exam: other (Decreased ROM L shoulder with tenderness to palpation in axillae area), No normal range of motion Male Genitalia Exam: deferred Rectal Exam: deferred OBJECTIVE DATA Vital Signs: Vital Signs - 24 hr Temp Pulse Resp BP Pulse Ox 12/07/20 19:57 93 L 12/07/20 19:52 98.0 F 69 17 90/52 93 L 12/07/20 16:00 97.4 F 68 16 109/52 94 L 12/07/20 12:00 98.2 F 68 16 102/47 94 L 12/07/20 11:26 95 12/07/20 07:39 98.2 F 71 16 149/77 94 L 12/07/20 03:36 97.6 F 70 18 114/57 93 L 12/07/20 00:00 98.7 F 83 16 90/50 92 L Pain Assessment - Last Documented Pain Intensity 0 Intake and Output: Intake & Output 12/05/20 12/06/20 12/07/20 12/08/20 11:59 11:59 11:59 11:59 Intake Total 960 1912 580 Output Total 1328 1182 620 Balance -365 -13 -40 Weight 68.6 kg Lab Results: Lab Results-Last 24 Hours 12/07/20 12/07/20 12/07/20 Range/Units 07:12 09:56 09:56 WBC 8.9 (4.0-10.5) K/mm3 RBC 4.36 (4.1-5.6) M/mm3 Hgb 11.2 L (12.5-18.0) gm/dl Hct 37.6 L (42-50) % MCV 86.2 (78-100) fl MCH 25.7 L (26-32) pg MCHC 29.8 L (32-36) g/dl RDW 14.6 H (11.5-14.0) % Plt Count 460 H (150-450) K/mm3 MPV 9.9 (7.5-11.0) fl Gran % 81.2 H (36.0-66.0) % Eos # (Auto) 0.06 (0-0.5) Absolute Lymphs (auto) 0.94 L (1.0-4.6) Absolute Monos (auto) 0.65 (0.0-1.3) Lymphocytes % 10.6 L (24.0-44.0) % Monocytes % 7.3 (0.0-12.0) % Eosinophils % 0.7 (0.00-5.0) % Basophils % 0.2 (0.0-0.4) % Absolute Granulocytes 7.18 H (1.4-6.9) Basophils # 0.02 (0-0.4) Sodium 131 L (137-145) mmol/L Potassium 4.9 (3.5-5.1) mmol/L Chloride 96 L (98-107) mmol/L Carbon Dioxide 30 (22-30) mmol/L Anion Gap 10.6 (5-15) MEQ/L BUN 16 (9-20) mg/dL Creatinine 0.85 (0.66-1.25) mg/dL Estimated GFR > 60.0 ML/MIN Glucose 220 H (74-106) mg/dL POC Glucometer 169 H (74 to 106) mg/dL Calcium 8.9 (8.4-10.2) mg/dL Total Bilirubin 0.30 (0.2-1.3) mg/dL AST 17 (17-59) U/L ALT 16 (0-50) U/L Alkaline Phosphatase 84 (38-126) U/L Serum Total Protein 6.4 (6.3-8.2) g/dL Albumin 3.2 L (3.5-5.0) g/dL 12/07/20 12/07/20 12/07/20 Range/Units 11:31 15:55 20:28 WBC (4.0-10.5) K/mm3 RBC (4.1-5.6) M/mm3 Hgb (12.5-18.0) gm/dl Hct (42-50) % MCV (78-100) fl MCH (26-32) pg MCHC (32-36) g/dl RDW (11.5-14.0) % Plt Count (150-450) K/mm3 MPV (7.5-11.0) fl Gran % (36.0-66.0) % Eos # (Auto) (0-0.5) Absolute Lymphs (auto) (1.0-4.6) Absolute Monos (auto) (0.0-1.3) Lymphocytes % (24.0-44.0) % Monocytes % (0.0-12.0) % Eosinophils % (0.00-5.0) % Basophils % (0.0-0.4) % Absolute Granulocytes (1.4-6.9) Basophils # (0-0.4) Sodium (137-145) mmol/L Potassium (3.5-5.1) mmol/L Chloride (98-107) mmol/L Carbon Dioxide (22-30) mmol/L Anion Gap (5-15) MEQ/L BUN (9-20) mg/dL Creatinine (0.66-1.25) mg/dL Estimated GFR ML/MIN Glucose (74-106) mg/dL POC Glucometer TNP 199 H 157 H (74 to 106) mg/dL Calcium (8.4-10.2) mg/dL Total Bilirubin (0.2-1.3) mg/dL AST (17-59) U/L ALT (0-50) U/L Alkaline Phosphatase (38-126) U/L Serum Total Protein (6.3-8.2) g/dL Albumin (3.5-5.0) g/dL Assessment/Plan (1) Dehydration Current Visit: Yes Status: Acute Assessment & Plan: Patient was likely dehydrated from his vomiting. He symptoms have improved and his labs have improved as well. Patient has been tolerated PO well. He was complaining of nausea today. Will continue monitoring. Code(s): E86.0 - DEHYDRATION (2) Elevated BUN Current Visit: Yes Status: Acute Code(s): R79.9 - ABNORMAL FINDING OF BLOOD CHEMISTRY, UNSPECIFIED (3) Lung mass Current Visit: Yes Status: Acute Assessment & Plan: Patient will likely need PET scan and biopsy as outpatient. Patient will need to follow up with Dr Horowitz his [facility] specialist. General surgery does perform bronchoscopy and could possibly perform biopsy during this hospital stay. Code(s): R91.8 - OTHER NONSPECIFIC ABNORMAL FINDING OF LUNG FIELD (4) Nausea and vomiting Current Visit: Yes Status: Acute Assessment & Plan: Vomiting has resolved however patient is reporting some nausea today. He has decreased appetite this am. This could be related to constipation. Will monitor for additional episodes of vomiting and address as necessary. Code(s): R11.2 - NAUSEA WITH VOMITING, UNSPECIFIED (5) Thrombocytosis Current Visit: Yes Status: Acute Assessment & Plan: Platelets are trending down. They could have been elevated from dehydration and or vomiting. (6) Cardiac mass Current Visit: Yes Status: Acute Assessment & Plan: Unsure significance. Plan for echo tomorrow. May need to be evaluated with LIVIA Code(s): I51.89 - OTHER ILL-DEFINED HEART DISEASES (7) Diabetes Current Visit: Yes Status: Acute Assessment & Plan: Patient is on long acting and sliding scale. BS ACHS Code(s): E11.9 - TYPE 2 DIABETES MELLITUS WITHOUT COMPLICATIONS (8) Left shoulder pain Current Visit: Yes Status: Acute Assessment & Plan: Patient is reporting L shoulder pain and decreased ROM. Potentially metastatic process. Will get MRI tomorrow. Patient reports that the last attempt at MRI failed due to pain. He can be premedicated to tolerate procedure. Patient is getting pain medication and miralax was resumed for potential constipation related to opiod use Code(s): M25.512 - PAIN IN LEFT SHOULDER
[2020-12-08] MEDS ORDERED: HYDROCODONE-ACETAMIN 10-325 MG PO SCH (08:18)
[2020-12-08] MEDS: ECOTRIN 81 MG PO SCH (09:09)
[2020-12-08] MEDS: PLAVIX 75 MG Tablet PO SCH (09:09)
[2020-12-08] MEDS: Miralax Powder 17GM PACKET PO PRN ×2 (09:09→09:11)
[2020-12-08] MEDS: PROZAC 10 MG PO SCH (09:09)
[2020-12-08] MEDS: Lantus Insulin SQ SCH (09:09)
[2020-12-08] MEDS: Protonix 40MG Tablet PO SCH (09:09)
--- NOTE | 2020-12-08 10:46 | HP ---
CHIEF COMPLAINT: Pain to the left shoulder, nausea, vomiting, frequent falls. HISTORY OF PRESENT ILLNESS: The patient is an 85 year-old white male who has history of previous lymphoma. He has not been able to see Dr. Horowitz his oncologist over the past year due to COVID-19 and apparently has only been able to do tele-visits. The patient has been having some significant pain in his left shoulder region which I was concerned for the possibility of neuropathy from the neck. We tried to get a MRI performed but he could not sit still for the examination. The patient has been treated for pain in the meantime but at this point he has gotten to the point where he can no longer care for himself at home with the nausea and vomiting issues he has gotten dehydrated. PAST MEDICAL/SURGICAL HISTORY: Significant again for the lymphoma. He has previously had issues with diabetes mellitus type II. He has had cardiac cath done and cardiac stents placed with coronary artery disease. He had his gallbladder removed. He again had the lymphoma which has been followed by the oncologist until approximately the last whole year. HOME MEDICATIONS: Omeprazole 20 mg b.i.d., atorvastatin 20 mg at night, aspirin 81 mg a day, fluoxetine 10 mg a day. He has been on insulin for his diabetes at 20 units of Levemir b.i.d., Invokana 100 mg a day. He has been taking [place] 5/325 for the pain. ALLERGIES: MORPHINE (FAINTING). PHYSICAL EXAMINATION: The patient's vital signs on admission showed his temperature 98.0F, pulse 99, respiratory rate 18 and blood pressure 125/76. O2 saturation 94% on room air. HEENT: Normocephalic, atraumatic. The patient appears to be slightly dry in the oropharynx. NECK: Supple. No significant palpable masses are felt. EXTREMITIES: Without cyanosis, clubbing or edema. NEUROLOGIC: Alert and oriented x3. CHEST: Essentially clear. HEART: Regular rate and rhythm. ABDOMEN: Without any palpable masses. LAB DATA AND TESTS: Troponin less than 0.012. White count elevated at 14,200 with hemoglobin 12.6, PLT count 619,000. COVID test, influenza A/B and RSV were all negative. He had CT scan of the brain showing remote appearing multifocal bilateral infarcts, atrophy and micro-ischemic changes and small right parietal infarct, maxillary sinus disease. The patient's CT scan of the chest was most concerning for apical developing mass concerning for metastasis from his previous malignancy. Underlying issues otherwise potential for infection. ASSESSMENT: The patient was admitted for IV antibiotics, IV fluids, and pain management. At the present time will try to get him feeling better so we can get him up and moving again and hopefully back to his oncologist for more definitive treatment.
[2020-12-08] MEDS: HUMALOG SQ PRN (11:31)
[2020-12-08 12:06] VITALS: BP 108/59; PULSE 98; O2SAT 93
== END 2020-12-08 13:15 | disposition home health service (06) ==
LOC: ED 11:40 → MED SURG 16:06
PROVIDERS: ADMIT Family Medicine; ATTEND Family Medicine
DX: C85.99 Non-Hodgkin lymphoma, unspecified, extranodal and solid organ sites (principal); E86.0 Dehydration; E11.9 Type 2 diabetes mellitus without complications; M25.512 Pain in left shoulder; Z79.899 Other long term (current) drug therapy; Z79.4 Long term (current) use of insulin; R11.2 Nausea with vomiting, unspecified; R79.9 Abnormal finding of blood chemistry, unspecified; I51.89 Other ill-defined heart diseases; R29.6 Repeated falls; D47.3 Essential (hemorrhagic) thrombocythemia
CPT/HCPCS: 0241U; 36000; 36415; 70450; 71045; 71260; 74177; 80048; 80053; 81001; 82947; 83036; 83605; 83690; 83880; 84484; 85025; 87086; 93005; 93268; 94760; 96360; 96365; 96374; 99285; J1817; J2405; J2543; A9270-GY; G0378

== ENCOUNTER 2021-01-20 11:55 | Inpatient (IN) | payer MEDICARE ==
--- NOTE | 2021-01-20 12:21 | ERPHSYRPT ---
- History of Present Illness Time Seen by Provider: 01/20/21 12:05 Source: patient Exam Limitations: no limitations Patient Subjective Stated Complaint: Pt states "I have been in and out of here for awhile now.". Pt daughter states "We just cannot take care of him and we are working to get him into a [place] [facility] facility. He is not eating, and he is getting weaker and weaker. He was diagnosed with stage 2 lung cancer just under the left ribs and it is pushing on the ribs and causing alot of pain." Triage Nursing Assessment: Pt presented alert and oriented X 3, skin pwd pt ambulates with a slow gait, needs assistance. PT able to speak in clear full sentences pt in no apparent respiratory distress. Physician History: Patient is 85-year-old male presents to our emergency department with his daughter for evaluation of progressive weakness over the past month. Patient was diagnosed with lung cancer approximately 1 month ago. Patient is currently preparing to start chemotherapy. Daughter states that oral intake has significantly decreased. He is now having difficulty walking due to weakness. She advised that patient had a stroke about a year ago. The stroke affected his left upper extremity primarily. No associated nausea or vomiting. No diarrhea. No rash. No chest pain. Patient is experiencing some shortness of breath since his diagnosis of cancer. No acute shortness of breath at this time. Daughter states that patient's progressive weakness is making it difficult for them to adequately care for him at home. She is requesting placement at least temporarily at this time until his strength level increases. Patient's primary care doctor was notified. Patient was advised to come to our ED for evaluation of his weakness. Daughter also states that patient will be starting iron infusion as well. Timing/Duration: week(s) Severity: moderate Modifying Factors: Improves With: nothing Associated Symptoms: denies symptoms Allergies/Adverse Reactions: morphine Adverse Reaction (Verified 12/05/20 12:08) Fainting Home Medications: Omeprazole 20 mg PO BID 10/07/18 [History] Atorvastatin Calcium [Lipitor] 20 mg PO HS 10/19/18 [History] Aspirin EC 81 mg [Ecotrin 81 mg] 81 mg PO DAILY 03/06/20 [History] Fluoxetine HCl 10 mg PO DAILY 03/06/20 [History] Insulin Detemir [Levemir] 20 unit SQ BID 03/06/20 [History] Ondansetron [Ondansetron Odt] 4 mg PO TID PRN 12/05/20 [History] Canagliflozin [Invokana] 100 mg PO DAILY 01/20/21 [History] Hx Tetanus, Diphtheria Vaccination/Date Given: No Hx Influenza Vaccination/Date Given: Yes Hx Pneumococcal Vaccination/Date Given: Yes Immunizations Up to Date: Yes Travel Risk - International Travel Have you traveled outside of the country in past 3 weeks: No - Coronavirus Screening Are you exhibiting any of the following symptoms?: No Close contact with a COVID-19 positive Pt in past 14-21 Days: No - Vaccine Status Have you recieved a Covid-19 vaccination: (unknown date of vaccine) - Review of Systems Constitutional: No Symptoms, No Fever, No Chills Eyes: No Symptoms Ears, Nose, & Throat: No Symptoms Respiratory: No Symptoms, No Cough, No Dyspnea Cardiac: No Symptoms, No Chest Pain, No Edema, No Syncope Abdominal/Gastrointestinal: No Symptoms, No Abdominal Pain, No Nausea, No Vomiting, No Diarrhea Genitourinary Symptoms: No Symptoms, No Dysuria Musculoskeletal: No Symptoms, No Back Pain, No Neck Pain Skin: No Symptoms, No Rash Neurological: No Symptoms, No Dizziness, No Focal Weakness, No Sensory Changes Psychological: No Symptoms Endocrine: No Symptoms Hematologic/Lymphatic: No Symptoms Immunological/Allergic: No Symptoms All Other Systems: Reviewed and Negative - Past Medical History Pertinent Past Medical History: Yes Neurological History: No Pertinent History ENT History: No Pertinent History Cardiac History: Coronary Artery Disease, High Cholesterol Respiratory History: Lung Cancer Endocrine Medical History: Diabetes Type II Musculoskeletal History: No Pertinent History GI Medical History: No Pertinent History History: No Pertinent History Psycho-Social History: No Pertinent History Male Reproductive Disorders: No Pertinent History Other Medical History: 2 strokes, can't use left arm - Past Surgical History Past Surgical History: Yes Neuro Surgical History: Other Cardiac: Cardiac Catheterization, Cardiac Stent Respiratory: No Pertinent History Gastrointestinal: Cholecystectomy Genitourinary: No Pertinent History Musculoskeletal: No Pertinent History Male Surgical History: No Pertinent History Other Surgical History: enlarged lymph node infusion, 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 - Social History Smoking Status: Former smoker Exposure to second hand smoke: No Drug Use: none Patient Lives Alone: No - Nursing Vital Signs Nursing Vital Signs: Initial Vital Signs Temperature 97.7 F 01/20/21 12:01 Pulse Rate 108 H 01/20/21 12:01 Respiratory Rate 22 01/20/21 12:01 Blood Pressure 113/65 01/20/21 12:01 O2 Sat by Pulse Oximetry 97 01/20/21 12:01 Pain Scale Pain Intensity 4 - Physical Exam General Appearance: no apparent distress, alert, cachetic, thin, other (Patient lying in bed. He appears cachectic and weak.) Eye Exam: PERRL/EOMI, eyes nml inspection Ears, Nose, Throat Exam: normal ENT inspection, TMs normal, pharynx normal, moist mucous membranes Neck Exam: normal inspection, non-tender, supple, full range of motion Respiratory Exam: normal breath sounds, lungs clear, No respiratory distress Cardiovascular Exam: regular rate/rhythm, normal heart sounds, normal peripheral pulses Gastrointestinal/Abdomen Exam: soft, normal bowel sounds, No tenderness, No mass Back Exam: normal inspection, normal range of motion, No CVA tenderness, No vertebral tenderness Extremity Exam: normal inspection, normal range of motion, pelvis stable Neurologic Exam: alert, oriented x 3, cooperative, normal mood/affect, nml ce rebellar function, nml station & gait, sensation nml, No motor deficits Skin Exam: normal color, warm, dry, No rash Lymphatic Exam: No adenopathy SpO2 Interpretation: normal SpO2: 97 O2 Delivery: Room Air - Course Nursing assessment & vital signs reviewed: Yes EKG Interpreted by Me: RATE (99), Sinus Rhythm, NORMAL AXIS, NORMAL INTERVALS - Radiology Exams Chest X-ray Interpretation: Teleradiologist Report (Chest x-ray reveals enlarging left upper lobe mass. Osteopenia.) Ordered Tests: Active Orders 24 hr Category Date Time Status Wound Treatment Rn STAT Care 01/20/21 12:09 Active EKG-ER Only STAT Care 01/20/21 12:08 Active IV Insertion STAT Care 01/20/21 12:08 Active Pulse Oximetry (ED) STAT Care 01/20/21 12:08 Active CHEST 1 VIEW (PORTABLE) Stat Exams 01/20/21 12:09 Completed CBC W DIFF Stat Lab 01/20/21 13:00 Completed CMP Stat Lab 01/20/21 13:00 Completed MAGNESIUM Stat Lab 01/20/21 13:00 Completed Manual Differential NC Stat Lab 01/20/21 13:00 Completed TROPONIN Q3H Lab 01/20/21 13:00 Completed TROPONIN Q3H Lab 01/20/21 15:15 Received TROPONIN Q3H Lab 01/20/21 18:15 Ordered TROPONIN Q3H Lab 01/20/21 21:15 Ordered TROPONIN Q3H Lab 01/21/21 00:15 Ordered UA W/RFX UR CULTURE Stat Lab 01/20/21 13:08 Completed Transfer Order Routine Transfer 01/20/21 Ordered Medication Summary Generic Name Dose Route Start Last Admin Trade Name Freq PRN Reason Stop Dose Admin Sodium Chloride 1,000 mls @ 100 mls/hr 01/20/21 14:15 01/20/21 14:05 Sodium Chloride 0.9% 1000 Ml IV 02/19/21 14:14 100 mls/hr .Q10H SHELLY Administration Discontinued Medications Generic Name Dose Route Start Last Admin Trade Name Freq PRN Reason Stop Dose Admin Fentanyl Citrate 50 mcg 01/20/21 12:35 01/20/21 12:56 Sublimaze 100 Mcg/2 Ml IV 01/20/21 12:36 50 mcg STAT ONE Administration Fentanyl Citrate Confirm 01/20/21 12:53 Sublimaze 100 Mcg/2 Ml Administered 01/20/21 12:54 Dose 100 mcg .ROUTE .STK-MED ONE Fentanyl Citrate 50 mcg 01/20/21 13:31 01/20/21 14:01 Sublimaze 100 Mcg/2 Ml IV 01/20/21 13:32 50 mcg STAT ONE Administration Fentanyl Citrate Confirm 01/20/21 13:43 Sublimaze 100 Mcg/2 Ml Administered 01/20/21 13:44 Dose 100 mcg .ROUTE .STK-MED ONE Sodium Chloride Confirm 01/20/21 13:44 Sodium Chloride 0.9% 1000 Ml Administered 01/20/21 13:45 Dose 1,000 mls @ ud .ROUTE .STK-MED ONE Ondansetron HCl 4 mg 01/20/21 12:36 01/20/21 12:56 Zofran 4 Mg/2 Ml Vial IV 01/20/21 12:37 4 mg STAT ONE Administration Ondansetron HCl Confirm 01/20/21 12:53 Zofran 4 Mg/2 Ml Vial Administered 01/20/21 12:54 Dose 4 mg .ROUTE .STK-MED ONE Lab/Rad Data: Laboratory Result Diagrams 01/20/21 13:00 01/20/21 13:00 Laboratory Results 01/20/21 01/20/21 01/20/21 Range/Units 13:54 13:08 13:00 WBC (4.0-10.5) K/mm3 RBC (4.1-5.6) M/mm3 Hgb (12.5-18.0) gm/dl Hct (42-50) % MCV (78-100) fl MCH (26-32) pg MCHC (32-36) g/dl RDW (11.5-14.0) % Plt Count (150-450) K/mm3 MPV (7.5-11.0) fl Segmented Neutrophils (36.-66.) % Lymphocytes (Manual) (24-44) % Monocytes (Manual) (0.0-12.0) % Platelet Estimate (NORMAL) RBC Morphology Sodium (137-145) mmol/L Potassium (3.5-5.1) mmol/L Chloride (98-107) mmol/L Carbon Dioxide (22-30) mmol/L Anion Gap (5-15) MEQ/L BUN (9-20) mg/dL Creatinine (0.66-1.25) mg/dL Estimated GFR ML/MIN Glucose (74-106) mg/dL Calcium (8.4-10.2) mg/dL Magnesium (1.6-2.3) mg/dL Total Bilirubin (0.2-1.3) mg/dL AST (17-59) U/L ALT (0-50) U/L Alkaline Phosphatase (38-126) U/L Troponin I < 0.012 (0.000-0.034) ng/mL Serum Total Protein (6.3-8.2) g/dL Albumin (3.5-5.0) g/dL Urine Color YELLOW (YELLOW) Urine Appearance CLEAR (CLEAR) Urine pH 5.0 (5-6) Ur Specific [place] 1.021 (1.005-1.025) Urine Protein NEGATIVE (Negative) Urine Ketones NEGATIVE (NEGATIVE) Urine Blood MODERATE (0-5) García/ul Urine Nitrite NEGATIVE (NEGATIVE) Urine Bilirubin NEGATIVE (NEGATIVE) Urine Urobilinogen 4 (0-1) mg/dL Ur Leukocyte Esterase NEGATIVE (NEGATIVE) Urine WBC (Auto) 0-2 (0-5) /HPF Urine RBC (Auto) 51-100 (0-2) /HPF U Epithel Cells (Auto) NONE (FEW) /HPF Urine Bacteria (Auto) NONE (NEGATIVE) /HPF Urine Mucus (Auto) SLIGHT (NEGATIVE) /HPF Urine Culture Reflexed NO (NO) Urine Glucose >=500 (NEGATIVE) mg/dL Influenza Type A Ag NEGATIVE (NEGATIVE) Influenza Type B Ag NEGATIVE (NEGATIVE) RSV (PCR) NEGATIVE (Negative) SARS-CoV-2 (PCR) NEGATIVE (NEGATIVE) 01/20/21 01/20/21 Range/Units 13:00 13:00 WBC 18.2 H (4.0-10.5) K/mm3 RBC 4.46 (4.1-5.6) M/mm3 Hgb 9.8 L (12.5-18.0) gm/dl Hct 33.5 L (42-50) % MCV 75.1 L (78-100) fl MCH 22.0 L (26-32) pg MCHC 29.3 L (32-36) g/dl RDW 18.2 H (11.5-14.0) % Plt Count 712 H (150-450) K/mm3 MPV 9.3 (7.5-11.0) fl Segmented Neutrophils 85 H (36.-66.) % Lymphocytes (Manual) 8 L (24-44) % Monocytes (Manual) 7 (0.0-12.0) % Platelet Estimate NORMAL (NORMAL) RBC Morphology NORMAL Sodium 137 (137-145) mmol/L Potassium 4.0 (3.5-5.1) mmol/L Chloride 97 L (98-107) mmol/L Carbon Dioxide 29 (22-30) mmol/L Anion Gap 14.7 (5-15) MEQ/L BUN 16 (9-20) mg/dL Creatinine 0.80 (0.66-1.25) mg/dL Estimated GFR > 60.0 ML/MIN Glucose 62 L (74-106) mg/dL Calcium 8.6 (8.4-10.2) mg/dL Magnesium 1.9 (1.6-2.3) mg/dL Total Bilirubin 0.60 (0.2-1.3) mg/dL AST 20 (17-59) U/L ALT 13 (0-50) U/L Alkaline Phosphatase 88 (38-126) U/L Troponin I (0.000-0.034) ng/mL Serum Total Protein 6.3 (6.3-8.2) g/dL Albumin 2.8 L (3.5-5.0) g/dL Urine Color (YELLOW) Urine Appearance (CLEAR) Urine pH (5-6) Ur Specific [place] (1.005-1.025) Urine Protein (Negative) Urine Ketones (NEGATIVE) Urine Blood (0-5) García/ul Urine Nitrite (NEGATIVE) Urine Bilirubin (NEGATIVE) Urine Urobilinogen (0-1) mg/dL Ur Leukocyte Esterase (NEGATIVE) Urine WBC (Auto) (0-5) /HPF Urine RBC (Auto) (0-2) /HPF U Epithel Cells (Auto) (FEW) /HPF Urine Bacteria (Auto) (NEGATIVE) /HPF Urine Mucus (Auto) (NEGATIVE) /HPF Urine Culture Reflexed (NO) Urine Glucose (NEGATIVE) mg/dL Influenza Type A Ag (NEGATIVE) Influenza Type B Ag (NEGATIVE) RSV (PCR) (Negative) SARS-CoV-2 (PCR) (NEGATIVE) - Progress Progress: improved Progress Note: Patient reassessed. He feels well. Patient was found to be mildly hypoglycemic. Patient received juice and Jell-O. We will recheck glucose prior to transferring to floor. Plan of care discussed with patient. He agrees to admission [facility] for further evaluation and treatment. Case discussed with Dr. Lyons who accepts admission to observation. Patient voices no other complaints or concerns at this time. 01/20/21 15:43 Discussed with : Brent Will see patient in: hospital (observation) Counseled pt/family regarding: lab results, diagnosis, rad results - Departure Departure Disposition: Observation Clinical Impression: Generalized weakness, Failure to thrive, Lung cancer, Balanoposthitis, Leukocytosis, Microcytic anemia, Thrombocytosis, Hypoalbuminemia, Hypoglycemia, Hematuria Condition: Stable Critical Care Time: No Referrals: KIRAN LYONS [Primary Care Provider] -
[2021-01-20] MEDS ORDERED: SUBLIMAZE 100 MCG/2 ML IV ONE ×2 (12:35→13:31)
[2021-01-20] MEDS ORDERED: Zofran 4 MG/2 ML VIAL IV ONE (12:36)
--- NOTE | 2021-01-20 12:39 | XRAY ---
Indication: Pneumonia. History lung cancer. Comparison: December 05, 2020. Portable chest demonstrates enlarging CT proven left upper lobe masslike opacity. Stable COPD and right apical fibrosis/scarring. Heart not enlarged again with coronary stent. Bony thorax intact again with osteopenia and degenerative changes.
[2021-01-20] MEDS ORDERED: SUBLIMAZE 100 MCG/2 ML ONE ×2 (12:53→13:43)
[2021-01-20] MEDS ORDERED: Zofran 4 MG/2 ML VIAL ONE (12:53)
[2021-01-20 13:21] LABS: Hematocrit 33.5 % (42-50); Hemoglobin 9.8 gm/dl (12.5-18.0); Mean Cell Volume 75.1 fl (78-100); Mean Corpuscular Hgb Concent. 29.3 g/dl (32-36); Mean Platelet Volume 9.3 fl (7.5-11.0); Platelet Count 712 K/mm3 (150-450); Red Blood Count 4.46 M/mm3 (4.1-5.6); Red Cell Distribution Width 18.2 % (11.5-14.0); White Blood Count 18.2 K/mm3 (4.0-10.5)
[2021-01-20 13:27] LABS: Appearance CLEAR (CLEAR); Bilirubin NEGATIVE (NEGATIVE); Blood MODERATE Ery/ul (0-5); Glucose >=500 mg/dL (NEGATIVE); Ketones NEGATIVE (NEGATIVE); Leukocyte Esterase NEGATIVE (NEGATIVE); Mucus SLIGHT /HPF (NEGATIVE); Nitrite NEGATIVE (NEGATIVE); Protein,Urine Dip NEGATIVE (Negative); RBC 51-100 /HPF (0-2); Specific Gravity 1.021 (1.005-1.025); Urobilinogen 4 mg/dL (0-1); WBC 0-2 /HPF (0-5)
[2021-01-20 13:32] LABS: ALBUMIN 2.8 g/dL (3.5-5.0); ALKALINE PHOSPHATASE 88 U/L (38-126); ANION GAP 14.7 MEQ/L (5-15); BLOOD UREA NITROGEN 16 mg/dL (9-20); CHLORIDE 97 mmol/L (98-107); Calcium 8.6 mg/dL (8.4-10.2); Carbon Dioxide 29 mmol/L (22-30); EST GLOMERULAR FILTRATION RATE > 60.0 ML/MIN; Glucose 62 mg/dL (74-106); MAGNESIUM 1.9 mg/dL (1.6-2.3); SGOT/AST 20 U/L (17-59); SGPT/ALT 13 U/L (0-50); SODIUM 137 mmol/L (137-145); Total Protein 6.3 g/dL (6.3-8.2)
[2021-01-20] MEDS ORDERED: Sodium Chloride 0.9% 1000 ML 1,000 ML ONE (13:44)
[2021-01-20] MEDS ORDERED: Sodium Chloride 0.9% 1000 ML 1,000 ML IV SCH (14:15)
[2021-01-20 14:26] LABS: Lymphocytes 8 % (24-44); Monocyte 7 % (0.0-12.0); Neutrophils 85 % (36.-66.); Platelet Estimate NORMAL (NORMAL); Total Cells Counted 100
[2021-01-20 14:39] LABS: INFLUENZA A NEGATIVE (NEGATIVE); INFLUENZA B NEGATIVE (NEGATIVE); RESPIRATORY SYNCTIAL VIRUS NEGATIVE (Negative)
[2021-01-20] MEDS ORDERED: SUBLIMAZE 100 MCG/2 ML IV PRN (15:55)
[2021-01-20] MEDS: DILAUDID 1 MG/1ML PCA IV PRN (16:36)
[2021-01-20] MEDS ORDERED: Protonix 40MG Tablet PO SCH (22:00)
[2021-01-20] MEDS: ZOCOR 20MG PO SCH (22:17)
[2021-01-21] MEDS: Sodium Chloride 0.9% 1000 ML 1,000 ML IV SCH ×3 (03:21→14:51)
[2021-01-21 05:12] LABS: Hematocrit 28.7 % (42-50); Hemoglobin 8.3 gm/dl (12.5-18.0); Mean Cell Volume 76.1 fl (78-100); Mean Corpuscular Hgb Concent. 28.9 g/dl (32-36); Mean Platelet Volume 8.8 fl (7.5-11.0); Platelet Count 579 K/mm3 (150-450); Red Blood Count 3.77 M/mm3 (4.1-5.6); White Blood Count 17.1 K/mm3 (4.0-10.5)
[2021-01-21 05:32] LABS: ALBUMIN 2.4 g/dL (3.5-5.0); ALKALINE PHOSPHATASE 77 U/L (38-126); ANION GAP 11.2 MEQ/L (5-15); BLOOD UREA NITROGEN 16 mg/dL (9-20); CHLORIDE 99 mmol/L (98-107); Calcium 8.1 mg/dL (8.4-10.2); Carbon Dioxide 25 mmol/L (22-30); Creatinine 1 0.75 mg/dL (0.66-1.25); EST GLOMERULAR FILTRATION RATE > 60.0 ML/MIN; Glucose 173 mg/dL (74-106); Potassium 4.3 mmol/L (3.5-5.1); SGOT/AST 18 U/L (17-59); SGPT/ALT 11 U/L (0-50); SODIUM 131 mmol/L (137-145); Total Protein 5.3 g/dL (6.3-8.2)
[2021-01-21] MEDS ORDERED: Lantus Insulin SQ SCH (08:00)
[2021-01-21] MEDS ORDERED: MEDICATION INTERVENTION MC SCH (08:15)
[2021-01-21] MEDS ORDERED: PHARMACY DOSING REQUEST MC ONE (08:26)
--- NOTE | 2021-01-21 08:38 | HP ---
CHIEF COMPLAINT: Weakness, inability to be cared for in the home by the family, known lung cancer in the left upper lobe and chronic pain from his metastatic cancer. HISTORY OF PRESENT ILLNESS: The patient is an 85 year-old white male patient who has been having problems with left upper shoulder pain for a number of months. Originally it was thought to be a pinched nerve in the neck but CT scan showed him to have an infiltrating lesion. He has been seen by Dr. Horowitz for oncology and is planned to have chemotherapy soon. He missed the appointment to get his port placed because of his weakness. PAST MEDICAL/SURGICAL HISTORY: The patient also has history of diabetes mellitus type II. He has been losing weight. He has been using Lantus for his sugar coverage but actually he probably needs this to be decreased. The patient otherwise has a history of coronary artery disease and hyperlipidemia. He previously had a cholecystectomy. He also previous had CVA affecting the left side as well. HOME MEDICATIONS: Aspirin 81 mg a day, atorvastatin 20 mg daily, Invokana 100 mg a day, Plavix 75 mg daily, fluoxetine 10 mg daily, [place] 10/325 mg q.8h PRN pain, Levemir 20 units subcu b.i.d., omeprazole 20 mg b.i.d., Zofran 4 mg t.i.d. nausea. ALLERGIES: THE PATIENT CURRENTLY REPORTS MORPHINE AN ALLERGY BUT REPORTS THAT HE PASSED OUT WITH THIS AND IT DOES NOT SOUND LIKE A TRUE ALLERGY. PHYSICAL EXAMINATION: Physical examination reveals a malnourished appearing, elderly white male who is still alert and oriented x3. VITAL SIGNS: The patient's vital signs on admission showed his respiratory rate to be 22, blood pressure 113/65. O2 saturation was 97%. His heart rate has been 108, temperature 97.7F. HEENT: His oropharynx appears to be dry. NECK: Appears to be supple with some questionable lymph node enlargement in the left apices of the chest. CHEST: Essentially clear to auscultation. HEART: Regular rate and rhythm although slightly tachycardic. ABDOMEN: Soft without palpable masses. : He does have a Rust catheter in presently. He is uncircumcised and apparently has a phimosis. EXTREMITIES: Without cyanosis, clubbing or edema. NEUROLOGIC: The patient is alert and oriented x3 with no obvious focal deficits at this time. LAB DATA AND TESTS: His CT scan revealed enlarging left upper lobe mass-like opacity. He had glucose of 62 on admission. His BUN 16, creatinine 0.8. Electrolytes were normal. Liver enzymes were normal. His albumin is slightly low at 2.8. His white count is elevated at 18,200, hemoglobin 9.8, PLT count 712,000. Troponin was less than 0.012. He was negative for COVID, influenza and RSV. ASSESSMENT: A patient with lung cancer and secondary pain. He is currently planned to have a port placed and get aggressive management for chemotherapy. Dr. Horowitz at [facility] in [place] is controlling his medications for this. He missed an appointment to get a port placed, will ask a surgeon to see him while he is here and consider putting a port in for him while he is here. Due to his nutrition issues, we will ask the pharmacy for at least peripheral hyperalimentation, fluids to be given to him. He needs slight increase in fluids at 150 cc/hour due to his appearance of dehydration. We will continue his home medications but will hold his long acting insulin and do a sliding scale coverage for him. He is likely to remain low on his sugar but if he gets TPN we will have to watch this more closely.
[2021-01-21] MEDS: ECOTRIN 81 MG PO SCH (09:06)
[2021-01-21] MEDS: PLAVIX 75 MG Tablet PO SCH (09:06)
[2021-01-21] MEDS: HYDROCODONE-ACETAMIN 10-325 MG PO SCH ×3 (09:16→21:28)
[2021-01-21] MEDS: FLUOXETINE HCL PO SCH (09:17)
[2021-01-21] MEDS: Protonix 40MG Tablet PO SCH ×2 (09:17→21:28)
[2021-01-21] MEDS: ZOFRAN ODT 4 MG PO PRN (09:46)
[2021-01-21] MEDS ORDERED: NON-FORMULARY ITEM (Canagliflozin [Invokana] 100 MG) PO SCH (10:00)
[2021-01-21] MEDS ORDERED: NON-FORMULARY ITEM (Insulin Detemir [Levemir] 20 UNIT) SQ SCH (10:00)
[2021-01-21 11:09] LABS: ANISOCYTOSIS 1+; Hypochromia 1+; Lymphocytes 6 % (24-44); Microcytosis 1+; Monocyte 2 % (0.0-12.0); Neutrophils 92 % (36.-66.); Platelet Estimate INCREASED (NORMAL); Total Cells Counted 100
[2021-01-21] MEDS ORDERED: Zithromax 500 MG/ 250 ML NaCl Premix 500 MG/250 ML IVPB IV SCH (12:00)
[2021-01-21] MEDS ORDERED: ROCEPHIN 1 Gm-D5w 50 ml Bag** 1 G/50 ML IVPB IV SCH (12:00)
[2021-01-21] MEDS: HUMALOG SQ PRN ×2 (12:17→16:25)
[2021-01-21] MEDS: INTRALIPID 20% IV SCH (13:31)
[2021-01-21] MEDS: [UNRECOGNIZED DRUG - OTHER] IV SCH (13:31)
[2021-01-21] MEDS: VITAMINS FOR INFUSION IV SCH (13:31)
[2021-01-21] MEDS: ZOCOR 20MG PO SCH (21:28)
[2021-01-21] MEDS: Colace 100 MG PO SCH (21:28)
[2021-01-22] MEDS: HUMALOG SQ PRN ×3 (00:02→17:44)
[2021-01-22 05:00] LABS: Absolute Neutrophil Ct (ANC) 13.65 (1.4-6.9); BASOPHIL % 0.1 % (0.0-0.4); Basophil (Absolute #) 0.02 (0-0.4); Eosinophil % 0.4 % (0.00-5.0); Eosinophil (Absolute #) 0.07 (0-0.5); Hematocrit 26.8 % (42-50); Hemoglobin 7.6 gm/dl (12.5-18.0); Lymphocyte (Absolute #) 1.24 (1.0-4.6); Lymphocytes % 7.9 % (24.0-44.0); Mean Corpuscular Hemoglobin 21.8 pg (26-32); Mean Corpuscular Hgb Concent. 28.4 g/dl (32-36); Mean Platelet Volume 8.8 fl (7.5-11.0); Monocyte (Absolute #) 0.79 (0.0-1.3); Neutrophil % 86.6 % (36.0-66.0); Platelet Count 497 K/mm3 (150-450); Red Blood Count 3.48 M/mm3 (4.1-5.6); Red Cell Distribution Width 17.9 % (11.5-14.0); White Blood Count 15.8 K/mm3 (4.0-10.5)
[2021-01-22] MEDS: HYDROCODONE-ACETAMIN 10-325 MG PO SCH ×3 (05:22→21:51)
[2021-01-22 07:35] LABS: Slide Review 1 YES
[2021-01-22] MEDS: DILAUDID 1 MG/1ML PCA IV PRN (08:55)
[2021-01-22] MEDS ORDERED: PHARMACY DOSING REQUEST MC ONE (08:56)
[2021-01-22] MEDS: Sodium Chloride 0.9% 1000 ML 1,000 ML IV SCH ×2 (09:26→21:50)
[2021-01-22] MEDS: Protonix 40MG Tablet PO SCH ×2 (09:32→21:51)
[2021-01-22] MEDS: ECOTRIN 81 MG PO SCH (09:32)
[2021-01-22] MEDS: Colace 100 MG PO SCH ×2 (09:32→21:51)
[2021-01-22] MEDS: PLAVIX 75 MG Tablet PO SCH (09:32)
[2021-01-22] MEDS: FLUOXETINE HCL PO SCH (09:33)
[2021-01-22] MEDS: Dilaudid 4 MG Tab PO PRN ×2 (09:47→20:58)
[2021-01-22] MEDS: Zosyn 3.375 GM Vial 3.375 GM in Sodium Chloride 100ML MINI-BAG PLUS 100 ML IV SCH ×2 (10:03→17:43)
[2021-01-22] MEDS: INTRALIPID 20% IV SCH (14:27)
[2021-01-22] MEDS: [UNRECOGNIZED DRUG - OTHER] IV SCH (14:27)
[2021-01-22] MEDS: VITAMINS FOR INFUSION IV SCH (14:27)
[2021-01-22] MEDS: ZOCOR 20MG PO SCH (21:51)
[2021-01-22] MEDS: ZOFRAN ODT 4 MG PO PRN (22:10)
[2021-01-23] MEDS: HUMALOG SQ PRN ×2 (00:59→11:38)
[2021-01-23] MEDS: Zosyn 3.375 GM Vial 3.375 GM in Sodium Chloride 100ML MINI-BAG PLUS 100 ML IV SCH ×4 (00:59→17:04)
[2021-01-23 04:58] LABS: Hematocrit 25.3 % (42-50); Hemoglobin 7.3 gm/dl (12.5-18.0); Mean Cell Volume 76.2 fl (78-100); Mean Corpuscular Hgb Concent. 28.9 g/dl (32-36); Mean Platelet Volume 9.1 fl (7.5-11.0); Platelet Count 464 K/mm3 (150-450); Red Blood Count 3.32 M/mm3 (4.1-5.6); Red Cell Distribution Width 17.6 % (11.5-14.0); White Blood Count 17.1 K/mm3 (4.0-10.5)
[2021-01-23 05:27] LABS: ALBUMIN 2.1 g/dL (3.5-5.0); ALKALINE PHOSPHATASE 64 U/L (38-126); ANION GAP 10.1 MEQ/L (5-15); BLOOD UREA NITROGEN 21 mg/dL (9-20); CHLORIDE 98 mmol/L (98-107); Calcium 8.2 mg/dL (8.4-10.2); Carbon Dioxide 25 mmol/L (22-30); Creatinine 1 0.67 mg/dL (0.66-1.25); EST GLOMERULAR FILTRATION RATE > 60.0 ML/MIN; Glucose 187 mg/dL (74-106); Potassium 4.3 mmol/L (3.5-5.1); SGOT/AST 18 U/L (17-59); SGPT/ALT 9 U/L (0-50); SODIUM 129 mmol/L (137-145); Total Protein 4.9 g/dL (6.3-8.2)
[2021-01-23] MEDS: HYDROCODONE-ACETAMIN 10-325 MG PO SCH ×2 (05:34→13:09)
[2021-01-23] MEDS: ZOFRAN ODT 4 MG PO PRN (05:34)
[2021-01-23] MEDS ORDERED: MILK OF MAGNESIA 30 ML PO ONE (07:08)
[2021-01-23] MEDS ORDERED: PHARMACY DOSING REQUIRED: VANCOMYCIN IV STA (07:08)
[2021-01-23 07:17] LABS: BAND 8 % (0.0-2.0); Eosinophil 1 % (0.00-3.0); Lymphocytes 10 % (24-44); Monocyte 6 % (0.0-12.0); Neutrophils 75 % (36.-66.); Total Cells Counted 100
[2021-01-23 07:19] LABS: ANISOCYTOSIS 1+; Hypochromia 2+; Platelet Estimate INCREASED (NORMAL)
[2021-01-23 07:20] LABS: Absolute Neutrophil Ct (ANC) 14.22 (1.4-6.9)
[2021-01-23] MEDS: Dilaudid 4 MG Tab PO PRN ×2 (07:54→15:24)
[2021-01-23] MEDS: ECOTRIN 81 MG PO SCH (09:06)
[2021-01-23] MEDS: Protonix 40MG Tablet PO SCH (09:06)
[2021-01-23] MEDS: FLUOXETINE HCL PO SCH (09:06)
[2021-01-23] MEDS: Colace 100 MG PO SCH (09:06)
[2021-01-23] MEDS: PLAVIX 75 MG Tablet PO SCH (09:06)
[2021-01-23 09:27] LABS: ABO TYPING O; Antibody Screen NEGATIVE (NEGATIVE); RH TYPING POSITIVE
[2021-01-23 09:34] LABS: CROSS MATCH (PRBC) COMPATIBLE (COMPATIBLE)
[2021-01-23] MEDS ORDERED: VANCOMYCIN 1 GRAM/200 ML BAG 1 GM/200 ML PIGGYBACK IV SCH (10:00)
[2021-01-23] MEDS ORDERED: Zofran 4 MG/2 ML VIAL IV PRN (10:02)
[2021-01-23] MEDS ORDERED: Ativan 2 MG/1 ML VIAL IV ONE (10:13)
[2021-01-23] MEDS: Sodium Chloride 0.9% 1000 ML 1,000 ML IV SCH (12:49)
[2021-01-23] MEDS ORDERED: Ativan 2 MG/1 ML VIAL IV PRN (13:24)
[2021-01-23] MEDS ORDERED: INTRALIPID 20% IV SCH ×4 (14:00)
[2021-01-23] MEDS ORDERED: VITAMINS FOR INFUSION IV SCH ×4 (14:00)
[2021-01-23] MEDS ORDERED: [UNRECOGNIZED DRUG - OTHER] IV SCH ×4 (14:00)
[2021-01-23] MEDS ORDERED: Geodon 20 MG INJ IM ONE (14:37)
[2021-01-23] MEDS ORDERED: STERILE WATER FOR INJECTION 20 ML IJ SCH (14:45)
[2021-01-23 15:53] VITALS: BP 98/46; PULSE 103; O2SAT 95
[2021-01-25] MEDS ORDERED: TROUGH DRUG LEVELS IJ ONE (09:30)
--- NOTE | 2021-01-26 08:58 | DS ---
The patient was transferred to [facility] for care by Dr. Edi Mcdermott for radiation treatment of the lung cancer. DISCHARGE DIAGNOSES: 1) LUNG CANCER. 2) ANEMIA. 3) PHIMOSIS. 4) DIABETES MELLITUS. HISTORY: The patient is an 85 year-old white male patient who has known diagnosis of left apical mass in his lung considered to be lung cancer. The patient has been seen by Dr. Horowitz and Dr. Mcdermott and an appointment has been made for him to receive radiation treatment and chemotherapy. The patient however got too weak to be cared for in the home and was brought into our facility for care to include pain management, IV fluids and nutrition management. He also appeared to have some elevation in his white count. We were concerned for infection. We checked a procalcitonin level which was elevated. He initially received Rocephin and Zithromax without any improvement and this was changed to Zosyn also with still no improvement in the procalcitonin or the white count staying at around 18,000 and 0.9 on procalcitonin level. The patient was added Vancomycin today. He had a plan to have a port placed but we felt that it was best to hold off on this with his elevated white count and elevated procalcitonin level which we realized maybe related to his cancer but we were concerned for possible underlying infection. During the patient's stay he received treatments with transfusion of 2 units of packed red blood cells for hemoglobin at 7.2. MEDICATIONS: The patient's usual home medications were omeprazole 20 mg b.i.d., atorvastatin 20 mg at night, aspirin 81 mg a day, fluoxetine 10 mg a day. He takes Levemir 20 units twice daily. Zofran for nausea. Invokana 100 mg. HOSPITAL COURSE: At this time the patient has been having problems over the last 24 hours with increasing dementia. We tried some Ativan without much help. We placed him on some Geodon which did make a big impact on helping his problem. After Dr. Mcdermott was contacted the family had discussion with him. He wished him to be transferred to [facility] for radiation treatments and further evaluation and management. We discussed this with the accepting physician Hospitalist doctor at [facility] that accepts his transfer which we will send up there this evening for further evaluation, management and treatments from his radiation oncologist.
== END 2021-01-23 17:38 | disposition short-term general hospital (02) | DRG 182 ==
LOC: ED 11:55 → MED SURG 15:52 → OBSVTOIN 01-22 07:00 → MED SURG 01-22 21:21
PROVIDERS: ADMIT Family Medicine; ATTEND Family Medicine
DX: C34.92 Malignant neoplasm of unspecified part of left bronchus or lung (principal); R53.1 Weakness; Z79.899 Other long term (current) drug therapy; E11.9 Type 2 diabetes mellitus without complications; E78.00 Pure hypercholesterolemia, unspecified; Z86.79 Personal history of other diseases of the circulatory system; D64.9 Anemia, unspecified; N47.1 Phimosis; F03.90 Unspecified dementia, unspecified severity, without behavioral disturbance, psychotic disturbance, mood disturbance, and anxiety; Z86.73 Personal history of transient ischemic attack (TIA), and cerebral infarction without residual deficits; Z79.4 Long term (current) use of insulin; E86.0 Dehydration; R41.0 Disorientation, unspecified; Z20.828 Contact with and (suspected) exposure to other viral communicable diseases
CPT/HCPCS: 0241U; 36000; 36415; 36430; 71045; 80053; 81001; 82947; 83735; 84145; 84484; 85025; 86850; 86900; 86901; 86922; 87040; 93005; 93041; 93268; 94760; 94762; 96360; 96361; 96374; 96375; 96376; 97161; 97530; 99285; G0378; P9016; 77001; J0456; J0696; J1170; J1815; J1817; J2060; J2405; J3010; J3486; Q0162; A9270-GY; J3370